=== PATIENT | female | born 1995 | race Caucasian/White ===

== ENCOUNTER 2016-03-23 14:58 | Emergency (ER) | payer OTHER ==
[~2016-03-23] VITALS: Ht 157.5 cm; Wt 60.0 kg
[~2016-03-23 14:58] MED LIST: FERR325T PO; ZOLO50TA PO
[2016-03-23 15:01] VITALS: BP 126/82; PULSE 134; RESP 20; TEMP 98.3; O2SAT 100
[2016-03-23 15:10] VITALS: PULSE 108; O2SAT 100
--- NOTE | 2016-03-23 15:59 | PD ---
HPI Chief Complaint: Cold / Flu Symptoms Time Seen by Provider: 15:57 Travel History International Travel<30 days: No Contact w/Intl Traveler<30days: No Traveled to known affect area: No History of Present Illness HPI 20-year-old female presents to the emergency department for evaluation of cough , sore throat, headache, body aches and subjective fever for one day. The patient states that her symptoms began last night. States that she has not taken anything for symptoms so far. She has had sick contacts over the past month. Denies any recent travel. She also complains of dental pain, states that for several months her wisdom teeth have been coming in and causing her pain. Denies nausea, vomiting, chest pain, shortness of breath, abdominal pain , diarrhea, constipation. Denies , last menstrual period was 2 weeks ago. No other complaints. PFSH Past Medical History Anemia: Yes Diminished Hearing: No (NEEDS TUBES IN EARS) Sleep Apnea: Yes Tetanus Vaccination: < 5 Years ?: Not LMP: 03/02/16 Menopausal: Yes : 2 Para: 1 Miscarriage: 1 Dilation and Curettage (D&C): No Social History Alcohol Use: No Tobacco Use: Yes Substance Use: No Allergies-Medications (Allergen,Severity, Reaction): Coded Allergies: Doxycycline (Verified Adverse Reaction, Severe, VOMITING, 03/23/16) Reported Meds & Prescriptions Reported Meds & Active Scripts Active Naproxen 500 Mg Tab 500 Mg PO BID 7 Days Zoloft (Sertraline HCl) 50 Mg Tab 50 Mg PO DAILY Reported Ferrous Sulfate 325 Mg Tab 325 Mg PO DAILY Review of Systems Except as stated in HPI: all other systems reviewed are Neg Physical Exam Narrative GENERAL: Well-nourished and well-developed pleasant patient in no acute distress who is nontoxic appearing. SKIN: Warm and dry. HEAD: Normocephalic and atraumatic. EYES: No injection, drainage, or hyphema noted. PERRLA. EOMI. ENT: No nasal drainage noted. Oropharynx is clear. NECK: Supple and the trachea is midline. CARDIOVASCULAR: Regular rate and rhythm. RESPIRATORY: Breath sounds are equal bilaterally with no accessory muscle use, wheezing, rhonchi, or crackles. MUSCULOSKELETAL: No obvious deformities, swelling, cyanosis, or ecchymosis is present throughout the upper and lower extremities. Patient has full range of motion without any signs of neurovascular compromise. NEUROLOGICAL: Awake, alert, and oriented. Normal speech and gait. Cranial nerves are grossly intact. Data Data Last Documented VS Vital Signs Date Time Temp Pulse Resp B/P Pulse Ox O2 Delivery O2 Flow Rate FiO2 03/23/16 15:10 108 100 03/23/16 15:01 98.3 20 126/82 Room Air Orders Influenzae A/B Antigen (03/23/16 15:56) MDM Medical Decision Making Medical Screen Exam Complete: Yes Emergency Medical Condition: Yes Differential Diagnosis Viral illness versus influenza versus URI versus dentalgia Narrative Course 20-year-old female presents to the emergency department for evaluation of cold and flu symptoms as well as dental pain. Patient is afebrile. She is tachycardic with heart rate of 108 bpm. Otherwise vital signs are stable. Physical examination is essentially unremarkable. Influenza swab is negative. This is a viral upper respiratory infection with dental pain secondary to wisdom teeth. She is instructed to follow-up with a dentist regarding her wisdom teeth. Discussed supportive care and when to return to the emergency department. Advised outpatient follow-up. Diagnosis Primary Impression: Upper respiratory infection Qualified Code: J06.9 - Upper respiratory tract infection, unspecified type Additional Impression: Pain, dental Referrals: Dentist Patient Instructions: General Instructions, Upper Respiratory Infection (ED) Departure Forms: Tests/Procedures, Work Release Enter return to work date: Mar 26, 2016 Additional Instructions: Take medication as prescribed with food and a full glass of water. Follow-up with your Dentist. Return to the ED for any acute worsening of symptoms. Med/Other Pt SpecificInfo: Prescription(s) given Scripts Naproxen 500 Mg [id number] Mg PO BID 7 Days Ref 0 Prov:Hortensia Montague 03/23/16 Disposition: 01 DISCHARGE HOME Condition: Stable Margareth Fowler Mar 23, 2016 15:59
[2016-03-23] MEDS ORDERED: NAPR500T PO (16:52)
[2016-06-18] MEDS ORDERED: PREN1MIS11 PO (14:38)
[2016-07-09] MEDS ORDERED: FERR325T50 PO (13:32)
== END 2016-03-23 16:58 | disposition home or self-care (01) ==
LOC: NEPB 14:58
DX: J06.9 Acute upper respiratory infection, unspecified (principal); K08.89 Other specified disorders of teeth and supporting structures; D64.9 Anemia, unspecified; Z72.0 Tobacco use
CPT/HCPCS: 87804; 99283

== ENCOUNTER 2016-05-06 14:57 | Emergency (ER) | payer OTHER ==
[~2016-05-06] VITALS: Ht 157.5 cm; Wt 62.0 kg
[~2016-05-06 14:57] MED LIST changes: +NAPR500T PO
[2016-05-06 14:59] VITALS: BP 153/84; PULSE 70; RESP 15; TEMP 98.2; O2SAT 98
--- NOTE | 2016-05-06 17:02 | PD ---
HPI Chief Complaint: Back/ Neck Pain or Injury Time Seen by Provider: 17:00 Travel History International Travel<30 days: No Contact w/Intl Traveler<30days: No Traveled to known affect area: No History of Present Illness HPI 20-year-old female presents to the emergency department for evaluation of low back pain that started 2 weeks ago without traumatic injury. Patient denies any fevers or chills. No loss of bowel or bladder control. No saddle anesthesias. She states she took ibuprofen for pain without relief. Patient states it is throughout her entire lower back. Patient also states she has hemorrhoids. She states this is due to going to the bathroom often, which is chronic for her. Patient denies any chronic medical problems. She takes no prescribed medications. She denies any history of IVDU. Patient does not believe she is , but states that her period was due yesterday and she has not started. PFSH Past Medical History Anemia: Yes Sleep Apnea: Yes ?: Unknown LMP: 04/05/16 Menopausal: Yes : 2 Para: 1 Miscarriage: 1 Dilation and Curettage (D&C): No Past Surgical History Section: Yes Social History Alcohol Use: No Tobacco Use: Yes (Pack day) Substance Use: No Allergies-Medications (Allergen,Severity, Reaction): Coded Allergies: Doxycycline (Verified Adverse Reaction, Severe, VOMITING, 05/06/16) Reported Meds & Prescriptions Reported Meds & Active Scripts Active Naproxen 500 Mg Tab 500 Mg PO BID 7 Days Zoloft (Sertraline HCl) 50 Mg Tab 50 Mg PO DAILY Reported Ferrous Sulfate 325 Mg Tab 325 Mg PO DAILY Review of Systems Except as stated in HPI: all other systems reviewed are Neg Physical Exam Narrative GENERAL: Well-nourished, well-developed female patient, ambulatory. Afebrile. SKIN: Focused skin assessment warm/dry. HEAD: Normocephalic. Atraumatic. EYES: No scleral icterus. No injection or drainage. NECK: Supple, trachea midline. No JVD or lymphadenopathy. CARDIOVASCULAR: Regular rate and rhythm without murmurs, gallops, or rubs. RESPIRATORY: Breath sounds equal bilaterally. No accessory muscle use. Lungs sounds are clear to auscultation. GASTROINTESTINAL: Abdomen soft, non-tender, nondistended. MUSCULOSKELETAL: No cyanosis, or edema. Bilateral upper and lower extremity strength 5/5. All symptoms are neurovascularly intact. BACK: No obvious deformity. No CVA tenderness. Patient has tenderness over bilateral lumbar paraspinal musculature. RECTAL EXAM: Patient has external hemorrhoid at the 6 o'clock position. Data Data Last Documented VS Vital Signs Date Time Temp Pulse Resp B/P Pulse Ox O2 Delivery O2 Flow Rate FiO2 05/06/16 14:59 98.2 70 15 153/84 98 Orders Ed Urine Pregnancytest Poc (05/06/16 16:59) Urinalysis - C+S If Indicated (05/06/16 16:59) Labs Laboratory Tests Test 05/06/16 17:18 Urine Color YELLOW Urine Turbidity HAZY Urine pH 6.0 Urine Specific [place] 1.023 Urine Protein 30 mg/dL Urine Glucose (UA) NEG mg/dL Urine Ketones NEG mg/dL Urine Occult Blood NEG Urine Nitrite NEG Urine Bilirubin NEG Urine Urobilinogen LESS THAN 2.0 MG/DL Urine Leukocyte Esterase NEG Urine RBC 1 /hpf Urine WBC 2 /hpf Urine Squamous Epithelial 8 /hpf Cells Urine Mucus MOD /lpf Microscopic Urinalysis Comment CULT NOT INDICATED MDM Medical Decision Making Medical Screen Exam Complete: Yes Emergency Medical Condition: Yes Medical Record Reviewed: Yes Differential Diagnosis Muscle strain versus muscle spasm versus UTI versus versus hemorrhoid Narrative Course 20-year-old female presents to the emergency department for evaluation of low back pain for 2 weeks without traumatic injury. No red flag symptoms. UA and urine test are ordered and pending. UA .shows no evidence of acute infection. Urine test is negative. I reexamined patient, she has no abdominal pain to palpation. Her back pain is easily reproducible with palpation and is worse with movement. She denies any abnormal vaginal discharge or bleeding. Patient states she was due to have her menstrual cycle yesterday so is approximately 4 weeks . I discussed the case my attending physician, Dr. Thacker, who also states that no further testing is needed for . Diagnosis Primary Impression: Low back pain Qualified Code: M54.5 - Acute bilateral low back pain without sciatica Additional Impressions: Qualified Code: Z3A.01 - Less than 8 weeks gestation of Hemorrhoid Qualified Code: K64.9 - Hemorrhoids, unspecified hemorrhoid type Additional Instructions: Increase fiber. Sitz baths for hemorrhoid. Cool compresses to hemorrhoid for pain. Take Tylenol every 4 hours as needed for pain. Follow-up with an regional construction manager and your primary care physician. Return to the emergency department for any acute worsening of symptoms. Med/Other Pt SpecificInfo: No Change to Meds Disposition: 01 DISCHARGE HOME Condition: Stable Arabella Zamora BISMARK May 06, 2016 17:02
[2016-05-06 17:33] LABS: BLOOD, URINE NEG (NEG); GLUCOSE,URINE NEG (NEG); KETONE, URINE NEG (NEG); MUCUS URINE MOD /lpf (OCC); NITRITE,URINE NEG (NEG); SQUAMOUS EPITHELIAL CELL URINE 8 /hpf (0-5); URINE COLOR YELLOW (YELLW/STRAW)
[2016-05-06 17:34] LABS: COMMENT (UR) CULT NOT INDICATED; CULTURE IF INDICATED CULT NOT INDICATED
[2016-05-06] MEDS ORDERED: ACETAMINOPHEN 325 MG TAB PO ONE (17:45)
[2016-06-18] MEDS ORDERED: PREN1MIS11 PO (14:38)
[2016-07-09] MEDS ORDERED: FERR325T50 PO (13:32)
== END 2016-05-06 17:58 | disposition home or self-care (01) ==
LOC: NEPB 14:57
DX: M54.5 Low back pain (principal); Z33.1 Pregnant state, incidental; K64.9 Unspecified hemorrhoids; Z3A.01 Less than 8 weeks gestation of pregnancy
CPT/HCPCS: 81001; 84703; 99283

== ENCOUNTER 2016-07-13 10:26 | Emergency (ER) | payer OTHER ==
[~2016-07-13] VITALS: Ht 157.5 cm; Wt 52.5 kg
[~2016-07-13 10:26] MED LIST changes: -FERR325T PO; +FERR325T50 PO; -NAPR500T PO; +PREN1MIS11 PO; -ZOLO50TA PO
[2016-07-13 10:27] VITALS: BP 124/65; PULSE 54; RESP 20; TEMP 98.4; O2SAT 99
[2016-07-13] MEDS ORDERED: ZOFR4TAB3 SL ×2 (10:49→12:13)
[2016-07-13] MEDS ORDERED: SODIUM CHLORID 0.9% 500 ML INJ 500 ML IV ONE (11:00)
[2016-07-13] MEDS ORDERED: FAMOTIDINE 20 MG TAB PO ONE (11:00)
[2016-07-13] MEDS ORDERED: SODIUM CHLORIDE 0.9% FLUSH 10 ML FLUSH IV FLUSH PRN (11:00)
[2016-07-13] MEDS ORDERED: ONDANSETRON HCL 4 MG/2 ML VIAL IVP ONE (11:00)
--- NOTE | 2016-07-13 11:10 | PD ---
HPI Chief Complaint: GI Complaint Time Seen by Provider: 11:03 Travel History International Travel<30 days: No Contact w/Intl Traveler<30days: No Traveled to known affect area: No History of Present Illness HPI Patient is approximately 13 weeks comes in complaining of nausea and vomiting times one week. Patient states she was prescribed Zofran but has not been taking it until today when she tried one dose, but she continued to have another episode of vomiting. Patient is A1. Patient reports history of preeclampsia with her first , hypertension, and anemia. Patient takes labetalol and iron supplements. Patient denies any chest pain, shortness of breath, loss change in bowel or bladder, or fevers. Patient reports pain in her epigastric region that occurs right before she has to vomit that radiates up into her chest. Pain lasts until approximately 30 minutes post emesis. Patient denies doing anything for this. Patient denies any other issues with her previous pregnancies. PFSH Past Medical History Hx Anticoagulant Therapy: No Anemia: Yes Cardiovascular Problems: No Chemotherapy: No Cerebrovascular Accident: No Diabetes: No Hypertension: Yes Respiratory: No Sleep Apnea: Yes ?: LMP: LMP 04/08/16 Menopausal: Yes : 2 Para: 1 Miscarriage: 1 Dilation and Curettage (D&C): No Past Surgical History Section: Yes Social History Alcohol Use: No Tobacco Use: Yes Substance Use: No Allergies-Medications (Allergen,Severity, Reaction): Coded Allergies: Doxycycline (Verified Adverse Reaction, Severe, VOMITING, 07/13/16) Reported Meds & Prescriptions Reported Meds & Active Scripts Active Phenergan Supp (Promethazine HCl) 12.5 Mg Supp 12.5 Mg RECTAL Q6H PRN Zofran Odt (Ondansetron Odt) 4 Mg Tab 4 Mg SL Q6HR PRN Keflex (Cephalexin) 500 Mg Cap 500 Mg PO Q8H Krissy-Time (Ferrous Sulfate) 325 Mg Tablet 325 Tab PO BID PRN Citranatal 90 Dha Pack ( W/O Vit A W/ Fe Carbo Pack) 90-1 & 300 Mg Pack 1 Ea PO DAILY 30 day supply. Reported Zofran Odt (Ondansetron Odt) 4 Mg Tab 4 Mg SL Q6HR PRN Review of Systems Except as stated in HPI: all other systems reviewed are Neg Physical Exam Narrative GENERAL: Well-developed, well nourished, in no acute distress, and non-ill appearing. SKIN: Focused skin assessment warm and dry. HEAD: Atraumatic. Normocephalic. EYES: Pupils equal and round. EOMI. No scleral icterus. No injection or drainage. ENT: No nasal bleeding or discharge. Mucous membranes pink and moist. NECK: Trachea midline. Supple. No nuclear rigidity. CARDIOVASCULAR: Regular rate and rhythm. No murmur appreciated. RESPIRATORY: No accessory muscle use. No respiratory distress. Clear to auscultation. Breath sounds equal bilaterally. GASTROINTESTINAL: Abdomen soft, non-tender, nondistended. Hepatic and splenic margins not palpable. Normal bowel sounds 4. No pulsatile mass. Gravid uterus. MUSCULOSKELETAL: No obvious deformities. No clubbing. No cyanosis. No edema. Full range of motion. NEUROLOGICAL: Awake and alert. No obvious cranial nerve deficits. Motor grossly within normal limits. Normal speech. PSYCHIATRIC: Appropriate mood and affect; insight and judgment normal. Data Data Last Documented VS Vital Signs Date Time Temp Pulse Resp B/P Pulse Ox O2 Delivery O2 Flow Rate FiO2 07/13/16 11:17 100 Room Air 07/13/16 10:27 98.4 54 20 124/65 Orders Basic Metabolic Panel (Bmp) (07/13/16 10:58) Urinalysis - C+S If Indicated (07/13/16 10:58) Iv Access Insert/Monitor (07/13/16 10:58) Ecg Monitoring (07/13/16 10:58) Oximetry (07/13/16 10:58) Ondansetron Inj (Zofran Inj) (07/13/16 11:00) Sodium Chloride 0.9% Flush (Ns Flush) (07/13/16 11:00) Famotidine (Pepcid) (07/13/16 11:00) Heart Tones (07/13/16 10:58) Sodium Chlorid 0.9% 500 Ml Inj (Ns 500 M (07/13/16 11:00) Urine Culture (07/13/16 11:16) Labs Laboratory Tests Test 07/13/16 11:16 Urine Color DARK-YELLOW Urine Turbidity HAZY Urine pH 7.0 Urine Specific [place] 1.028 Urine Protein 100 mg/dL Urine Glucose (UA) NEG mg/dL Urine Ketones 40 mg/dL Urine Occult Blood NEG Urine Nitrite NEG Urine Bilirubin NEG Urine Urobilinogen 4.0 MG/DL Urine Leukocyte Esterase LARGE Urine RBC 5 /hpf Urine WBC 20 /hpf Urine Squamous Epithelial 28 /hpf Cells Urine Transitional Epithelial <1 /hpf Cells Urine Amorphous Sediment RARE Urine Bacteria MOD /hpf Urine Mucus MANY /lpf Microscopic Urinalysis Comment CULTURE INDICATED Sodium Level 136 MEQ/L Potassium Level 3.4 MEQ/L Chloride Level 104 MEQ/L Carbon Dioxide Level 22.6 MEQ/L Anion Gap 9 MEQ/L Blood Urea Nitrogen 5 MG/DL Creatinine 0.67 MG/DL Estimat Glomerular Filtration 110 ML/MIN Rate Random Glucose 80 MG/DL Calcium Level 8.7 MG/DL MDM Medical Decision Making Medical Screen Exam Complete: Yes Emergency Medical Condition: Yes Differential Diagnosis Hyperemesis , gastritis , nausea and vomiting, electrolyte abnormality, UTI, other Narrative Course heart tones found to be in the 150s. 1200 patient resting comfortably in bed in no acute distress. Patient states was a little bit nauseous to but is hungry and wants to eat. He tells patient' s discharge home the prescription of Zofran and Phenergan suppositories as well as antibiotic Keflex for her UTI. Patient looks great, non-ill appearing but does appear slightly volume depleted without evidence of significant dehydration. The patient was given IVF in the Emergency Department for rehydration. The patient responded well and is tolerating fluids and appears hydrated. I suspect related versus possible gastritis by history and exam. The abdominal exam is unremarkable without defined focal tenderness. There are normal active bowel sounds without any masses, distension, or significant tenderness. There was no evidence of an acute, surgical abdomen at this time. There was no clinical evidence to support cholecystitis/cholelithiasis, pancreatitis, perforation of gastric ulcer, colitis, diverticulitis, peritonitis, obstruction, volvulus, early appendicitis , or hernial incarceration or strangulation at this time. There was no evidence to support vascular pathology such as AAA, mesenteric ischemia. There was also no clinical evidence by history, exam or risk factors to suggest atypical presentation of cardiac disease such as ACS, AMI or atypical angina. UTI was noted on UA patient is treated with outpatient antibiotics. During the course of the ED visit, the patient noted improvement. Clinical picture was discussed with the patient, as well as plan of care. The patient was instructed to follow up with their physician. Abdominal pain warnings were discussed with the patient. The patient is to return if worsens, pain worsens or changes, develop fever, inability to tolerate fluids with or without vomiting, increased vomiting , blood in vomit, unable to establish follow up or as needed. The patient agrees with plan. The patient was tolerating fluids at time of discharge. Patient in no obvious distress upon re-evaluation. Tolerating by mouth in the ER without any episodes of vomiting during ER stay. All pertinent laboratory result(s) discussed with patient. Patient was asked if they wanted to speak to my attending, which the patient did not wish to do at this time. Any questions/ concerns in reference to patient diagnosis/condition discussed and clarified prior to patient's discharge. Reinforced sheer importance of close follow up with patient's primary physician or primary care clinic. Instructed patient to return to ED immediately, if symptoms return/worsen. Pt showed understanding of above instructions. Further instructions and recommendations were detailed in discharge paperwork. Pt ambulated without difficulty out of ED at discharge. Diagnosis Primary Impression: Nausea and vomiting during Additional Impression: UTI in Qualified Code: O23.41 - UTI in , first trimester Patient Instructions: General Instructions, Hyperemesis Gravidarum (ED), Urinary Tract Infection in (ED) Additional Instructions: Follow-up with your OB in 2-3 days for reevaluation. Take all medication as prescribed. Return to the emergency department if symptoms get worse. Med/Other Pt SpecificInfo: Prescription(s) given Scripts Promethazine Supp (Phenergan Supp)12.5 Mg Supp12.5 Mg RECTAL Q6H PRN (NAUSEA OR VOMITING) #8 SUPP Ref 0 Prov:Barney Mullen MD 07/13/16 Ondansetron Odt (Zofran Odt)4 Mg Tab4 Mg SL Q6HR PRN (Nausea/Vomiting) #12 TAB Ref 0 Prov:Barney Mullen MD 07/13/16 Cephalexin (Keflex)500 Mg [id number] Mg PO Q8H #30 CAP Ref 0 Prov:Barney Mullen MD 07/13/16 Disposition: 01 DISCHARGE HOME Condition: Stable Glenn Carver Jul 13, 2016 11:10
[2016-07-13 11:17] VITALS: O2SAT 100
[2016-07-13 11:33] LABS: BACTERIA, URINE MOD /hpf; BLOOD, URINE NEG (NEG); COMMENT (UR) CULTURE INDICATED; CULTURE IF INDICATED CULTURE INDICATED; GLUCOSE,URINE NEG (NEG); KETONE, URINE 40 mg/dL (NEG); MUCUS URINE MANY /lpf (OCC); NITRITE,URINE NEG (NEG); SQUAMOUS EPITHELIAL CELL URINE 28 /hpf (0-5); TRANSITIONAL EPI CELLS, URINE <1 /hpf; URINE COLOR DARK-YELLOW (YELLW/STRAW)
[2016-07-13 11:45] LABS: BICARBONATE 22.6 MEQ/L (21.0-32.0); POTASSIUM 3.4 MEQ/L (3.5-5.1)
[2016-07-13] MEDS ORDERED: PROM2SUP RECTAL (12:13)
[2016-07-13] MEDS ORDERED: CEPH-460 PO (12:13)
== END 2016-07-13 12:45 | disposition home or self-care (01) ==
LOC: NEPD 10:26
DX: O23.41 Unspecified infection of urinary tract in pregnancy, first trimester (principal); O16.1 Unspecified maternal hypertension, first trimester; Z3A.13 13 weeks gestation of pregnancy
CPT/HCPCS: 80048; 81001; 87086; 96361; 96374; 99284; J2405; J7040

== ENCOUNTER 2016-07-17 11:07 | Emergency (ER) | payer OTHER ==
[~2016-07-17] VITALS: Ht 157.5 cm; Wt 53.0 kg
[~2016-07-17 11:07] MED LIST changes: +CEPH-460 PO; +PROM2SUP RECTAL; +ZOFR4TAB3 SL
[2016-07-17 11:09] VITALS: BP 146/73; PULSE 52; RESP 16; TEMP 98.4; O2SAT 100
--- NOTE | 2016-07-17 11:18 | PD ---
Physical Exam Time Seen by Provider: 11:15 Narrative 20yo F, 14 weeks , c/o not being able to eat and vomiting after eating. Constant vomiting x2 weeks. C/o mid chest pain and abd pain. Denies vag bleeding. Reports chills. Unknown fever. Feels weak and tired. Patient seen in triage. VS reviewed. Awaiting bed placement. Data Data Last Documented VS Vital Signs Date Time Temp Pulse Resp B/P Pulse Ox O2 Delivery O2 Flow Rate FiO2 07/17/16 11:09 98.4 52 16 146/73 100 Room Air MDM Supervised Visit with DAGO: Margareth Talbert Jul 17, 2016 11:18
--- NOTE | 2016-07-17 11:27 | PD ---
HPI . Nausea and vomiting for 2 weeks Chief Complaint: Related Problem Time Seen by Provider: 11:27 Travel History International Travel<30 days: No Contact w/Intl Traveler<30days: No Traveled to known affect area: No History of Present Illness HPI 20-year-old female who is approximately 14 weeks with one miscarriage here with complaints of nausea and vomiting for over 2 weeks. Patient was seen most recently on July 13, 2016 here at [place] for the same. She was given Phenergan and Zofran, which she tells me she has been using at home and it is not helping. She tells me that she vomited 10 times alone this morning. Tells me she cannot keep anything down including saltine crackers and eugenio selma. His tried water, warm water, Gatorade etc. without improvement. She denies any vaginal discharge, bleeding or abdominal pain. She has no other complaints. She does report having nausea and vomiting during her first , but not as severe as today. She tells me she has not seen her EQUIPMENT OR MACHINERY CLEANER , because she actually missed the appointment yesterday. Now she has to wait until July 25 before she is seen. She was told by that office to come to the ED. PFSH Past Medical History Hx Anticoagulant Therapy: No Anemia: Yes Cardiovascular Problems: Yes Chemotherapy: No Cerebrovascular Accident: No Diabetes: No Diminished Hearing: No (NEEDS TUBES IN EARS) Hypertension: Yes Respiratory: No Sleep Apnea: Yes Tetanus Vaccination: < 5 Years Influenza Vaccination: No ?: LMP: 04/08/16 Menopausal: Yes : 2 Para: 1 Miscarriage: 1 Dilation and Curettage (D&C): No Past Surgical History Section: Yes Social History Alcohol Use: No Tobacco Use: No Substance Use: No Allergies-Medications (Allergen,Severity, Reaction): Coded Allergies: Doxycycline (Verified Adverse Reaction, Severe, VOMITING, 07/17/16) Reported Meds & Prescriptions Reported Meds & Active Scripts Active Phenergan Supp (Promethazine HCl) 12.5 Mg Supp 12.5 Mg RECTAL Q6H PRN Krissy-Time (Ferrous Sulfate) 325 Mg Tablet 325 Tab PO BID PRN Citranatal 90 Dha Pack ( W/O Vit A W/ Fe Carbo Pack) 90-1 & 300 Mg Pack 1 Ea PO DAILY 30 day supply. Reported Zofran Odt (Ondansetron Odt) 4 Mg Tab 4 Mg SL Q6HR PRN Review of Systems General / Constitutional: No: Fever Eyes: No: Visual changes HENT: No: Headaches Cardiovascular: No: Chest Pain or Discomfort Respiratory: No: Shortness of Breath Gastrointestinal: Positive: Nausea, Vomiting, No: Diarrhea, Abdominal Pain Genitourinary: No: Dysuria Musculoskeletal: No: Pain Skin: No Rash Neurologic: No: Weakness Psychiatric: No: Depression Endocrine: No: Polydipsia Hematologic/Lymphatic: No: Easy Bruising Physical Exam Narrative GENERAL: AAO x 3, no acute distress, Well-nourished, well-developed patient. SKIN: Warm and dry. No visible rashes or bruising. Normal skin turgor HEAD: Normocephalic and atraumatic. EYES: No scleral icterus. No injection or drainage. EOM intact, PERRLA ENT: No nasal drainage noted. Mucous membranes pink. Airway patent. Moist mucous membranes NECK: Supple, trachea midline. No JVD. CARDIOVASCULAR: Regular rate and rhythm without murmurs, gallops, or rubs. RESPIRATORY: Breath sounds equal bilaterally. No accessory muscle use. No rhonchi or rales. GASTROINTESTINAL: Abdomen soft, non-tender, nondistended. EXTREMITIES: No cyanosis or edema. BACK: Nontender without obvious deformity. No CVA tenderness. PSYCH: AAO x 3, normal affect. Data Data Last Documented VS Vital Signs Date Time Temp Pulse Resp B/P Pulse Ox O2 Delivery O2 Flow Rate FiO2 07/17/16 13:14 97.7 84 16 118/76 99 07/17/16 11:09 Room Air Orders Sodium Chlor 0.9% 1000 Ml Inj (Ns 1000 M (07/17/16 11:45) Comprehensive Metabolic Panel (07/17/16 11:32) Ondansetron Inj (Zofran Inj) (07/17/16 13:00) Labs Laboratory Tests Test 07/17/16 11:40 Sodium Level 137 MEQ/L Potassium Level 3.3 MEQ/L Chloride Level 101 MEQ/L Carbon Dioxide Level 27.5 MEQ/L Anion Gap 9 MEQ/L Blood Urea Nitrogen 5 MG/DL Creatinine 0.72 MG/DL Estimat Glomerular Filtration 101 ML/MIN Rate Random Glucose 89 MG/DL Calcium Level 9.3 MG/DL Total Bilirubin 0.7 MG/DL Aspartate Amino Transf 6 U/L (AST/SGOT) Alanine Aminotransferase 12 U/L (ALT/SGPT) Alkaline Phosphatase 52 U/L Total Protein 7.5 GM/DL Albumin 3.6 GM/DL MDM Medical Decision Making Medical Screen Exam Complete: Yes Emergency Medical Condition: Yes Medical Record Reviewed: Yes Differential Diagnosis , hyperemesis gravidarum, viral gastroenteritis Narrative Course 20-year-old female who is approximately 14 weeks here with continued nausea and vomiting despite anti-emetics. I will check labs and provide some hydration. Her nausea is mild, so we will hold off on any additional meds. Prior to dc, I went to check on the patient. She tells me she is feeling better after the IV fluids, but still has some nausea and would like meds. Jv provided. I discussed her results with her. Discussed with zeferino Braswell for discharge. Recommend follow-up with her EQUIPMENT OR MACHINERY CLEANER as soon as possible. Patient verbalized understanding of instructions, questions were answered, and thanked me for their care. I advised them if their condition worsens, please return to the nearest emergency room for further care. Diagnosis Primary Impression: Nausea and vomiting during Patient Instructions: General Instructions Additional Instructions: Continue using the medications that you were recently prescribed for nausea and vomiting. Please follow-up with your EQUIPMENT OR MACHINERY CLEANER as soon as possible. Return to the emergency department for worsening symptoms or abdominal pain. Med/Other Pt SpecificInfo: No Change to Meds Disposition: 01 DISCHARGE HOME Condition: Stable Marry Martins Jul 17, 2016 11:27
[2016-07-17] MEDS ORDERED: SODIUM CHLOR 0.9% 1000 ML INJ 1,000 ML IV ONE (11:45)
[2016-07-17 12:15] LABS: ANION GAP 9 MEQ/L (5-15); BICARBONATE 27.5 MEQ/L (21.0-32.0); BLOOD UREA NITROGEN 5 MG/DL (7-18); CHLORIDE 101 MEQ/L (98-107); GLOMERULAR FILTRATION RATE 101 ML/MIN (>89); POTASSIUM 3.3 MEQ/L (3.5-5.1); SODIUM (NA) 137 MEQ/L (136-145)
[2016-07-17 12:17] LABS: ALT (GPT) 12 U/L (10-53); AST (GOT) 6 U/L (15-37)
[2016-07-17 12:19] LABS: ALKALINE PHOSPHATASE 52 U/L (45-117); TOTAL BILIRUBIN ADULT 0.7 MG/DL (0.2-1.0)
[2016-07-17] MEDS ORDERED: ONDANSETRON HCL 4 MG/2 ML VIAL IV PUSH ONE (13:00)
[2016-07-17 13:14] VITALS: BP 118/76; TEMP 97.7
== END 2016-07-17 13:14 | disposition home or self-care (01) ==
LOC: NEPD 11:07
DX: O26.892 Other specified pregnancy related conditions, second trimester (principal); R11.2 Nausea with vomiting, unspecified; I10 Essential (primary) hypertension; D64.9 Anemia, unspecified
CPT/HCPCS: 80053; 96361; 96374; 99284; J2405; J7030

== ENCOUNTER 2016-08-25 23:22 | Observation (INO) | payer OTHER ==
[~2016-08-25 23:22] MED LIST changes: -CEPH-460 PO
--- NOTE | 2016-08-25 23:31 | PD ---
HPI Chief Complaint panic attack Travel History International Travel<30 Days: No Contact w/Intl Traveler<30Days: No History of Present Illness HPI 21 yo @ 19w6d by 11 wk US. care at [facility], 2 visits. History of CHTN and proteinuria, and has baseline 24 hour urine pending. Normal BPs, no medications. Patient presents by EMS for a panic attack. She denies any inciting event today. She reports increasing anxiety since her first child was born, no current medications. She awoke in the morning with anxiety. She went to work, as a packager hand and anxiety worsened. She reports diarrhea today <10 times today, and c/o constipation. She states she has been drinking fluids. She has had nausea and vomiting throughout this and has been on Phenergan suppositories and Zofran. She took one dose of Zofran earlier today. She denies drug usage today. She reports upper abdominal/chest pain from the wrenching. No VB, LOF. No UC/pelvic pain. No urinary symptoms. History Past Medical History Narrative Medical CHTN with proteinuria Anxiety Obstetric History Obstetric History 2015 @ 39 weeks for arrest of labor 2016 @ 17 weeks - placenta previa with PPROM and cord prolapse, IUFD Past Surgical History Narrative Surgical Ear Tubes Family History Family History: Negative Social History Alcohol Use: No Tobacco Use: No (quit) Substance Abuse: No (denies) Allergies-Medications (Allergen,Severity, Reaction): Coded Allergies: Doxycycline (Verified Adverse Reaction, Severe, VOMITING, 08/22/16) Home Meds Active Scripts Promethazine Supp (Phenergan Supp)12.5 Mg Supp12.5 Mg RECTAL Q6H PRN (NAUSEA OR VOMITING) #8 SUPP Ref 0 Prov:Barney Mullen MD 07/13/16 Ferrous Sulfate (Krissy-Time)325 Mg [id number] Tab PO BID PRN (SEE DOSE INSTRUCTIONS) #60 TAB Ref 1 Prov:Aleisha Lowery 07/09/16 W/O Vit A W/ Fe Carbo Pack (Citranatal 90 Dha Pack)90-1 & 300 Mg Pack1 Ea PO DAILY #60 PACK Ref 11 30 day supply. Prov:Anai Holley 06/18/16 Reported Medications Ondansetron Odt (Zofran Odt)4 Mg Tab4 Mg SL Q6HR PRN (Nausea/Vomiting) #30 TAB Ref 0 07/13/16 Review of Systems ROS Limitations: Altered Mental Status, Poor Historian General / Constitutional: No: Fever, Chills HENT: No: Headaches, Lightheadedness Cardiovascular: Chest Pain or Discomfort (from wrenching ) Respiratory: Cough, No: Short of Breath, Wheezing Gastrointestinal: Nausea, Vomiting, Diarrhea, Abdominal Pain (from wrenching) Genitourinary: No: Urgency, Frequency, Dysuria, Pelvic Pain, Discharge, Vaginal Bleeding Musculoskeletal: No: Limited ROM, Cramping, Edema Skin: No Rash, No Itching, No Lesions Neurologic: No: Syncope, Focal Abnormalities Psychiatric: Anxiety Hematologic/Lymphatic: No Easy Bruising, No Lymph Node Enlargement Physical Exam Exam Limitations: Altered Mental Status, Poor Historian Vital Signs Date Time Temp Pulse Resp B/P Pulse Ox O2 Delivery O2 Flow Rate FiO2 08/25/16 23:35 45 117/59 08/25/16 23:35 98.3 20 Narrative GENERAL: poorly nourished, then. altered mental status. unable to keep still or focus. demanding to be in the shower. waving arms in the air around her. SKIN: Warm and dry. pale HEAD: Normocephalic and atraumatic. EYES: No scleral icterus. No injection or drainage. ENT: No nasal drainage noted. Mucous membranes pink. Airway patent. NECK: trachea midline. No JVD. CARDIOVASCULAR: bradycardic 60s, Regular and rhythm without murmurs, gallops, or rubs. RESPIRATORY: Breath sounds equal bilaterally. No accessory muscle use - only when wrenching ABDOMEN/GI: Abdomen soft, non-tender, no rebound, no guarding Gravid to UMB GENITOURINARY: External Genitalia: intact and normal in appearance BUS glands: [-] SVE: closed/thick/high FHT's: FHR 100s BEDSIDE US: viable fetus, FHR 100s, grossly normal fluid EXTREMITIES: No cyanosis or edema. BACK: Nontender without obvious deformity. No CVA tenderness. NEUROLOGICAL: Awake and alert. Motor and sensory grossly within normal limits. Normal speech. Data Data Vital Signs Reviewed: Yes Labs Laboratory Tests Test 08/26/16 00:00 Urine Color YELLOW (YELLW/STRAW) Urine Turbidity HAZY (CLEAR) Urine pH 7.5 (5.0-8.5) Urine Specific [place] 1.032 (1.002-1.035) Urine Protein 100 mg/dL (NEG-TRACE) Urine Glucose (UA) NEG mg/dL (NEG) Urine Ketones 150 mg/dL (NEG) Urine Occult Blood NEG (NEG) Urine Nitrite NEG (NEG) Urine Bilirubin NEG (NEG) Urine Urobilinogen 2.0 MG/DL (LESS THAN 2.0) Urine Leukocyte Esterase MOD (NEG) Urine RBC 1 /hpf (0-3) Urine WBC 5 /hpf (0-5) Urine Squamous Epithelial 5 /hpf (0-5) Cells Urine Renal Epithelial Cells <1 /hpf (NONE) Urine Amorphous Sediment RARE Urine Bacteria RARE /hpf (NONE) Urine Mucus MOD /lpf (OCC) Microscopic Urinalysis Comment CULT NOT INDICATED Urine Opiates Screen NEG (NEG) Urine Barbiturates Screen NEG (NEG) Urine Amphetamines Screen NEG (NEG) Urine Benzodiazepines Screen NEG (NEG) Urine Cocaine Screen NEG (NEG) Urine Cannabinoids Screen POS (NEG) MDM Narrative Course / MDM 19 weeks Panic attack with history of anxiety Persistent N/V during Forced wrenching by patient Dehydration +THC with mental status changes Low FHR No s/s of laboring or cervical dilation Plan Observation IV hydration Pending CBC, CMP US in AM with Diagnostics Monitor drug induced mental status changes, psychiatric evaluation as indicated Minoo Clement MD Aug 25, 2016 23:31
[2016-08-25 23:35] VITALS: BP 117/59; PULSE 45; RESP 20; TEMP 98.3
[2016-08-26] VITALS (13 sets, daily range): BP systolic 106–143; BP diastolic 43–73; PULSE 45–71; RESP 16–18; TEMP 97.9–98.7
[2016-08-26 00:21] LABS: BACTERIA, URINE RARE /hpf; BLOOD, URINE NEG (NEG); COMMENT (UR) CULT NOT INDICATED; CULTURE IF INDICATED CULT NOT INDICATED; GLUCOSE,URINE NEG (NEG); KETONE, URINE 150 mg/dL (NEG); MUCUS URINE MOD /lpf (OCC); NITRITE,URINE NEG (NEG); PH, URINE 7.5 (5.0-8.5); RENAL EPITHELIAL CELLS <1 /hpf; SQUAMOUS EPITHELIAL CELL URINE 5 /hpf (0-5); URINE COLOR YELLOW (YELLW/STRAW)
[2016-08-26 00:44] LABS: AMPHETAMINE, URINE NEG (NEG); BARBITURATES, URINE NEG (NEG); COCAINE, URINE NEG (NEG)
[2016-08-26] MEDS ORDERED: LACTATED RINGER'S 1000 ML INJ 1,000 ML IV ONE (01:15)
[2016-08-26] MEDS ORDERED: ACETAMINOPHEN 325 MG TAB PO PRN (01:15)
[2016-08-26] MEDS ORDERED: SODIUM CHLORIDE 0.9% FLUSH 10 ML FLUSH IV FLUSH PRN (01:15)
[2016-08-26 01:57] LABS: ALT (GPT) 13 U/L (10-53); ANION GAP 17 MEQ/L (5-15); AST (GOT) 9 U/L (15-37); BICARBONATE 19.5 MEQ/L (21.0-32.0); BLOOD UREA NITROGEN 9 MG/DL (7-18); CHLORIDE 105 MEQ/L (98-107); GLOMERULAR FILTRATION RATE 66 ML/MIN (>89); POTASSIUM 3.3 MEQ/L (3.5-5.1); SODIUM (NA) 141 MEQ/L (136-145)
[2016-08-26 01:58] LABS: AUTOMATED NEUTROPHIL # 15.8 TH/MM3 (1.8-7.7); BASOPHIL # 0.1 TH/MM3 (0-0.2); BASOPHIL % 0.5 % (0.0-2.0); HEMATOCRIT 31.6 % (35.0-46.0); HEMO FLAGS DIFF FINAL; LYMPH % 5.6 % (9.0-44.0); MEAN CELL VOLUME 81.2 FL (80.0-100.0); MEAN CORPUSCULAR HEMOGLOBIN 25.2 PG (27.0-34.0); MONO % 1.5 % (0.0-8.0); NEUT % 92.4 % (16.0-70.0); PLATELET COUNT 384 TH/MM3 (150-450); RED BLOOD COUNT 3.89 MIL/MM3 (4.00-5.30); RED CELL DISTRIBUTION WIDTH 18.7 % (11.6-17.2); WHITE BLOOD COUNT 17.1 TH/MM3 (4.0-11.0)
[2016-08-26 01:59] LABS: ALKALINE PHOSPHATASE 64 U/L (45-117); TOTAL BILIRUBIN ADULT 0.9 MG/DL (0.2-1.0)
[2016-08-26] MEDS: ONDANSETRON HCL 4 MG/2 ML VIAL IV PUSH PRN ×2 (02:09→08:18)
[2016-08-26] MEDS: LACTATED RINGER'S 1000 ML INJ 1,000 ML IV SCH ×4 (02:09→19:42)
[2016-08-26] MEDS ORDERED: PROMETHAZINE HCL 25 MG SUPP RECTAL ONE (02:15)
[2016-08-26] MEDS: SODIUM CHLORIDE 0.9% FLUSH 10 ML FLUSH IV FLUSH SCH ×2 (09:00→21:00)
--- NOTE | 2016-08-26 09:02 | PD.OB.ANTE ---
Subjective Interval History Overnight no new concerns, and she states that her bleeding is decreased. Denies chest pain, shortness of breath. Antepartum ROS: Denies: New complaints Objective Vital Signs Vital Signs Date Time Temp Pulse Resp B/P Pulse Ox O2 Delivery O2 Flow Rate FiO2 08/26/16 07:20 16 08/26/16 07:20 97.9 08/26/16 07:17 48 115/59 08/26/16 06:00 16 08/26/16 04:00 16 08/26/16 02:36 16 08/26/16 02:00 46 143/69 08/26/16 01:59 18 08/25/16 23:35 45 117/59 08/25/16 23:35 98.3 20 Lab & Micro Results Test 08/26/16 08/26/16 00:00 00:45 Urine Color YELLOW Urine Turbidity HAZY Urine pH 7.5 Urine Specific Thorp 1.032 Urine Protein 100 mg/dL Urine Glucose (UA) NEG mg/dL Urine Ketones 150 mg/dL Urine Occult Blood NEG Urine Nitrite NEG Urine Bilirubin NEG Urine Urobilinogen 2.0 MG/DL Urine Leukocyte Esterase MOD Urine RBC 1 /hpf Urine WBC 5 /hpf Urine Squamous Epithelial 5 /hpf Cells Urine Renal Epithelial Cells <1 /hpf Urine Amorphous Sediment RARE Urine Bacteria RARE /hpf Urine Mucus MOD /lpf Microscopic Urinalysis Comment CULT NOT INDICATED Urine Opiates Screen NEG Urine Barbiturates Screen NEG Urine Amphetamines Screen NEG Urine Benzodiazepines Screen NEG Urine Cocaine Screen NEG Urine Cannabinoids Screen POS White Blood Count 17.1 TH/MM3 Red Blood Count 3.89 MIL/MM3 Hemoglobin 9.8 GM/DL Hematocrit 31.6 % Mean Corpuscular Volume 81.2 FL Mean Corpuscular Hemoglobin 25.2 PG Mean Corpuscular Hemoglobin 31.0 % Concent Red Cell Distribution Width 18.7 % Platelet Count 384 TH/MM3 Mean Platelet Volume 8.1 FL Neutrophils (%) (Auto) 92.4 % Lymphocytes (%) (Auto) 5.6 % Monocytes (%) (Auto) 1.5 % Eosinophils (%) (Auto) 0.0 % Basophils (%) (Auto) 0.5 % Neutrophils # (Auto) 15.8 TH/MM3 Lymphocytes # (Auto) 1.0 TH/MM3 Monocytes # (Auto) 0.2 TH/MM3 Eosinophils # (Auto) 0.0 TH/MM3 Basophils # (Auto) 0.1 TH/MM3 CBC Comment DIFF FINAL Differential Comment Sodium Level 141 MEQ/L Potassium Level 3.3 MEQ/L Chloride Level 105 MEQ/L Carbon Dioxide Level 19.5 MEQ/L Anion Gap 17 MEQ/L Blood Urea Nitrogen 9 MG/DL Creatinine 1.03 MG/DL Estimat Glomerular Filtration 66 ML/MIN Rate Random Glucose 119 MG/DL Calcium Level 9.3 MG/DL Total Bilirubin 0.9 MG/DL Aspartate Amino Transf 9 U/L (AST/SGOT) Alanine Aminotransferase 13 U/L (ALT/SGPT) Alkaline Phosphatase 64 U/L Total Protein 8.7 GM/DL Albumin 4.0 GM/DL Physical Exam GENERAL: Well-nourished, well-developed patient. CARDIOVASCULAR: Regular rate and rhythm without murmurs, gallops, or rubs. RESPIRATORY: Breath sounds equal bilaterally. No accessory muscle use. ABDOMEN/GI: Abdomen soft, non-tender. EXTREMITIES: No cyanosis or edema, non-tender, without signs of DVT. Assessment and Plan Problem List: (1) Status: Acute (2) Nausea and vomiting during Status: Acute (3) Marijuana use, continuous Status: Acute (4) Bradycardia Status: Acute (5) Abnormal EKG Status: Acute (6) Altered mental status Status: Resolved Assessment and Plan 21-year-old at 20 weeks gestation in presenting with altered mental status and positive marijuana screen #1 IUP bradycardia - Maternal medicine to evaluate ultrasound this morning - If testing reassuring, can be discharged safely from an APPLICATIONS SCIENTIST standpoint #2 altered mental status Now resolved, likely secondary to marijuana intoxication based on initial exam findings - Consult psychiatry for substance abuse and possible psychiatric comorbidity #3 sinus bradycardia and abnormal EKG Heart rate in the 40s, EKG showing sinus bradycardia with prolonged QT interval and shortened UT interval - Consult cardiology - Monitor clinically #4 dehydration with nausea and vomiting Patient had dehydration on admission, improved with IV fluids - Continue maintenance IV fluids Rodolfo Beckford MD R1 Aug 26, 2016 09:02
--- NOTE | 2016-08-26 10:15 | PD.PSY.CON ---
Provisional Diagnosis Admission Date Aug 26, 2016 at 01:17 [place] I. Panic attacks, adjustment disorder with depressive symptoms and anxiety, cannabis use disorder [place] II. Deferred [place] III. Hypertension, 20 weeks History of Present Illness Service Psychiatry Consult Requested By Primary Care Physician No Primary Care Physician HPI The patient is a 21-year-old woman, domicile with her boyfriend, employed, without any previous psychiatric history, no previous psychiatric hospitalizations, no previous suicidal attempts, medical history hypertension, with 20 weeks gestation in presenting with altered mental status. Positive marijuana screen. Admitted due to altered mental status, sinus bradycardia, dehydration. Consulted to psychiatry due to anxiety and potential underlying psychiatric condition. On somatic evaluation today patient is calm, cooperative, pleasant. She reports feeling much better today. Patient reports mood lability, frequent crying spells, frequent episodes of palpitation, sweating anxiety. Patient says that she has been experiencing this anxiety episode very often. But, they have increased as her progresses. Patient says that she has been using marijuana daily to treat her anxiety and also her frequent nausea. Patient also reports insomnia and poor appetite. She denies hopelessness, she denies helplessness, she denies anhedonia, she denies generalized pessimism, denies low self-esteem, denies suicidal and homicidal ideation. She denies symptoms of quirino and psychosis, visual and auditory hallucinations. Patient is fully oriented 3, no confusion, no fluctuation of consciousness, no attention deficit present. No agitation, no aggressive behavior. During the evaluation patient has moments of tears and emotionality. Patient denies the use of alcohol and other illicit drugs. Review of Systems Constitutional: DENIES: Diaphoretic episodes, Fatigue, Fever, Weight gain, Weight loss, Chills, Dizziness, Change in appetite, Night Sweats Endocrine: DENIES: Abnorml menstrual pattern, Heat/cold intolerance, Polydipsia , Polyuria, Polyphagia Eyes: DENIES: Blurred vision, Diplopia, Eye inflammation, Eye pain, Vision loss , Photosensitivity, Double Vision Ears, nose, mouth, throat: DENIES: Tinnitus, Hearing loss, Vertigo, Nasal discharge, Oral lesions, Throat pain, Hoarseness, Ear Pain, Running Nose, Epistaxis, Sinus Pain, Toothache, Odynophagia Respiratory: DENIES: Apneas, Cough, Snoring, Wheezing, Hemoptysis, Sputum production, Shortness of breath Cardiovascular: DENIES: Chest pain, Palpitations, Syncope, Dyspnea on Exertion , PND, Lower Extremity Edema, Orthopnea, Claudication Gastrointestinal: COMPLAINS OF: Nausea, Vomiting, DENIES: Abdominal pain, Black stools, Bloody stools, Constipation, Diarrhea, Difficulty Swallowing, Anorexia Musculoskeletal: DENIES: Joint pain, Muscle aches, Stiffness, Joint Swelling, Back pain, Neck pain Integumentary: DENIES: Abnormal pigmentation, Pruritus, Rash, Nail changes, Breast masses, Breast skin changes, Nipple discharge Hematologic/lymphatic: DENIES: Bruising, Lymphadenopathy Immunologic/allergic: DENIES: Eczema, Urticaria Neurologic: DENIES: Abnormal gait, Headache, Localized weakness, Paresthesias, Seizures, Speech Problems, Tremor, Poor Balance Psychiatric: COMPLAINS OF: Anxiety, Depression Past Family Social History Coded Allergies: Doxycycline (Verified Adverse Reaction, Severe, VOMITING, 08/22/16) Active Scripts Promethazine Supp (Phenergan Supp)12.5 Mg Supp12.5 Mg RECTAL Q6H PRN (NAUSEA OR VOMITING) #8 SUPP Ref 0 Prov:Barney Mullen MD 07/13/16 Ferrous Sulfate (Krissy-Time)325 Mg Vranps220 Tab PO BID PRN (SEE DOSE INSTRUCTIONS) #60 TAB Ref 1 Prov:Aleisha Lowery 07/09/16 W/O Vit A W/ Fe Carbo Pack (Citranatal 90 Dha Pack)90-1 & 300 Mg Pack1 Ea PO DAILY #60 PACK Ref 11 30 day supply. Prov:Anai Holley 06/18/16 Reported Medications Ondansetron Odt (Zofran Odt)4 Mg Tab4 Mg SL Q6HR PRN (Nausea/Vomiting) #30 TAB Ref 0 07/13/16 Current Medications Medications (Trade) Dose Ordered Sig/Viviana Route Start Time Stop Time Status Last Admin (Lr 1000 ml Inj) 1,000 ml @ 100 mls/hr Q10H IV 08/26/16 01:13 08/26/16 08:26 (Tylenol) 650 mg Q4H PRN PO 08/26/16 01:15 (NS Flush) 2 ml BID IV FLUSH 08/26/16 09:00 (NS Flush) 2 ml UNSCH PRN IV FLUSH 08/26/16 01:15 (Zofran Inj) 4 mg Q6HR PRN IV PUSH 08/26/16 01:15 08/26/16 08:18 Family History Patient reports that she has 2 cousins with bipolar disorder Social History Patient was born in [place], but raised in [place]. Lives with her boyfriend in [place] she has a 2 years old daughter. 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 Her highest level of education is 10th grade. Patient's Strengths (min. 2) Family support, employed Physical Exam On physical exam, no EPS, no tremors, no weakness, no psychomotor agitation or retardation Vital Signs Vital Signs Date Time Temp Pulse Resp B/P Pulse Ox O2 Delivery O2 Flow Rate FiO2 08/26/16 07:20 16 08/26/16 07:20 97.9 08/26/16 07:17 48 115/59 Lab Results Lab & Micro Results Test 08/26/16 08/26/16 00:00 00:45 Urine Color YELLOW Urine Turbidity HAZY Urine pH 7.5 Urine Specific [place]vere 1.032 Urine Protein 100 mg/dL Urine Glucose (UA) NEG mg/dL Urine Ketones 150 mg/dL Urine Occult Blood NEG Urine Nitrite NEG Urine Bilirubin NEG Urine Urobilinogen 2.0 MG/DL Urine Leukocyte Esterase MOD Urine RBC 1 /hpf Urine WBC 5 /hpf Urine Squamous Epithelial 5 /hpf Cells Urine Renal Epithelial Cells <1 /hpf Urine Amorphous Sediment RARE Urine Bacteria RARE /hpf Urine Mucus MOD /lpf Microscopic Urinalysis Comment CULT NOT INDICATED Urine Opiates Screen NEG Urine Barbiturates Screen NEG Urine Amphetamines Screen NEG Urine Benzodiazepines Screen NEG Urine Cocaine Screen NEG Urine Cannabinoids Screen POS White Blood Count 17.1 TH/MM3 Red Blood Count 3.89 MIL/MM3 Hemoglobin 9.8 GM/DL Hematocrit 31.6 % Mean Corpuscular Volume 81.2 FL Mean Corpuscular Hemoglobin 25.2 PG Mean Corpuscular Hemoglobin 31.0 % Concent Red Cell Distribution Width 18.7 % Platelet Count 384 TH/MM3 Mean Platelet Volume 8.1 FL Neutrophils (%) (Auto) 92.4 % Lymphocytes (%) (Auto) 5.6 % Monocytes (%) (Auto) 1.5 % Eosinophils (%) (Auto) 0.0 % Basophils (%) (Auto) 0.5 % Neutrophils # (Auto) 15.8 TH/MM3 Lymphocytes # (Auto) 1.0 TH/MM3 Monocytes # (Auto) 0.2 TH/MM3 Eosinophils # (Auto) 0.0 TH/MM3 Basophils # (Auto) 0.1 TH/MM3 CBC Comment DIFF FINAL Differential Comment Sodium Level 141 MEQ/L Potassium Level 3.3 MEQ/L Chloride Level 105 MEQ/L Carbon Dioxide Level 19.5 MEQ/L Anion Gap 17 MEQ/L Blood Urea Nitrogen 9 MG/DL Creatinine 1.03 MG/DL Estimat Glomerular Filtration 66 ML/MIN Rate Random Glucose 119 MG/DL Calcium Level 9.3 MG/DL Total Bilirubin 0.9 MG/DL Aspartate Amino Transf 9 U/L (AST/SGOT) Alanine Aminotransferase 13 U/L (ALT/SGPT) Alkaline Phosphatase 64 U/L Total Protein 8.7 GM/DL Albumin 4.0 GM/DL Mental Status Examination Appearance woman, age appearing, good hygiene, [facility], calm and cooperative and pleasant Speech: Unremarkable Orientation: x3 Memory: Unremarkable Thought Process: Logical Thought Content: Unremarkable Language Patient has an adequate use of language, Fund of Knowledge Adequate for her level of education Attention and Concentration: Good Suicidal Ideation: No Previous Suicide Attempts: No Homicidal Ideation: No Previous Homicide Attempts: No Judgment: WNL Affect: Good Affect if Inappropriate: Flat Mood: Appropriate Motor Activity: Normal gait Assessment & Plan Problem List: (1) Adjustment disorder with mixed anxiety and depressed mood Assessment & Plan: The patient is a 21-year-old woman,without any previous psychiatric history, no previous psychiatric hospitalizations, no previous suicidal attempts, cannabis use disorder, medical history hypertension , with 20 weeks gestation in presenting with altered mental status. Positive marijuana screen. Admitted due to altered mental status, sinus bradycardia, dehydration. Consulted to psychiatry due to anxiety and potential underlying psychiatric condition. On somatic evaluation today patient is calm, cooperative, pleasant. On psychiatric evaluation patient reports increased episodes of anxiety, palpitation, sweating. She reports 1 or 2 of these episodes a day. She also reports mood lability, mood swings, frequent crying spells, poor appetite and insomnia. Denies suicidal and homicidal ideation, denies visual and auditory hallucinations. Symptoms seems to be consistent with adjustment disorder with depressed mood of depression. Panic disorder also had to be consider. But, another possibility is cannabis induced anxiety.Will start patient on Hydroxyzine 25 mg tid fron anxiety and Remeron 15 hs to help with depression, insomnia and also with nausea and appetite. Risk and benefits of medication widely explained to the patient. Supportive psychotherapy, psychoeducation and motivation provided. Consult appreciated. ICD Code: F43.23 Assessment & Plan Estimated LOS: Amor Teran MD Aug 26, 2016 10:15
[2016-08-26] MEDS ORDERED: hydrOXYzine HCL 25 MG TAB PO SCH (12:00)
--- NOTE | 2016-08-26 14:49 | MB ---
cc: SOHAIL MAJANO DATE OF CONSULTATION: 08/26/2016 DATE OF : 1995 HISTORY OF PRESENT ILLNESS Ms. Simon is a 21-year-old female who presented with increased anxiety, diarrhea, nausea and vomiting. She complained of chest pain, shortness of breath, palpitations and dizziness with her anxiety. She was found to have EKG with prolonged QTc at 510, significantly increased compared to her previous EKG. PAST MEDICAL HISTORY 1. Anxiety. 2. Hypertension with proteinuria. 3. . 4. Ear surgery. MEDICATIONS 1. Promethazine. 2. Iron. 3. vitamins. 4. Zofran. ALLERGIES DOXYCYCLINE. SOCIAL HISTORY The patient quit smoking. She does not use alcohol. She does not use drugs. Her family is present. FAMILY HISTORY Significant for heart disease. There is no family history of sudden cardiac . PHYSICAL EXAMINATION VITAL SIGNS: Blood pressure 106/43, pulse 71 and regular. HEENT: 2+ carotid upstrokes. No bruits. LUNGS: Clear. HEART: Regular with no murmur, gallop or rub. ABDOMEN: Soft. No bruits. EXTREMITIES: Without edema. 2+ distal pulses. NEUROLOGIC: Grossly nonfocal. EKG was reviewed and showed sinus bradycardia, short interval, QT 535 and QTC 510. Previous EKG from 12/06/2015 showed sinus rhythm with QT interval 391, QTC of 413. LABORATORY Hemoglobin 9.8. Potassium 3.3, Creatinine 1.0. AST 9, ALT 13. DIAGNOSIS 1. Abnormal EKG with prolonged QTc. 2. . 3. Anxiety with panic attack. DISPOSITION Ms. Simon will be monitored on telemetry with serial EKGs. I recommend to discontinue all medication that could potentially result in prolonged QT interval including Zofran. I will follow her for cardiology during her hospitalization. We need to avoid any medications associated with QT prolongation in the future as well. This was discussed with the patient and her family. MD JOHN Gayle/RANDEE /2:30 PM /2:42 PM CONSTANZA
--- NOTE | 2016-08-26 15:21 | HHI.FPPN ---
Addendum to progress note ADDENDUM Reason for addendum: Additonal documentation Additional information Cardiology evaluated patient and recommending discontinuing Remeron and Vistaril due to QT prolongation side effect. Spoke to Dr. Leo with Psychiatry who stated QT prolongation was lowest with these two medicines but that it was reasonable to stop Vistaril. Recommended Klonopin 0.5 mg BID instead as well as Remeron if okay with Time Study Technician. Dr. Hernandez (Time Study Technician ) recommended avoiding Remeron but was okay with Klonopin. Klonopin ordered as noted above, Remeron + Vistaril + ondansetron discontinued. Ian Wood MD R1 Aug 26, 2016 15:21
[2016-08-26] MEDS: PROMETHAZINE HCL 25 MG TAB PO PRN (18:14)
--- NOTE | 2016-08-26 19:39 | EKG ---
Date Performed: 08/26/2016 Time Performed: 07:45:14 PTAGE: 21 years EKG: SINUS BRADYCARDIA WITH SHORT MN INTERVAL PROLONGED QT INTERVAL ABNORMAL ECG PREVIOUS TRACING : 12/06/2015 14.26 Since previous tracing, no significant change noted DOCTOR: Reinier Mcallister Interpretating Date/Time 08/26/2016 19:38:34
[2016-08-26] MEDS ORDERED: MIRTAZAPINE 15 MG TAB PO SCH (21:00)
[2016-08-26] MEDS: clonazePAM 0.5 MG TAB PO SCH (21:49)
[2016-08-27] MEDS: PROMETHAZINE HCL 25 MG TAB PO PRN (03:29)
[2016-08-27] MEDS: LACTATED RINGER'S 1000 ML INJ 1,000 ML IV SCH (03:30)
--- NOTE | 2016-08-27 07:25 | PD.OB.ANTE ---
Subjective Diagnosis: (1) (2) Nausea and vomiting during (3) Marijuana use, continuous (4) Bradycardia (5) Abnormal EKG (6) Altered mental status Interval History Overnight had 2 episodes of small vomiting. Per nursing report, vomiting was bilious, nonbloody. She also feels tired this morning. Otherwise, she has no concerns. Antepartum ROS: Denies: New complaints Objective Vital Signs Vital Signs Date Time Temp Pulse Resp B/P Pulse Ox O2 Delivery O2 Flow Rate FiO2 08/26/16 23:00 18 08/26/16 22:59 98.7 45 111/56 08/26/16 19:46 98.5 08/26/16 19:46 48 109/51 08/26/16 18:00 98.7 46 126/73 08/26/16 18:00 16 08/26/16 14:00 17 08/26/16 13:00 98.2 16 106/43 08/26/16 13:00 71 106/43 08/26/16 07:20 16 08/26/16 07:20 97.9 08/26/16 07:17 48 115/59 Physical Exam GENERAL: Well-nourished, well-developed patient. CARDIOVASCULAR: Bradycardic with regular rhythm; no murmurs, gallops, or rubs. RESPIRATORY: Breath sounds equal & clear bilaterally. No accessory muscle use. ABDOMEN/GI: Abdomen soft, non-tender. EXTREMITIES: No cyanosis or edema, non-tender, without signs of DVT. Assessment and Plan Problem List: (1) Status: Acute (2) Nausea and vomiting during Status: Acute (3) Marijuana use, continuous Status: Acute (4) Bradycardia Status: Acute (5) Abnormal EKG Status: Acute (6) Altered mental status Status: Resolved Assessment and Plan 21-year-old at 20 weeks gestation in presenting with altered mental status and positive marijuana screen #1 IUP bradycardia Likely secondary to maternal bradycardia - ultrasound normal on 08/26/16 #2 altered mental status Now resolved, likely secondary to marijuana intoxication based on initial exam findings - Psychiatry consulted, appreciate recommendations - Klonopin 0.5 mg BID for anxiety #3 sinus bradycardia and abnormal EKG Heart rate in the 40s, EKG showing sinus bradycardia with prolonged QT interval and shortened IN interval - Cardiology consulted, appreciate recommendations - Avoid QT prolonging agents - Repeat EKG today; if unchanged, safe for discharge with followup if recommended by Cardiology - Monitor clinically #4 dehydration with nausea and vomiting Patient had dehydration on admission, improved with IV fluids - Continue maintenance IV fluids - Phenergan PRN for N/V (least QT-prolonging) - Vitamin B6, 25 mg Q6H scheduled Rodolfo Beckford MD R1 Aug 27, 2016 07:25
[2016-08-27] MEDS ORDERED: PYRIDOXINE HCL 50 MG TAB PO SCH (07:30)
[2016-08-27] MEDS ORDERED: PILL SPLITTER OTHER PRN (07:45)
[2016-08-27 07:54] VITALS: BP 115/61; PULSE 46
[2016-08-27] MEDS: SODIUM CHLORIDE 0.9% FLUSH 10 ML FLUSH IV FLUSH SCH (07:54)
[2016-08-27 08:00] VITALS: RESP 16; TEMP 98.2
[2016-08-27] MEDS: clonazePAM 0.5 MG TAB PO SCH (09:03)
--- NOTE | 2016-08-27 09:42 | HHI.FPPN ---
Addendum to progress note ADDENDUM Reason for addendum: Additonal documentation Additional information Per discussion with Cardiology (Dr Martinez) and Psychiatry (Dr Leo), QT prolongation likely drug-induced. Recommend stopping all QT prolonging agents and assistant counsel pt not to take any remaining zofran at home. - F/u EKG with sinus bradycardia in 40s (no change) but QTc interval reduced to 461 ms (vs 510 yesterday) - Echo 2D 08/27 shows irreversible restrictive LV filling pattern indicative of decreased LV diastolic compliance and increased LA pressure (grade 4 diastolic dysfunction); LVEF 65-70% - Cardiology signed off for discharge - Start zoloft 50 mg PO/daily as per discussion with Cardiology and Psychiatry; pt has tried before but will start at higher dose - Phenergan for nausea - D/C today Ian Wood MD R1 Aug 27, 2016 09:42
[2016-08-27] MEDS ORDERED: SERTRALINE HCL 50 MG TAB PO SCH (11:00)
[2016-08-27 12:26] VITALS: RESP 17; TEMP 98.6
[2016-08-27 12:27] VITALS: BP 105/42; PULSE 52
--- NOTE | 2016-08-27 13:24 | ECHRPT ---
Indication: R/O CARDIOMYOPATHY CONCLUSIONS Normal left ventricular size. Wall thickness is normal. The left ventricular systolic function is hyperdynamic with an estimated ejection fraction in the ra nge of 65- 70%. Doppler parameters are consistent with a irreversible restrictive left ventricular filling pattern i ndicative of decreased left ventricular diastolic compliance and increase left atrial pressure (grade 4 diastolic Structurally normal tricuspid valve. There is trace tricuspid valve regurgitation. Normal estimated pulmonary pressures. BP: 106 / 43 HR: 71 Rhythm: Sinus MEASUREMENTS (Male / Female) Normal Values Technical Quality:Good 2D ECHO LV Diastolic Diameter PLAX 5.1 cm 4.2 - 5.9 / 3.9 - 5.3 cm LV Systolic Diameter PLAX 3.5 cm IVS Diastolic Thickness 0.6 cm 0.6 - 1.0 / 0.6 - 0.9 cm LVPW Diastolic Thickness 0.6 cm 0.6 - 1.0 / 0.6 - 0.9 cm LV Relative Wall Thickness 0.3 LVOT Diameter 1.8 cm Aortic Root Diameter 2.7 cm LA Systolic Diameter LX 3.4 cm 3.0 - 4.0 / 2.7 - 3.8 cm M-MODE AV Cusp Separation MM 1.9 cm DOPPLER AV Peak Velocity 116.0 cm/s AV Peak Gradient 5.4 mmHg AV Mean Gradient 2.0 mmHg AV Velocity Time Integral 27.1 cm LVOT Peak Velocity 117.0 cm/s LVOT Peak Gradient 5.5 mmHg LVOT Velocity Time Integral 27.7 cm LVOT Cardiac Index 3325.6 cm/minm AV Area Cont Eq vti 2.6 cm AV Area Cont Eq pk 2.6 cm Mitral E Point Velocity 143.0 cm/s Mitral A Point Velocity 51.0 cm/s Mitral E to A Ratio 2.8 LV E' Lateral Velocity 22.7 cm/s Mitral E to LV E' Lateral Ratio 6.3 LV E' Septal Velocity 15.1 cm/s Mitral E to LV E' Septal Ratio 9.5 TR Peak Velocity 236.0 cm/s TR Peak Gradient 22.3 mmHg PV Peak Velocity 78.2 cm/s PV Peak Gradient 2.4 mmHg FINDINGS LEFT VENTRICLE Normal left ventricular size. Wall thickness is normal. C The left ventricular systolic function is hyperdynamic with an estimated ejection fraction in the ra nge of 65- 70%. Doppler parameters are consistent with a irreversible restrictive left ventricular filling pattern i ndicative of decreased left ventricular diastolic compliance and increase left atrial pressure (grade 4 diastolic dysfunction). TRICUSPID VALVE Structurally normal tricuspid valve. There is trace tricuspid valve regurgitation. Normal estimated pulmonary pressures. Candice Yuan MD, FACC (Electronically Signed) Final Date:27 August 2016 13:24
[2016-08-27] MEDS ORDERED: CLON.5 PO (14:58)
[2016-08-27] MEDS ORDERED: B-650TAB PO (14:58)
--- NOTE | 2016-08-27 15:02 | HHI.DCPOC ---
Discharge Care Plan Diagnosis: (1) Bradycardia (2) Marijuana use, continuous (3) Adjustment disorder with mixed anxiety and depressed mood (4) Prolonged Q-T interval on ECG (5) Abnormal EKG (6) Nausea and vomiting during Your Health Problems Are: Nausea and/or vomiting Report Symptoms to Your Doctor -Temperature above 100.5 degrees -Unusual pain or calf pain -Increased vaginal bleeding -Painful or difficulty urinating -Feelings of extreme sadness or anxiety after 2 weeks -Suicidal or homicidal ideation -Chest pain and shortness of breath Goals to Promote Your Health * To prevent worsening of your condition and complications * To maintain your health at the optimal level * To contract for your safety Directions to Meet Your Goals Take your medications as prescribed Follow your dietary instruction Follow activity as directed Ensure plenty of rest for recovery Drink fluids for hydration Keep your appointments as scheduled Take your immunizations and boosters as scheduled If your symptoms worsen call your PCP, if no PCP go to Urgent Care Center or Emergency Room Smoking is Dangerous to Your Health. Avoid second hand smoke Call the 24-hour crisis hotline for domestic abuse at Ian Wood MD R1 Aug 27, 2016 15:02
--- NOTE | 2016-08-27 15:49 | PD.CARD.PN ---
Subjective Subjective Remarks No new complaints, in NAD Objective Medications Current Medications Medications (Trade) Dose Ordered Sig/Viviana Route Start Time Stop Time Status Last Admin (Lr 1000 ml Inj) 1,000 ml @ 100 mls/hr Q10H IV 08/26/16 01:13 08/27/16 03:30 (Tylenol) 650 mg Q4H PRN PO 08/26/16 01:15 (NS Flush) 2 ml BID IV FLUSH 08/26/16 09:00 (NS Flush) 2 ml UNSCH PRN IV FLUSH 08/26/16 01:15 (KlonoPIN) 0.5 mg Q12HR PO 08/26/16 21:00 08/27/16 09:03 (Phenergan) 25 mg Q6H PRN PO 08/26/16 18:15 08/27/16 03:29 (Vitamin B6) 25 mg Q6HR PO 08/27/16 07:30 08/27/16 07:54 (Pill Splitter) 1 ea UNSCH PRN OTHER 08/27/16 07:45 (Zoloft) 50 mg DAILY PO 08/27/16 11:00 08/27/16 11:49 Vital Signs / I&O Vital Signs Date Time Temp Pulse Resp B/P Pulse Ox O2 Delivery O2 Flow Rate FiO2 08/27/16 12:27 52 105/42 08/27/16 12:26 98.6 17 08/27/16 08:00 98.2 16 08/27/16 07:54 46 115/61 08/26/16 23:00 18 08/26/16 22:59 98.7 45 111/56 08/26/16 19:46 98.5 08/26/16 19:46 48 109/51 08/26/16 18:00 98.7 46 126/73 08/26/16 18:00 16 Physical Exam GENERAL: In NAD SKIN: Warm and dry. HEAD: Normocephalic. EYES: No scleral icterus. No injection or drainage. NECK: Supple, trachea midline. No JVD or lymphadenopathy. CARDIOVASCULAR: Regular rate and rhythm without murmurs, gallops, or rubs. RESPIRATORY: Breath sounds equal bilaterally. No accessory muscle use. GASTROINTESTINAL: Abdomen soft, non-tender, nondistended. MUSCULOSKELETAL: No cyanosis, or edema. Laboratory Current Medications Medications (Trade) Dose Ordered Sig/Viviana Route Start Time Stop Time Status Last Admin (Lr 1000 ml Inj) 1,000 ml @ 100 mls/hr Q10H IV 08/26/16 01:13 08/27/16 03:30 (Tylenol) 650 mg Q4H PRN PO 08/26/16 01:15 (NS Flush) 2 ml BID IV FLUSH 08/26/16 09:00 (NS Flush) 2 ml UNSCH PRN IV FLUSH 08/26/16 01:15 (KlonoPIN) 0.5 mg Q12HR PO 08/26/16 21:00 08/27/16 09:03 (Phenergan) 25 mg Q6H PRN PO 08/26/16 18:15 08/27/16 03:29 (Vitamin B6) 25 mg Q6HR PO 08/27/16 07:30 08/27/16 07:54 (Pill Splitter) 1 ea UNSCH PRN OTHER 08/27/16 07:45 (Zoloft) 50 mg DAILY PO 08/27/16 11:00 08/27/16 11:49 Assessment and Plan Problem List: (1) Abnormal EKG (2) Prolonged Q-T interval on ECG (3) Assessment and Plan EKG today with normalized QTc off meds. Avoid any meds related to long QT and torsades. Echo w nl LV systolic fx and diastolic dysfx. OK to discharge home. Michelle Hernandez MD Aug 27, 2016 15:49
[2016-08-27] MEDS ORDERED: SERT-132 PO (16:23)
[2016-08-27] MEDS ORDERED: PROM25TA10 PO (16:26)
--- NOTE | 2016-08-27 18:12 | EKG ---
Date Performed: 08/27/2016 Time Performed: 07:35:47 PTAGE: 21 years EKG: SINUS BRADYCARDIA WITH SHORT WY INTERVAL BORDERLINE ECG PREVIOUS TRACING : 08/26/2016 07.45 Compared to the previous tracing, QTc has decreased DOCTOR: Sebastian Loving Interpretating Date/Time 08/27/2016 18:11:19
[2016-08-28] MEDS ORDERED: SERTRALINE HCL 50 MG TAB PO SCH (09:00)
[2016-08-29 09:54] LABS: BATH SALTS (MDPV) UR NEG (NEG); ECSTASY (MDMA) UR NEG (NEG); GABAPENTIN UR NEG (NEG); HEROIN (6-ACETYLMORPHINE) UR NEG (NEG); HYDROMORPHONE U NEG (NEG); K2 SPICE UR NEG (NEG); OBMETHADONE UR NEG (NEG); OXYCODONE (PERCODAN) NEG (NEG); PHENCYCLIDINE URINE NEG (NEG)
== END 2016-08-27 17:28 | disposition home or self-care (01) ==
LOC: HOBED 23:22 → H2EA 08-26 01:17
PROVIDERS: ADMIT Obstetrics & Gynecology; ATTEND Obstetrics & Gynecology
DX: O99.344 Other mental disorders complicating childbirth (principal); F43.23 Adjustment disorder with mixed anxiety and depressed mood; O99.42 Diseases of the circulatory system complicating childbirth; R00.1 Bradycardia, unspecified; I45.81 Long QT syndrome; O21.9 Vomiting of pregnancy, unspecified; O99.324 Drug use complicating childbirth; F12.90 Cannabis use, unspecified, uncomplicated; O99.284 Endocrine, nutritional and metabolic diseases complicating childbirth; E86.0 Dehydration; Z3A.19 19 weeks gestation of pregnancy
CPT/HCPCS: 76805; 76815; 76817; 80053; 80307; 81001; 85025; 93005; 93306; 99285; G0378; G0481; J2405; J7120; Q0169

== ENCOUNTER 2016-08-30 08:06 | Observation (INO) | payer OTHER ==
[~2016-08-30] VITALS: Ht 157.5 cm; Wt 51.7 kg
[~2016-08-30 08:06] MED LIST changes: +B-650TAB PO; +CLON.5 PO; +PROM25TA10 PO; -PROM2SUP RECTAL; +SERT-132 PO; -ZOFR4TAB3 SL
[2016-08-30 08:30] VITALS: BP 136/74; PULSE 53
[2016-08-30] MEDS ORDERED: PROMETHAZINE INJ 25 MG/ML VIAL IM ONE (08:45)
[2016-08-30] MEDS ORDERED: ONDANSETRON HCL 4 MG/2 ML VIAL IV ONE (08:45)
[2016-08-30] MEDS ORDERED: ACETAMINOPHEN 325 MG TAB PO ONE (08:45)
[2016-08-30 09:14] LABS: AUTOMATED NEUTROPHIL # 11.9 TH/MM3 (1.8-7.7); BASOPHIL % 0.2 % (0.0-2.0); EOSINOPHIL % 0.1 % (0.0-4.0); HEMATOCRIT 27.7 % (35.0-46.0); HEMO FLAGS DIFF FINAL; LYMPH % 6.1 % (9.0-44.0); LYMPHOCYTE # 0.8 TH/MM3 (1.0-4.8); MEAN CELL VOLUME 81.1 FL (80.0-100.0); MEAN CORPUSCULAR HEMOGLOBIN 25.8 PG (27.0-34.0); MEAN CORPUSCULAR HGB CONC 31.8 % (32.0-36.0); MONO % 1.4 % (0.0-8.0); NEUT % 92.2 % (16.0-70.0); PLATELET COUNT 351 TH/MM3 (150-450); RED BLOOD COUNT 3.41 MIL/MM3 (4.00-5.30); RED CELL DISTRIBUTION WIDTH 18.3 % (11.6-17.2); WHITE BLOOD COUNT 12.9 TH/MM3 (4.0-11.0)
[2016-08-30 09:35] LABS: BICARBONATE 21.5 MEQ/L (21.0-32.0); POTASSIUM 3.1 MEQ/L (3.5-5.1)
--- NOTE | 2016-08-30 10:25 | EKG ---
Date Performed: 08/30/2016 Time Performed: 10:11:15 PTAGE: 21 years EKG: Sinus rhythm WITH MARKED SINUS ARRHYTHMIA WITH SHORT MS INTERVAL PROLONGED QT INTERVAL ABNORMAL ECG PREVIOUS TRACING : 08/27/2016 07.35 Compared to prior tracing no significant change DOCTOR: Jesse Mayer Interpretating Date/Time 08/30/2016 10:25:01
[2016-08-30] MEDS ORDERED: LACTATED RINGER'S 1000 ML INJ 1,000 ML IV ONE (10:30)
[2016-08-30] MEDS ORDERED: POTASSIUM CHLORIDE INJ 40 MEQ in LACTATED RINGER'S 1000 ML INJ 1,000 ML IV SCH (10:30)
--- NOTE | 2016-08-30 10:31 | PD ---
HPI Chief Complaint nausea, vomiting and abdominal pain Date Seen: Aug 30, 2016 Time Seen: 08:45 (Ian Wood MD) Travel History International Travel<30 Days: No Contact w/Intl Traveler<30Days: No Known Affected Area: No (Ian Wood MD) History of Present Illness HPI 21 YO at 20/4 weeks who recently discharged here with bradycardia and prolonged QTc interval with nausea and vomiting presents with nausea and reported emesis x6 over the last 24 hours and diffuse abdominal pain. Reports CP and some dizziness upon standing. Denies fever, drug use, SOB, diarrhea, DVT calf pain. Para: 1 : 3 Miscarriage: 1 (Ian Wood MD) History Past Medical History Medical History: Denies Significant Hx (Ian Wood MD) Obstetric History Obstetric History first a spontaneous miscarriage then at term for 2nd ( Ian Wood MD) Past Surgical History Surgical History: No Previous Surgery (Ian Wood MD) Family History Family History: Negative (Ian Wood MD) Social History Alcohol Use: No Tobacco Use: No Substance Abuse: Yes (positive UDS for cannabinoids on ED visit 08/26/16) ( Ian Wood MD) Allergies-Medications (Allergen,Severity, Reaction): Coded Allergies: Doxycycline (Verified Adverse Reaction, Severe, VOMITING, 08/29/16) Home Meds Active Scripts Promethazine (Phenergan)25 Mg [id number] Mg PO Q6H PRN (NAUSEA OR VOMITING) #120 Prov:Ian Wood MD 08/27/16 Sertraline 50 Mg Tab50 Mg PO DAILY PRN (depression/anxiety) #30 TAB Ref 0 Prov:Ian Wood MD 08/27/16 Pyridoxine (B-6)50 Mg Tab25 Mg PO Q6HR #120 TAB Prov:Ian Wood MD 08/27/16 Clonazepam (Klonopin)0.5 Mg Tab0.5 Mg PO Q12HR #60 TAB Prov:Ian Wood MD 08/27/16 W/O Vit A W/ Fe Carbo Pack (Citranatal 90 Dha Pack)90-1 & 300 Mg Pack1 Ea PO DAILY #60 PACK Ref 11 30 day supply. Prov:Chappuis,Anai B. [employer]ER 06/18/16 Discontinued Reported Medications Ondansetron Odt (Zofran Odt)4 Mg Tab4 Mg SL Q6HR PRN (Nausea/Vomiting) #30 TAB Ref 0 07/13/16 Discontinued Scripts Promethazine Supp (Phenergan Supp)12.5 Mg Supp12.5 Mg RECTAL Q6H PRN (NAUSEA OR VOMITING) #8 SUPP Ref 0 Prov:Barney Mullen MD 07/13/16 Review of Systems General / Constitutional: No: Fever, Weight Gain, Weight Loss, Chills, Other Eyes: No: Diploplia, Blurred Vision, Visual changes, Pain, Photophobia, Other HENT: Lightheadedness Cardiovascular: Chest Pain or Discomfort, No: Irregular Rhythm, Palpitations, Tachycardia, Syncope, Varicosities, Edema, Cyanosis, Other Respiratory: No: Cough, Short of Breath, Wheezing, Other Gastrointestinal: Nausea, Vomiting, Abdominal Pain Genitourinary: No: Urgency, Frequency, Dysuria, Nocturia, Hematuria, Decreased Urinary Output, Oliguria, Hesitancy, Dribbling, Incontinence, Pelvic Pain, Dyspareunia, Discharge, Menorrhagia, Vaginal Bleeding, Other Musculoskeletal: No: Limited ROM, Weakness, Cramping, Edema, Pain, Other Skin: No Rash, No Itching, No Dryness, No Lumps, No Change in Pigmentation, No Change in Nails, No Alopecia, No Lesions, No Breast Lumps, No Breast Tenderness , No Breast Swelling, No Other Neurologic: No: Weakness, Dizziness, Syncope, Focal Abnormalities, Coordination Problem, Headache, Slurred Speech, Seizures, Other Psychiatric: No: Anxiety, Depression, Suicidal Ideations, Disorder of Thought, Mood Disorder, Substance Abuse, Homicidal Ideation, Other (Ian Wood MD R1) Physical Exam Narrative GENERAL: Ill-looking pt curled up in bed. SKIN: Warm and dry with no tenting HEAD: Normocephalic and atraumatic. EYES: No scleral icterus. No injection or drainage. ENT: No nasal drainage noted. Mucous membranes pink. Airway patent. NECK: Supple, trachea midline. CARDIOVASCULAR: Regular rate and rhythm without murmurs, gallops, or rubs. Cap refill 3 secs RESPIRATORY: Breath sounds equal bilaterally w/no increased WOB. No accessory muscle use. ABDOMEN/GI: Abdomen soft, diffusely tender in all quadrants, hypoactive bowel sounds present, no rebound, no guarding Gravid to [20] weeks size Fundal Height: [20] GENITOURINARY: deferred FHT's: at baseline 120s EXTREMITIES: No cyanosis or edema. BACK: Nontender without obvious deformity. No CVA tenderness. NEUROLOGICAL/PSYCH: Awake but anxious. Motor and sensory grossly within normal limits. Normal speech. (Ian Wood MD R1) Data Data Orders Vital Signs (Adult) .ON ADMISSION (08/30/16 08:36) ^ Labor Status (08/30/16 08:36) ^ Hydration (08/30/16 08:36) Basic Metabolic Panel (Bmp) (08/30/16 08:36) Acetaminophen (Tylenol) (08/30/16 08:45) Ondansetron Inj (Zofran Inj) (08/30/16 08:45) Complete Blood Count With Diff (08/30/16 08:36) Promethazine Inj (Phenergan Inj) (08/30/16 08:45) Labs Laboratory Tests Test 08/30/16 08:49 White Blood Count 12.9 Red Blood Count 3.41 Hemoglobin 8.8 Hematocrit 27.7 Mean Corpuscular Volume 81.1 Mean Corpuscular Hemoglobin 25.8 Mean Corpuscular Hemoglobin 31.8 Concent Red Cell Distribution Width 18.3 Platelet Count 351 Mean Platelet Volume 7.4 Neutrophils (%) (Auto) 92.2 Lymphocytes (%) (Auto) 6.1 Monocytes (%) (Auto) 1.4 Eosinophils (%) (Auto) 0.1 Basophils (%) (Auto) 0.2 Neutrophils # (Auto) 11.9 Lymphocytes # (Auto) 0.8 Monocytes # (Auto) 0.2 Eosinophils # (Auto) 0.0 Basophils # (Auto) 0.0 CBC Comment DIFF FINAL Differential Comment Sodium Level 138 Potassium Level 3.1 Chloride Level 104 Carbon Dioxide Level 21.5 Anion Gap 13 Blood Urea Nitrogen 6 Creatinine 0.58 Estimat Glomerular Filtration 129 Rate Random Glucose 106 Calcium Level 8.3 (Ian Wood MD R1) MDM Narrative Course / MDM 21 YO female with nausea and vomiting of , diffuse abdominal pain , what appears to be baseline bradycardia and incidental CPs. Reassuring FHTs in 120s. 1. IUP - LR 1L bolus - Hemodynamically stable with H/H at 8.8/ - Electrolytes grossly normal - UA - FHTs in 120s 2. Bradycardia and CPs - Bradycardia appears to be her baseline - EKG unchanged from last visit--bradycardia at 57 bpm vs 40s last visit; QTc 481 ms - LR bolus as above but doesn't appear to be dry/dehydrated - Added LR 500 cc plus K+ due to hypokalemia at 3.1 - Cards consult at last visit and following recs of avoiding QTc prolonging meds (zofran) 3. Abdominal pain w/nausea and vomiting - Tylenol - Protonix 40 mg IV once - Vitamin B6 20 mg IV - Doxylamine succinate 4. Hx of substance abuse - UDS positive at visit 08/26/16 for Cannbinoids - Denies use since last d/c plan dw Willie Genao and Shakeel (Ian Wood MD R1) Diagnosis Diagnosis: Primary Impression: Nausea and vomiting during Collaborating MD Comments Agree with admission for observation of symptoms and GI consultation. (Sheridan Genao MD) Ian Wood MD R1 Aug 30, 2016 10:30 Sheridan Genao MD Aug 30, 2016 17:17
--- NOTE | 2016-08-30 11:26 | HHI.HP ---
History & Physical H&P HPI Chief Complaint nausea, vomiting and abdominal pain Date Seen: Aug 30, 2016 Time Seen: 08:45 Travel History International Travel<30 Days: No Contact w/Intl Traveler<30Days: No Known Affected Area: No History of Present Illness HPI 21 YO at 20/4 weeks who recently discharged here with bradycardia and prolonged QTc interval with nausea and vomiting presents with nausea and reported emesis x6 over the last 24 hours and diffuse abdominal pain. Reports CP and some dizziness upon standing. Denies fever, drug use, SOB, diarrhea, DVT calf pain. Para: 1 : 3 Miscarriage: 1 History (Limited) History Past Medical History Medical History: Denies Significant Hx Obstetric History Obstetric History first a spontaneous miscarriage then at term for 2nd Past Surgical History Surgical History: No Previous Surgery Family History Family History: Negative Social History Alcohol Use: No Tobacco Use: No Substance Abuse: Yes (positive UDS for cannabinoids on ED visit 08/26/16) Allergies-Medications Allergies-Medications (Allergen,Severity, Reaction): Coded Allergies: Doxycycline (Verified Adverse Reaction, Severe, VOMITING, 08/29/16) Home Meds Active Scripts Promethazine (Phenergan)25 Mg [id number] Mg PO Q6H PRN (NAUSEA OR VOMITING) #120 Prov:Ian Wood MD R1 08/27/16 Sertraline 50 Mg Tab50 Mg PO DAILY PRN (depression/anxiety) #30 TAB Ref 0 Prov:Ian Wood MD R1 08/27/16 Pyridoxine (B-6)50 Mg Tab25 Mg PO Q6HR #120 TAB Prov:Ian Wood MD R1 08/27/16 Clonazepam (Klonopin)0.5 Mg Tab0.5 Mg PO Q12HR #60 TAB Prov:Ian Wood MD R1 08/27/16 W/O Vit A W/ Fe Carbo Pack (Citranatal 90 Dha Pack)90-1 & 300 Mg Pack1 Ea PO DAILY #60 PACK Ref 11 30 day supply. Prov:Anai Holley 06/18/16 Discontinued Reported Medications Ondansetron Odt (Zofran Odt)4 Mg Tab4 Mg SL Q6HR PRN (Nausea/Vomiting) #30 TAB Ref 0 07/13/16 Discontinued Scripts Promethazine Supp (Phenergan Supp)12.5 Mg Supp12.5 Mg RECTAL Q6H PRN (NAUSEA OR VOMITING) #8 SUPP Ref 0 Prov:Barney Mullen MD 07/13/16 ROS Review of Systems General / Constitutional: No: Fever, Weight Gain, Weight Loss, Chills, Other Eyes: No: Diploplia, Blurred Vision, Visual changes, Pain, Photophobia, Other HENT: Lightheadedness Cardiovascular: Chest Pain or Discomfort, No: Irregular Rhythm, Palpitations, Tachycardia, Syncope, Varicosities, Edema, Cyanosis, Other Respiratory: No: Cough, Short of Breath, Wheezing, Other Gastrointestinal: Nausea, Vomiting, Abdominal Pain Genitourinary: No: Urgency, Frequency, Dysuria, Nocturia, Hematuria, Decreased Urinary Output, Oliguria, Hesitancy, Dribbling, Incontinence, Pelvic Pain, Dyspareunia, Discharge, Menorrhagia, Vaginal Bleeding, Other Musculoskeletal: No: Limited ROM, Weakness, Cramping, Edema, Pain, Other Skin: No Rash, No Itching, No Dryness, No Lumps, No Change in Pigmentation, No Change in Nails, No Alopecia, No Lesions, No Breast Lumps, No Breast Tenderness , No Breast Swelling, No Other Neurologic: No: Weakness, Dizziness, Syncope, Focal Abnormalities, Coordination Problem, Headache, Slurred Speech, Seizures, Other Psychiatric: No: Anxiety, Depression, Suicidal Ideations, Disorder of Thought, Mood Disorder, Substance Abuse, Homicidal Ideation, Other Physical Exam Physical Exam Narrative GENERAL: Ill-looking pt curled up in bed. SKIN: Warm and dry with no tenting HEAD: Normocephalic and atraumatic. EYES: No scleral icterus. No injection or drainage. ENT: No nasal drainage noted. Mucous membranes pink. Airway patent. NECK: Supple, trachea midline. CARDIOVASCULAR: Regular rate and rhythm without murmurs, gallops, or rubs. Cap refill 3 secs RESPIRATORY: Breath sounds equal bilaterally w/no increased WOB. No accessory muscle use. ABDOMEN/GI: Abdomen soft, diffusely tender in all quadrants, hypoactive bowel sounds present, no rebound, no guarding Gravid to [20] weeks size Fundal Height: [20] GENITOURINARY: deferred FHT's: at baseline 120s EXTREMITIES: No cyanosis or edema. BACK: Nontender without obvious deformity. No CVA tenderness. NEUROLOGICAL/PSYCH: Awake but anxious. Motor and sensory grossly within normal limits. Normal speech. Data Data Data Orders Vital Signs (Adult) .ON ADMISSION (08/30/16 08:36) ^ Labor Status (08/30/16 08:36) ^ Hydration (08/30/16 08:36) Basic Metabolic Panel (Bmp) (08/30/16 08:36) Acetaminophen (Tylenol) (08/30/16 08:45) Ondansetron Inj (Zofran Inj) (08/30/16 08:45) Complete Blood Count With Diff (08/30/16 08:36) Promethazine Inj (Phenergan Inj) (08/30/16 08:45) Labs Laboratory Tests Test 08/30/16 08:49 White Blood Count 12.9 Red Blood Count 3.41 Hemoglobin 8.8 Hematocrit 27.7 Mean Corpuscular Volume 81.1 Mean Corpuscular Hemoglobin 25.8 Mean Corpuscular Hemoglobin 31.8 Concent Red Cell Distribution Width 18.3 Platelet Count 351 Mean Platelet Volume 7.4 Neutrophils (%) (Auto) 92.2 Lymphocytes (%) (Auto) 6.1 Monocytes (%) (Auto) 1.4 Eosinophils (%) (Auto) 0.1 Basophils (%) (Auto) 0.2 Neutrophils # (Auto) 11.9 Lymphocytes # (Auto) 0.8 Monocytes # (Auto) 0.2 Eosinophils # (Auto) 0.0 Basophils # (Auto) 0.0 CBC Comment DIFF FINAL Differential Comment Sodium Level 138 Potassium Level 3.1 Chloride Level 104 Carbon Dioxide Level 21.5 Anion Gap 13 Blood Urea Nitrogen 6 Creatinine 0.58 Estimat Glomerular Filtration 129 Rate Random Glucose 106 Calcium Level 8.3 MDM MDM Narrative Course / MDM 21 YO female with nausea and vomiting of , diffuse abdominal pain , what appears to be baseline bradycardia and incidental CPs. Reassuring FHTs in 120s. 1. IUP - LR 1L bolus - Hemodynamically stable with H/H at 8.8/ - Electrolytes grossly normal - UA - FHTs in 120s 2. Bradycardia and CPs - Bradycardia appears to be her baseline - EKG unchanged from last visit--bradycardia at 57 bpm vs 40s last visit; QTc 481 ms - LR bolus as above but doesn't appear to be dry/dehydrated - Cards consult at last visit and following recs of avoiding QTc prolonging meds (zofran) 3. Abdominal pain w/nausea and vomiting (non-bilious emesis x1 in ED room) - Tylenol - Protonix 40 mg IV once - Vitamin B6 20 mg IV - Doxylamine succinate not on formulary - GI being consulted for Hgb 9.8-->8.8 since last visit, GI pain, and N/V 4. Anemia - Hbg 8.8 - Iron Polysaccharide 150 mg BID PO 4. Hypokalemia 3.1 - Added LR 500 cc plus K+ due to hypokalemia at 3.1 5. Hx of substance abuse - UDS positive at visit 08/26/16 for Cannbinoids - Denies use since last d/c plan dw Willie Genao and Ian Coello MD R1 Aug 30, 2016 11:26
[2016-08-30] MEDS ORDERED: PROMETHAZINE INJ 25 MG/ML VIAL IM PRN (11:30)
[2016-08-30] MEDS ORDERED: SODIUM CHLORIDE 0.9% FLUSH 10 ML FLUSH IV FLUSH PRN (11:30)
[2016-08-30] MEDS ORDERED: ACETAMINOPHEN 325 MG TAB PO PRN (11:30)
[2016-08-30] MEDS: DOCUSATE SODIUM 100 MG CAP PO SCH (12:30)
[2016-08-30] MEDS ORDERED: PANTOPRAZOLE SODIUM 40 MG VIAL IV PUSH ONE (12:30)
[2016-08-30] MEDS ORDERED: PYRIDOXINE HCL 100 MG/ML VIAL IV ONE (13:00)
[2016-08-30] MEDS: LACTATED RINGER S IV SCH (14:19)
[2016-08-30] MEDS: POTASSIUM CHLORIDE IV SCH (14:19)
[2016-08-30 15:37] LABS: BLOOD, URINE NEG (NEG); COMMENT (UR) CULT NOT INDICATED; CULTURE IF INDICATED CULT NOT INDICATED; GLUCOSE,URINE NEG (NEG); KETONE, URINE 10 mg/dL (NEG); NITRITE,URINE NEG (NEG); PH, URINE 7.5 (5.0-8.5); SQUAMOUS EPITHELIAL CELL URINE 6 /hpf (0-5); URINE COLOR LIGHT-YELLOW (YELLW/STRAW)
--- NOTE | 2016-08-30 16:32 | PD.CONS ---
HPI History of Present Illness This is a 21 year old female 20 weeks who presented with intractable n/ v, abd pain, and diarrhea. She has had the n/v and abd pain since the start of her . The pain she indicates is from her neck down to lower abdomen. Hot showers help the pain. No blood in emesis. She has had diarrhea for the last year, since before . Diarrhea is watery and seems to be after she eats. She admits black stool on occasion and cannot further qualify. No bright red blood in stool. Denies NSAID use. She admits nausea in previous but not this severe. She uses marijuana occasionally. never had EGD or colonoscopy. Says she has always been anemic. (Leticia Elizabeth) PFSH Past Medical History HTN, anemia Past Surgical History section (Leticia Elizabeth) Coded Allergies: Doxycycline (Verified Adverse Reaction, Severe, VOMITING, 08/29/16) Family History none Social History denies ETOH, tobacco smokes marijuana occasionally (Leticia Elizabeth) Review of Systems Constitutional: DENIES: Fever Respiratory: DENIES: Hemoptysis Gastrointestinal: COMPLAINS OF: Abdominal pain, Black stools, Diarrhea, Nausea , Vomiting, DENIES: Bloody stools, Constipation, Hematemesis Genitourinary: DENIES: Hematuria Musculoskeletal: DENIES: Joint Swelling Neurologic: DENIES: Abnormal gait Psychiatric: DENIES: Confusion (Leticia Elizabeth) GI Exam Laboratory Test 08/30/16 08/30/16 08:49 14:30 White Blood Count 12.9 TH/MM3 Red Blood Count 3.41 MIL/MM3 Hemoglobin 8.8 GM/DL Hematocrit 27.7 % Mean Corpuscular Volume 81.1 FL Mean Corpuscular Hemoglobin 25.8 PG Mean Corpuscular Hemoglobin 31.8 % Concent Red Cell Distribution Width 18.3 % Platelet Count 351 TH/MM3 Mean Platelet Volume 7.4 FL Neutrophils (%) (Auto) 92.2 % Lymphocytes (%) (Auto) 6.1 % Monocytes (%) (Auto) 1.4 % Eosinophils (%) (Auto) 0.1 % Basophils (%) (Auto) 0.2 % Neutrophils # (Auto) 11.9 TH/MM3 Lymphocytes # (Auto) 0.8 TH/MM3 Monocytes # (Auto) 0.2 TH/MM3 Eosinophils # (Auto) 0.0 TH/MM3 Basophils # (Auto) 0.0 TH/MM3 CBC Comment DIFF FINAL Differential Comment Sodium Level 138 MEQ/L Potassium Level 3.1 MEQ/L Chloride Level 104 MEQ/L Carbon Dioxide Level 21.5 MEQ/L Anion Gap 13 MEQ/L Blood Urea Nitrogen 6 MG/DL Creatinine 0.58 MG/DL Estimat Glomerular Filtration 129 ML/MIN Rate Random Glucose 106 MG/DL Calcium Level 8.3 MG/DL Urine Color LIGHT-YELLOW Urine Turbidity HAZY Urine pH 7.5 Urine Specific [place] 1.010 Urine Protein NEG mg/dL Urine Glucose (UA) NEG mg/dL Urine Ketones 10 mg/dL Urine Occult Blood NEG Urine Nitrite NEG Urine Bilirubin NEG Urine Urobilinogen LESS THAN 2.0 MG/DL Urine Leukocyte Esterase LARGE Urine WBC 1 /hpf Urine Squamous Epithelial 6 /hpf Cells Microscopic Urinalysis Comment CULT NOT INDICATED Physical Examination HEENT: PERRL; normocephalic; atraumatic; no jaundice. CHEST: CTA CARDIAC: bradycardic ABDOMEN: firmness lower abd/pelvis, nondistended, diffuse TTP; no hepatosplenomegaly; bowel sounds are present in all four quadrants. EXTREMITIES: No clubbing, cyanosis, or edema. SKIN: Normal; no rash; no jaundice. SODA JERKER: No focal deficits; alert and oriented times three. (Leticia Elizabeth) Assessment and Plan Plan ASSESSMENT - n/v abd pain - could be hyperemesis gravidarum. will do US - diarrhea - , will do stool cx to r/o infectious cause - anemia - 8.8, pt reports she has always been anemic. will do hemoccult PLAN - phenergan - stool cx - hemoccult - US ABD - further recommendations to follow Pt seen by myself and Dr Simon and this note is written on her behalf (Leticia Elizabeth) Physician Comments seen, examined agree with above celiac panel sed rate (Mary Simon MD) Leticia Elizabeth Aug 30, 2016 16:32 Mary Simon MD Aug 30, 2016 21:26
[2016-08-30] MEDS: PYRIDOXINE HCL 100 MG/ML VIAL IV SCH (18:00)
[2016-08-30 19:51] VITALS: BP 131/60; PULSE 50; RESP 18; TEMP 98.3
[2016-08-30] MEDS: POLYSACCHARIDE IRON COMPLEX 150 MG CAP PO SCH (20:54)
[2016-08-30] MEDS: SODIUM CHLORIDE 0.9% FLUSH 10 ML FLUSH IV FLUSH SCH (21:00)
--- NOTE | 2016-08-30 23:52 | RADRPT ---
EXAM DATE/TIME: 08/30/2016 22:40 [facility] COMPARISON: No previous studies available for comparison. INDICATIONS : Abdominal pain. MEDICAL HISTORY : Hypertension. Glasses. Sleep apnea. Abdominal pain. Nausea. Vomiting. SURGICAL HISTORY : section. ENCOUNTER: Initial ACUITY: 1 day PAIN SCORE: 2/10 LOCATION: Abdomen. MEASUREMENTS: LIVER: 13.3 cm length COMMON DUCT: 2 mm RIGHT KIDNEY: 10.4 x 3.8 x 4.1 cm LEFT KIDNEY: 10.4 x 4.3 x 5.2 cm SPLEEN: 9.1 cm length AORTA: 1.9cm maximal FINDINGS: LIVER: Normal echotexture without focal lesion or ductal dilatation. COMMON DUCT: No intraluminal mass or stone visualized. GALLBLADDER: Contains no stones, demonstrates no wall thickening or pericholecystic fluid. PANCREAS: The visualized portions are within normal limits. RIGHT KIDNEY: No hydronephrosis, stone or mass. LEFT KIDNEY: No hydronephrosis, stone or mass. SPLEEN: No focal lesion. AORTA: Non aneurysmal. IVC: Within normal limits. CONCLUSION: Normal examination. Steve Magaña MD on August 30, 2016 at 23:50 Board Certified Radiologist. This report was verified electronically.
[2016-08-31] VITALS (13 sets, daily range): BP systolic 111–123; BP diastolic 46–72; PULSE 49–53; RESP 16–18; TEMP 98–98.4
[2016-08-31] MEDS: PYRIDOXINE HCL 100 MG/ML VIAL IV SCH ×4 (06:00→18:53)
[2016-08-31] MEDS: SODIUM CHLORIDE 0.9% FLUSH 10 ML FLUSH IV FLUSH SCH ×2 (07:30→21:00)
[2016-08-31] MEDS: POLYSACCHARIDE IRON COMPLEX 150 MG CAP PO SCH ×2 (08:35→21:05)
[2016-08-31] MEDS: DOCUSATE SODIUM 100 MG CAP PO SCH (08:35)
[2016-08-31] MEDS: LACTATED RINGER'S 1000 ML INJ 1,000 ML IV SCH ×2 (12:41→18:45)
[2016-08-31 13:07] LABS: AMPHETAMINE, URINE NEG (NEG); BARBITURATES, URINE NEG (NEG); COCAINE, URINE NEG (NEG)
--- NOTE | 2016-08-31 14:20 | PD.OB.ANTE ---
Subjective Interval History Patient seen and examined this morning. Patient reports she is feeling better after waking up this morning. A couple episodes of emesis overnight, but none this morning. Denies any pain this morning. No headaches, changes in vision. No back pain. No chest pain, shortness of breath, dysuria. Antepartum ROS: Denies: New complaints, Loss of fluid, Vaginal bleeding, movement normal, Contractions (Rocael Vasquez MD R1) Objective Vital Signs Vital Signs Date Time Temp Pulse Resp B/P Pulse Ox O2 Delivery O2 Flow Rate FiO2 08/31/16 12:47 98.4 17 08/31/16 12:41 49 122/61 08/31/16 12:00 16 08/31/16 11:00 17 08/31/16 10:00 16 08/31/16 08:40 98.2 16 08/31/16 08:33 50 111/46 08/30/16 19:51 50 131/60 08/30/16 19:51 98.3 18 Lab & Micro Results Test 08/30/16 08/30/16 08/30/16 08/31/16 14:30 15:17 21:09 04:56 Urine Color LIGHT-YELLOW Urine Turbidity HAZY Urine pH 7.5 Urine Specific [place] 1.010 Urine Protein NEG mg/dL Urine Glucose (UA) NEG mg/dL Urine Ketones 10 mg/dL Urine Occult Blood NEG Urine Nitrite NEG Urine Bilirubin NEG Urine Urobilinogen LESS THAN 2.0 MG/DL Urine Leukocyte Esterase LARGE Urine WBC 1 /hpf Urine Squamous Epithelial 6 /hpf Cells Microscopic Urinalysis Comment CULT NOT INDICATED Urine Opiates Screen NEG Urine Barbiturates Screen NEG Urine Amphetamines Screen NEG Urine Benzodiazepines Screen NEG Urine Cocaine Screen NEG Urine Cannabinoids Screen POS Potassium Level 3.6 MEQ/L Erythrocyte Sedimentation Rate 35 mm/hr Physical Exam GENERAL: Well-nourished, well-developed patient. CARDIOVASCULAR: Regular rate and rhythm without murmurs, gallops, or rubs. RESPIRATORY: Breath sounds equal bilaterally. No accessory muscle use. ABDOMEN/GI: Abdomen soft, non-tender. Gravid to 20 weeks. EXTREMITIES: No cyanosis or edema, non-tender, without signs of DVT. (Rocael Vasquez MD R1) Assessment and Plan Assessment and Plan 21 YO female with nausea and vomiting of , diffuse abdominal pain , what appears to be baseline bradycardia and incidental CPs. Reassuring FHTs in 120s. Pt improving today. Decreased nausea/vomiting. Await GI recs 1. IUP - FHTs in 120s - No VB, LOF, CTX - Continue to monitor 2. Hx of bradycardia - Cards consult at last visit and following recs of avoiding QTc prolonging meds (zofran) 3. Abdominal pain w/nausea and vomiting - Ultrasound of abdomen, wnl - LR @ 100mls/hr - Tylenol - Protonix 40 mg IV once - Vitamin B6 20 mg IV - Doxylamine succinate not on formulary - GI being consulted-appreciate recs -Celiac panel, stool cx pending 4. Anemia - Hbg 8.8 - Iron Polysaccharide 150 mg BID PO 5. Hx of substance abuse - UDS positive for cannabinoids - Denies use since last d/c (Rocael Vasquez MD R1) Collaborating MD Comments Agree with inpatient care plans (Sheridan Genao MD) Rocael Vasquez MD R1 Aug 31, 2016 14:20 Sheridan Genao MD Sep 08, 2016 09:48
--- NOTE | 2016-08-31 18:53 | HHI.GIFU ---
Subjective Remarks Resting in bed. States she is hungry and is looking forwards to eating the meatloaf and mashed potatoes for dinner. She reports that she has vomited twice today- bilious material. the nurse reports that she has not seen any vomiting- did see her dry heave earlier. No hematemesis. Denies abdominal pain other than "hunger pain." No further diarrhea. (AichaAna ) Objective Vitals I&O Vital Signs Date Time Temp Pulse Resp B/P Pulse Ox O2 Delivery O2 Flow Rate FiO2 08/31/16 12:47 98.4 17 08/31/16 12:41 49 122/61 08/31/16 12:00 16 08/31/16 11:00 17 08/31/16 10:00 16 08/31/16 08:40 98.2 16 08/31/16 08:33 50 111/46 08/30/16 19:51 50 131/60 08/30/16 19:51 98.3 18 Laboratory Laboratory Tests Test 08/30/16 08/31/16 21:09 04:56 Potassium Level 3.6 Erythrocyte Sedimentation Rate 35 Imaging Last Impressions Abdomen Ultrasound 08/30/16 0000 Signed Impressions: Service Date/Time: Tuesday, August 30, 2016 22:40 - CONCLUSION: Normal examination. Steve Magaña MD Physical Exam HEENT: Normocephalic; atraumatic; no jaundice. CHEST: CTA CARDIAC: RRR ABDOMEN: Soft, nondistended, nontender; no hepatosplenomegaly; bowel sounds are present in all four quadrants. EXTREMITIES: No clubbing, cyanosis, or edema. SKIN: Normal; no rash; no jaundice. DIVIDEND CLERK: No focal deficits; alert and oriented times three. (AichaAna) Assessment and Plan Plan ASSESSMENT - N/V, Abdominal pain in patient who is 20 weeks . Abdomen Ultrasound ()-----> Normal examination. No labs from today. Will get CBC, CMP, Lipase. Add Ranitidine. Pyridoxine. Promethazine prn. Pt reports that she vomited x 2 today. Nurse did not witness. Avoiding Zofran secondary to prolonged QT interval. Denies pain. Looking forward to eating mashed potatoes and meat loaf. - Diarrhea. No further episdoes. - Anemia. HH 8.8/27.7 yesterday, no labs for today. - IUP, 20 weeks per OB PLAN - KUMAR - Ranitidine - Pyridoxine - Phenergan prn - CBC, CMP, Lipase today - If patient tolerates diet and no significant drop in hgb/labs stable, okay to d/c home from GI standpoint - FU MYCHAL 2 weeks - No Marijuana - Avoid Zofran secondary to prolonged QT interval - Pt seen and examined by Dr. Simon and myself and this note is written on her behalf (Ana Holcomb) Ana Holcomb Aug 31, 2016 18:53 Mary Simon MD Sep 01, 2016 07:50
[2016-08-31 20:49] LABS: AUTOMATED NEUTROPHIL # 9.2 TH/MM3 (1.8-7.7); BASOPHIL % 0.2 % (0.0-2.0); EOSINOPHIL # 0.1 TH/MM3 (0-0.4); EOSINOPHIL % 0.6 % (0.0-4.0); HEMATOCRIT 24.5 % (35.0-46.0); HEMO FLAGS DIFF FINAL; LYMPHOCYTE # 2.4 TH/MM3 (1.0-4.8); MEAN CELL VOLUME 80.4 FL (80.0-100.0); MEAN CORPUSCULAR HEMOGLOBIN 25.6 PG (27.0-34.0); MEAN CORPUSCULAR HGB CONC 31.8 % (32.0-36.0); MONO % 3.4 % (0.0-8.0); NEUT % 75.8 % (16.0-70.0); PLATELET COUNT 268 TH/MM3 (150-450); RED BLOOD COUNT 3.05 MIL/MM3 (4.00-5.30); RED CELL DISTRIBUTION WIDTH 18.6 % (11.6-17.2); WHITE BLOOD COUNT 12.2 TH/MM3 (4.0-11.0)
[2016-08-31] MEDS: FAMOTIDINE 20 MG TAB PO SCH (21:00)
[2016-08-31 21:08] LABS: ANION GAP 7 MEQ/L (5-15); AST (GOT) 9 U/L (15-37); BICARBONATE 24.6 MEQ/L (21.0-32.0); BLOOD UREA NITROGEN 4 MG/DL (7-18); CHLORIDE 104 MEQ/L (98-107); GLOMERULAR FILTRATION RATE 153 ML/MIN (>89); SODIUM (NA) 136 MEQ/L (136-145)
[2016-08-31 21:09] LABS: ALT (GPT) 19 U/L (10-53)
[2016-08-31 21:12] LABS: ALKALINE PHOSPHATASE 43 U/L (45-117); TOTAL BILIRUBIN ADULT 0.8 MG/DL (0.2-1.0)
[2016-08-31] MEDS: POTASSIUM CHLORIDE IV SCH (22:00)
[2016-08-31] MEDS: LACTATED RINGER S IV SCH (22:00)
[2016-09-01] MEDS: POTASSIUM CHLORIDE IV SCH (02:42)
[2016-09-01] MEDS: LACTATED RINGER S IV SCH (02:42)
[2016-09-01 05:56] LABS: AUTOMATED NEUTROPHIL # 8.5 TH/MM3 (1.8-7.7); BASOPHIL % 0.2 % (0.0-2.0); EOSINOPHIL # 0.1 TH/MM3 (0-0.4); EOSINOPHIL % 0.5 % (0.0-4.0); HEMATOCRIT 24.4 % (35.0-46.0); HEMO FLAGS DIFF FINAL; LYMPH % 18.7 % (9.0-44.0); LYMPHOCYTE # 2.1 TH/MM3 (1.0-4.8); MEAN CELL VOLUME 80.5 FL (80.0-100.0); MEAN CORPUSCULAR HEMOGLOBIN 26.4 PG (27.0-34.0); MEAN CORPUSCULAR HGB CONC 32.8 % (32.0-36.0); MONO % 4.7 % (0.0-8.0); NEUT % 75.9 % (16.0-70.0); PLATELET COUNT 277 TH/MM3 (150-450); RED BLOOD COUNT 3.04 MIL/MM3 (4.00-5.30); RED CELL DISTRIBUTION WIDTH 17.9 % (11.6-17.2); WHITE BLOOD COUNT 11.2 TH/MM3 (4.0-11.0)
[2016-09-01] MEDS ORDERED: 1/2 NS + KCL 20 MEQ INJ 1,000 ML IV SCH (06:30)
[2016-09-01] MEDS: PYRIDOXINE HCL 100 MG/ML VIAL IV SCH ×2 (06:39)
[2016-09-01] MEDS: SODIUM CHLORIDE 0.9% FLUSH 10 ML FLUSH IV FLUSH SCH (07:25)
--- NOTE | 2016-09-01 07:53 | PD.OB.ANTE ---
Subjective Interval History Patient seen and examined this morning. Patient reports no emesis overnight or this morning. Does still have some nausea. Had just a little bit of breakfast this morning. No abdominal pain. No headache, chest pain, shortness of breath, leg pain. No new symptoms. No diarrhea. No vaginal bleeding, loss of fluids, contractions. Patient feels better this morning. Antepartum ROS: Denies: New complaints, Loss of fluid, Vaginal bleeding, movement normal, Contractions, Other Objective Vital Signs Vital Signs Date Time Temp Pulse Resp B/P Pulse Ox O2 Delivery O2 Flow Rate FiO2 08/31/16 20:25 53 18 113/48 08/31/16 20:25 98.0 08/31/16 18:00 50 123/72 08/31/16 18:00 18 08/31/16 18:00 98.4 08/31/16 17:00 17 08/31/16 16:00 18 08/31/16 15:00 18 08/31/16 14:00 18 08/31/16 12:47 98.4 17 08/31/16 12:41 49 122/61 08/31/16 12:00 16 08/31/16 11:00 17 08/31/16 10:00 16 08/31/16 08:40 98.2 16 08/31/16 08:33 50 111/46 Lab & Micro Results Test 08/31/16 09/01/16 20:20 05:42 White Blood Count 12.2 TH/MM3 11.2 TH/MM3 Red Blood Count 3.05 MIL/MM3 3.04 MIL/MM3 Hemoglobin 7.8 GM/DL 8.0 GM/DL Hematocrit 24.5 % 24.4 % Mean Corpuscular Volume 80.4 FL 80.5 FL Mean Corpuscular Hemoglobin 25.6 PG 26.4 PG Mean Corpuscular Hemoglobin 31.8 % 32.8 % Concent Red Cell Distribution Width 18.6 % 17.9 % Platelet Count 268 TH/MM3 277 TH/MM3 Mean Platelet Volume 7.2 FL 7.6 FL Neutrophils (%) (Auto) 75.8 % 75.9 % Lymphocytes (%) (Auto) 20.0 % 18.7 % Monocytes (%) (Auto) 3.4 % 4.7 % Eosinophils (%) (Auto) 0.6 % 0.5 % Basophils (%) (Auto) 0.2 % 0.2 % Neutrophils # (Auto) 9.2 TH/MM3 8.5 TH/MM3 Lymphocytes # (Auto) 2.4 TH/MM3 2.1 TH/MM3 Monocytes # (Auto) 0.4 TH/MM3 0.5 TH/MM3 Eosinophils # (Auto) 0.1 TH/MM3 0.1 TH/MM3 Basophils # (Auto) 0.0 TH/MM3 0.0 TH/MM3 CBC Comment DIFF FINAL DIFF FINAL Differential Comment Sodium Level 136 MEQ/L Potassium Level 3.0 MEQ/L Chloride Level 104 MEQ/L Carbon Dioxide Level 24.6 MEQ/L Anion Gap 7 MEQ/L Blood Urea Nitrogen 4 MG/DL Creatinine 0.50 MG/DL Estimat Glomerular Filtration 153 ML/MIN Rate Random Glucose 89 MG/DL Calcium Level 8.1 MG/DL Total Bilirubin 0.8 MG/DL Direct Bilirubin 0.2 MG/DL Aspartate Amino Transf 9 U/L (AST/SGOT) Alanine Aminotransferase 19 U/L (ALT/SGPT) Alkaline Phosphatase 43 U/L Total Protein 5.7 GM/DL Albumin 2.7 GM/DL Lipase 122 U/L Physical Exam GENERAL: Well-nourished, well-developed patient. CARDIOVASCULAR: Regular rate and rhythm without murmurs, gallops, or rubs. RESPIRATORY: Breath sounds equal bilaterally. No accessory muscle use. ABDOMEN/GI: Abdomen soft, non-tender. Gravid to 20 weeks EXTREMITIES: No cyanosis or edema, non-tender, without signs of DVT. Assessment and Plan Assessment and Plan 21 YO female at 20/6 weeks with nausea and vomiting of , diffuse abdominal pain, what appears to be baseline bradycardia and incidental CPs. Reassuring FHTs in 120s. Pt improving today. Decreased nausea/vomiting. Await GI recs 1. IUP - FHTs in 120s - No VB, LOF, CTX - Continue to monitor 2. Hx of bradycardia - Cards consult at last visit and following recs of avoiding QTc prolonging meds (zofran) 3. Abdominal pain w/nausea and vomiting - Ultrasound of abdomen, wnl - LR @ 100mls/hr - Tylenol PRN - Protonix 40 mg IV once - Vitamin B6 20 mg IV - Refrain from marijuana - GI being consulted-appreciate recs -Celiac panel, stool cx pending -Cleared by GI if tolerating diet 4. Anemia - Hbg 8.8 - Iron Polysaccharide 150 mg BID PO 5. Hx of substance abuse - UDS positive for cannabinoids - Denies use since last d/c Rocael Vasquez MD R1 Sep 01, 2016 07:53
[2016-09-01 08:00] VITALS: BP 109/55; PULSE 49; RESP 17; TEMP 98
[2016-09-01] MEDS ORDERED: POTASSIUM CHLORIDE 10 MEQ CONTROLLED RELEASE TAB PO ONE (08:00)
[2016-09-01] MEDS ORDERED: PROM25TA10 PO ×2 (08:02→08:12)
[2016-09-01] MEDS ORDERED: B-650TAB PO (08:02)
--- NOTE | 2016-09-01 08:14 | HHI.DCPOC ---
Discharge Care Plan Diagnosis: (1) (2) Nausea and vomiting during Report Symptoms to Your Doctor -Temperature above 100.5 degrees -Redness, of incision or excessive or foul smelling drainage -Unusual pain or calf pain -Increased vaginal bleeding -Painful or difficulty urinating -Feelings of extreme sadness or anxiety after 2 weeks Goals to Promote Your Health * To prevent worsening of your condition and complications * To maintain your health at the optimal level Directions to Meet Your Goals Take your medications as prescribed Follow your dietary instruction Follow activity as directed Ensure plenty of rest for recovery Drink fluids for hydration Keep your appointments as scheduled Take your immunizations and boosters as scheduled If your symptoms worsen call your PCP, if no PCP go to Urgent Care Center or Emergency Room Smoking is Dangerous to Your Health. Avoid second hand smoke Call the 24-hour crisis hotline for domestic abuse at Rocael Vasquez MD R1 Sep 01, 2016 08:14
[2016-09-01] MEDS ORDERED: PROM1SUP7 RECTAL (08:15)
[2016-09-01] MEDS ORDERED: VIST50CA PO (08:15)
[2016-09-01] MEDS: DOCUSATE SODIUM 100 MG CAP PO SCH (08:41)
[2016-09-01] MEDS: FAMOTIDINE 20 MG TAB PO SCH (08:41)
[2016-09-01] MEDS: POLYSACCHARIDE IRON COMPLEX 150 MG CAP PO SCH (08:41)
[2016-09-04 03:52] LABS: IGA SERUM 107 mg/dL (81-463); TISSUE TRANSGLUTAMINASE AB IGG ND U/mL (())
[2016-09-04 13:51] LABS: ENDOMYSIAL AB TITER ND (<1:5); TISSUE TRANSGLUTAMINASE AB LESS THAN 1 U/mL (())
[2016-09-06 09:02] LABS: BATH SALTS (MDPV) UR NEG (NEG); ECSTASY (MDMA) UR NEG (NEG); GABAPENTIN UR NEG (NEG); HEROIN (6-ACETYLMORPHINE) UR NEG (NEG); HYDROMORPHONE U NEG (NEG); K2 SPICE UR NEG (NEG); OBMETHADONE UR NEG (NEG); OXYCODONE (PERCODAN) NEG (NEG); PHENCYCLIDINE URINE NEG (NEG)
== END 2016-09-01 10:01 | disposition home or self-care (01) ==
LOC: HOBED 08:06 → H2EA 11:35
PROVIDERS: ADMIT Obstetrics & Gynecology Obstetrics; ATTEND Obstetrics & Gynecology Obstetrics
DX: O21.2 Late vomiting of pregnancy (principal); Z3A.20 20 weeks gestation of pregnancy; O99.89 Other specified diseases and conditions complicating pregnancy, childbirth and the puerperium; R10.9 Unspecified abdominal pain; O99.342 Other mental disorders complicating pregnancy, second trimester; F41.9 Anxiety disorder, unspecified; D64.9 Anemia, unspecified; E87.6 Hypokalemia; F12.10 Cannabis abuse, uncomplicated; R19.7 Diarrhea, unspecified
CPT/HCPCS: 76700; 80048; 80053; 80307; 81001; 82248; 82784; 83516; 83690; 84132; 85025; 85652; 93005; 96372; 99285; C9113; G0378; G0481; J2550; J3415; J3480; J7120

== ENCOUNTER → 2016-09-11 | Outpatient (CLI) | payer OTHER ==
[~2016-09-11] MED LIST changes: -FERR325T50 PO; +PROM1SUP7 RECTAL; +VIST50CA PO
== END ==
LOC: HPND 09:26
PROVIDERS: ATTEND Obstetrics & Gynecology
DX: O09.292 Supervision of pregnancy with other poor reproductive or obstetric history, second trimester (principal); O34.212 Maternal care for vertical scar from previous cesarean delivery
CPT/HCPCS: 76815; 76817

== ENCOUNTER 2016-09-25 13:36 | Emergency (ER) | payer OTHER ==
[~2016-09-25 13:36] MED LIST changes: -CITA10TA4 PO; -CITA20TA4 PO; -FERR325T8 PO; -GNP150TA PO; -NITR1CAP36 PO; -REGL10TA5 PO
[2016-09-25] MEDS ORDERED: TRIMETHOBENZAMIDE INJ 200 MG/2 ML VIAL IM ONE (14:45)
--- NOTE | 2016-09-25 14:47 | PD ---
HPI Chief Complaint Nausea and vomiting Date Seen: Sep 25, 2016 Travel History International Travel<30 Days: No Contact w/Intl Traveler<30Days: No History of Present Illness HPI Patient is a 21 year old at 24-2/7 weeks gestation who presents today for nausea and vomiting. Patient states that she has struggled with nausea and vomiting throughout her . She has had 5 episodes of emesis today and cannot keep any food or liquids down. She has not taken anything to help with the nausea or vomiting, but says that a hot shower or bath will help sometimes. She denies any vaginal bleeding or discharge. No pressure leaking of fluids. Positive movement. Of note, she has a history of QT prolongation and cannot take Zofran. History Past Medical History Narrative Medical QT prolongation MDD Obstetric History Obstetric History for preeclampsia Spontaneous at 17 weeks gestation Past Surgical History Narrative Surgical Family History Family History: Negative Social History Alcohol Use: No Tobacco Use: No Substance Abuse: Yes (history of marijuana use) Allergies-Medications (Allergen,Severity, Reaction): Coded Allergies: doxycycline (Unverified Adverse Reaction, Severe, VOMITING, 09/24/16) Home Meds Active Scripts Ferrous Sulfate 325 Mg (65 Mg Iron) [id number] Mg PO TIDPC #90 TAB Ref 0 Prov:Chapis Pagan MD, R3 09/25/16 Hydroxyzine Pamoate (Vistaril)50 Mg Cap50 Mg PO QID #120 CAP Ref 0 Prov:Chapis Pagan MD, R3 09/25/16 Metoclopramide (Reglan)10 Mg Tab10 Mg PO QID #120 TAB Ref 0 Prov:Chapis Pagan MD, R3 09/25/16 Hydroxyzine Pamoate (Vistaril)50 Mg Cap50 Mg PO TID PRN (NAUSEA OR VOMITING) # 60 CAP Ref 0 Prov:Rocael Vasquez MD, R2 09/01/16 Promethazine Supp (Phenergan Supp)25 Mg Supp25 Mg RECTAL Q6H PRN (NAUSEA OR VOMITING) #30 SUPP Ref 0 if unable to take PO Prov:Rocael Vasquez MD, R2 09/01/16 Promethazine (Phenergan)25 Mg [id number] Mg PO Q6H PRN (NAUSEA OR VOMITING) #120 TAB Take scheduled every 6 hours for a couple days, then take as needed Prov:Rocael Vasquez MD, R2 09/01/16 Pyridoxine (B-6)50 Mg Tab25 Mg PO Q6HR #120 TAB Prov:Rocael Vasquez MD, R2 09/01/16 Sertraline 50 Mg Tab50 Mg PO DAILY PRN (depression/anxiety) #30 TAB Ref 0 Prov:Ian Wood MD R1 08/27/16 Clonazepam (Klonopin)0.5 Mg Tab0.5 Mg PO Q12HR #60 TAB Prov:Ian Wood MD R1 08/27/16 W/O Vit A W/ Fe Carbo Pack (Citranatal 90 Dha Pack)90-1 & 300 Mg Pack1 Ea PO DAILY #60 PACK Ref 11 30 day supply. Prov:Anai Holley 06/18/16 Review of Systems Except as stated in HPI: all other systems reviewed are Neg General / Constitutional: No: Fever, Chills Eyes: Blurred Vision HENT: No: Headaches Cardiovascular: No: Chest Pain or Discomfort, Palpitations Respiratory: No: Cough, Short of Breath Gastrointestinal: Nausea, Vomiting, Loss of Appetite, No: Abdominal Pain Genitourinary: No: Dysuria, Hematuria, Pelvic Pain, Discharge, Vaginal Bleeding Musculoskeletal: No: Edema Psychiatric: Substance Abuse Physical Exam Narrative GENERAL: Well-nourished, well-developed patient. SKIN: Warm and dry. HEAD: Normocephalic and atraumatic. EYES: No scleral icterus. No injection or drainage. ENT: No nasal drainage noted. Mucous membranes pink. Airway patent. NECK: Supple, trachea midline. No JVD. CARDIOVASCULAR: Regular rate and rhythm without murmurs, gallops, or rubs. RESPIRATORY: Breath sounds equal bilaterally. No accessory muscle use. ABDOMEN/GI: Abdomen soft, non-tender, bowel sounds present, no rebound, no guarding Gravid to 24 weeks size GENITOURINARY: Membranes: Intact Uterine Contractions: None FHT's: 145 EXTREMITIES: No cyanosis or edema. BACK: Nontender without obvious deformity. No CVA tenderness. NEUROLOGICAL: Awake and alert. Motor and sensory grossly within normal limits. Normal speech. Data Data Vital Signs Reviewed: Yes Orders Vital Signs (Adult) .ON ADMISSION (8/16/17 14:22) ^ Labor Status (09/25/16 14:22) ^ Hydration (09/25/16 14:22) Urinalysis - C+S If Indicated (09/25/16 14:33) Cbc No Diff, Includes Plts (09/25/16 14:33) Comprehensive Metabolic Panel (09/25/16 14:33) Ob/Psych Drug Screen, Urine (09/25/16 14:33) MDM Medical Record Reviewed: Yes Narrative Course / MDM 21 year old at 24-2/7 weeks gestation. 1. IUP- FHT reassuring. 2. Nausea and vomiting- Will obtain CBC, CMP, UA, UDS and give 1L LR bolus, Tigan 200mg IM, and Reglan 10mg IV. 3. QT prolongation- will avoid medications that can cause/exacerbate QT prolongation. taina Bolton Addendum: UA significant for large leukocyte esterase and 10 WBC's- will treat for acute cystitis with gentamicin IV 100 mg once CBC significant for Hgb 8.0, will treat with ferrous sulfate 325mg PO TID when able to tolerate. UDS positive for cannabinoids- patient counseled to discontinue marijuana use. DC home on Reglan 10mg TIDAC and with a snack at bedtime scheduled and Vistaril 50mg QIDAC and HS Encourage bland diet Take medications as scheduled to prevent further nausea and vomiting Follow up with [facility] Diagnosis Diagnosis: Primary Impression: Acute cystitis during Qualified Code: O23.12 - Acute cystitis during in second trimester Additional Impression: Marijuana use, continuous Disposition: DISCHARGE HOME Condition: Stable Scripts Ferrous Sulfate 325 Mg (65 Mg Iron) [id number] Mg PO TIDPC #90 TAB Ref 0 Prov:Chapis Pagan MD, R3 09/25/16 Hydroxyzine Pamoate (Vistaril)50 Mg Cap50 Mg PO QID #120 CAP Ref 0 Prov:Chapis Pagan MD, R3 09/25/16 Metoclopramide (Reglan)10 Mg Tab10 Mg PO QID #120 TAB Ref 0 Prov:Chapis Pagan MD, R3 09/25/16 Chapis Pagan MD, R3 Sep 25, 2016 14:47
[2016-09-25] MEDS ORDERED: METOCLOPRAMIDE HCL 10 MG/2 ML VIAL IV PUSH ONE (15:00)
[2016-09-25 15:30] LABS: MEAN CELL VOLUME 81.8 FL (80.0-100.0); MEAN CORPUSCULAR HEMOGLOBIN 26.3 PG (27.0-34.0); MEAN CORPUSCULAR HGB CONC 32.2 % (32.0-36.0); PLATELET COUNT 272 TH/MM3 (150-450); RED BLOOD COUNT 3.06 MIL/MM3 (4.00-5.30); RED CELL DISTRIBUTION WIDTH 18.4 % (11.6-17.2); REVIEW FLAG FINAL; WHITE BLOOD COUNT 12.1 TH/MM3 (4.0-11.0)
[2016-09-25 15:48] LABS: ANION GAP 9 MEQ/L (5-15); AST (GOT) 8 U/L (15-37); BICARBONATE 21.6 MEQ/L (21.0-32.0); BLOOD UREA NITROGEN 6 MG/DL (7-18); CHLORIDE 108 MEQ/L (98-107); GLOMERULAR FILTRATION RATE 137 ML/MIN (>89); POTASSIUM 3.7 MEQ/L (3.5-5.1); SODIUM (NA) 139 MEQ/L (136-145)
[2016-09-25 15:50] LABS: ALKALINE PHOSPHATASE 53 U/L (45-117); ALT (GPT) 7 U/L (10-53); TOTAL BILIRUBIN ADULT 0.4 MG/DL (0.2-1.0)
[2016-09-25 16:27] LABS: BLOOD, URINE NEG (NEG); COMMENT (UR) CULTURE INDICATED; CULTURE IF INDICATED CULTURE INDICATED; GLUCOSE,URINE NEG (NEG); KETONE, URINE 40 mg/dL (NEG); MUCUS URINE FEW /lpf (OCC); NITRITE,URINE NEG (NEG); SQUAMOUS EPITHELIAL CELL URINE 5 /hpf (0-5); URINE COLOR YELLOW (YELLW/STRAW)
[2016-09-25] MEDS ORDERED: VIST50CA PO (16:58)
[2016-09-25] MEDS ORDERED: REGL10TA5 PO (16:58)
[2016-09-25] MEDS ORDERED: FERR325T8 PO (16:59)
[2016-09-25] MEDS ORDERED: LACTATED RINGER'S 1000 ML INJ 1,000 ML IV ONE (17:00)
[2016-09-25] MEDS ORDERED: GENTAMICIN INJ 100 MG in SODIUM CHLORIDE 0.9% INJ 100 ML IV ONE (18:00)
[2016-10-01 10:05] LABS: BATH SALTS (MDPV) UR NEG (NEG); ECSTASY (MDMA) UR NEG (NEG); GABAPENTIN UR NEG (NEG); HEROIN (6-ACETYLMORPHINE) UR NEG (NEG); HYDROMORPHONE U NEG (NEG); K2 SPICE UR NEG (NEG); OBMETHADONE UR NEG (NEG); PHENCYCLIDINE URINE NEG (NEG)
[2016-11-14] MEDS ORDERED: GNP150TA PO (14:14)
[2016-11-14] MEDS ORDERED: CITA20TA4 PO (14:28)
[2016-11-14] MEDS ORDERED: CITA10TA4 PO (14:28)
== END 2016-09-25 17:44 | disposition home or self-care (01) ==
LOC: HOBED 13:36
DX: O23.10 Infections of bladder in pregnancy, unspecified trimester (principal); O99.322 Drug use complicating pregnancy, second trimester; Z3A.24 24 weeks gestation of pregnancy; F12.90 Cannabis use, unspecified, uncomplicated
CPT/HCPCS: 80053; 80307; 81001; 85027; 87086; 96372; 96374; 96375; G0481; J1580; J2765; J3250; J7120

== ENCOUNTER 2016-09-25 23:31 | Inpatient (IN) | payer OTHER ==
[~2016-09-25 23:31] MED LIST changes: +FERR325T8 PO; +REGL10TA5 PO
[2016-09-25] MEDS ORDERED: SODIUM CHLORIDE 0.9% FLUSH 10 ML FLUSH IV FLUSH PRN (23:45)
[2016-09-25 23:46] VITALS: BP 126/93; PULSE 61
[2016-09-25 23:59] VITALS: RESP 18; TEMP 97.4
[2016-09-26] VITALS (23 sets, daily range): BP systolic 105–123; BP diastolic 38–70; PULSE 46–70; RESP 16–18; TEMP 97.7–98.5; O2SAT 99–100
[2016-09-26] MEDS ORDERED: SODIUM CHLORIDE 0.9% FLUSH 10 ML FLUSH IV FLUSH PRN
--- NOTE | 2016-09-26 00:28 | HHI.HP ---
HPI Chief Complaint vomiting Date Seen: Sep 26, 2016 Travel History International Travel<30 Days: No Contact w/Intl Traveler<30Days: No History of Present Illness HPI Ms. Simon is a 21 year old at 24 2/7 weeks GA who presents with nausea/ vomiting [Per EMR, patient seen earlier today for nausea/vomiting; she reports frequent nausea/vomiting during . Patient reportedly had 5 episodes of emesis today and could not tolerate oral intake. Patient reportedly has not been able to take medications but reports improvement with hot showers. patient found to have reassuring CMP; CBC demonstrated anemia with Hgb of 8. UDS positive for cannabinoids. patient found to have UA suggestive of UTI; she was treated with Gentamicin. Patient given 1 L LR. Due to history of QT prolongation, patient was given Tigan and Reglan to avoid QT prolonging agents. Patient discharged home on Reglan and Vistaril for anxiety.] Patient states that she has had continued symptoms since arriving home. Patient states that she has been unable to fill previously prescribed medications. Patient reports normal movement. Patient does not report vaginal bleeding or loss of vaginal fluid. No reported abdominal pain, chest pain, shortness of breath, dysuria, or other symptoms. Per records: Patient recommended to start ASA for history PREE. Patient on Klonopin and Zoloft. Para: 1 : 3 Miscarriage: 1 History Past Medical History Narrative Medical QT prolongation MDD Anxiety -On Zoloft, Klonopin Obstetric History Obstetric History for preeclampsia Spontaneous at 17 weeks gestation Past Surgical History Narrative Surgical Family History Family History: Negative Social History Narrative Social History UDS positive for marijuana 09/2016 Alcohol Use: No Tobacco Use: No Substance Abuse: Yes Allergies-Medications (Allergen,Severity, Reaction): Coded Allergies: doxycycline (Unverified Adverse Reaction, Severe, VOMITING, 09/24/16) Home Meds Active Scripts Ferrous Sulfate 325 Mg (65 Mg Iron) [id number] Mg PO TIDPC #90 TAB Ref 0 Prov:Chapis Pagan MD, R3 09/25/16 Hydroxyzine Pamoate (Vistaril)50 Mg Cap50 Mg PO QID #120 CAP Ref 0 Prov:Chapis Pagan MD, R3 09/25/16 Metoclopramide (Reglan)10 Mg Tab10 Mg PO QID #120 TAB Ref 0 Prov:Chapis Pagan MD, R3 09/25/16 Hydroxyzine Pamoate (Vistaril)50 Mg Cap50 Mg PO TID PRN (NAUSEA OR VOMITING) # 60 CAP Ref 0 Prov:Rocael Vasquez MD, R2 09/01/16 Promethazine Supp (Phenergan Supp)25 Mg Supp25 Mg RECTAL Q6H PRN (NAUSEA OR VOMITING) #30 SUPP Ref 0 if unable to take PO Prov:Rocael Vasquez MD, R2 09/01/16 Promethazine (Phenergan)25 Mg [id number] Mg PO Q6H PRN (NAUSEA OR VOMITING) #120 TAB Take scheduled every 6 hours for a couple days, then take as needed Prov:Rocael Vasquez MD, R2 09/01/16 Pyridoxine (B-6)50 Mg Tab25 Mg PO Q6HR #120 TAB Prov:Rocael Vasquez MD, R2 09/01/16 Sertraline 50 Mg Tab50 Mg PO DAILY PRN (depression/anxiety) #30 TAB Ref 0 Prov:Ian Wood MD R1 08/27/16 Clonazepam (Klonopin)0.5 Mg Tab0.5 Mg PO Q12HR #60 TAB Prov:aIn Wood MD R1 08/27/16 W/O Vit A W/ Fe Carbo Pack (Citranatal 90 Dha Pack)90-1 & 300 Mg Pack1 Ea PO DAILY #60 PACK Ref 11 30 day supply. Prov:Anai Holley 06/18/16 Review of Systems General / Constitutional: No: Fever, Chills Eyes: No: Blurred Vision HENT: No: Headaches Cardiovascular: No: Chest Pain or Discomfort Respiratory: No: Short of Breath Gastrointestinal: Nausea, Vomiting, No: Diarrhea, Abdominal Pain Genitourinary: No: Urgency, Dysuria Psychiatric: No: Anxiety, Depression Physical Exam Vital Signs Date Time Temp Pulse Resp B/P Pulse Ox O2 Delivery O2 Flow Rate FiO2 09/25/16 23:59 97.4 18 Narrative GENERAL: Well-nourished, well-developed patient. Vomiting during exam SKIN: Warm and dry. HEAD: Normocephalic and atraumatic. EYES: No scleral icterus. No injection or drainage. ENT: No nasal drainage noted. Mucous membranes pink. Airway patent. NECK: Supple, trachea midline. No JVD. CARDIOVASCULAR: Regular rate and rhythm without murmurs RESPIRATORY: Breath sounds equal bilaterally. No accessory muscle use. ABDOMEN/GI: Abdomen soft, non-tender, bowel sounds present, no rebound, no guarding Gravid to 24 weeks size EXTREMITIES: No cyanosis or edema. BACK: Nontender without obvious deformity. NEUROLOGICAL: Awake and alert. Motor and sensory function grossly within normal limits. Normal speech. GENITOURINARY: Membranes: Intact Uterine Contractions: None FHT's: 135, reactive, moderate variability Data Data Vital Signs Reviewed: Yes Orders Place In Observation (09/25/16 ) Vital Signs (Adult) Q4H (09/25/16 23:44) Activity Oob Ad Daniella (09/25/16 23:44) Intake + Output RENE.QSHIFT (09/25/16 23:44) Diet Npo (09/26/16 Breakfast) D5-1/2 Ns + Kcl 20 Meq Inj (D5-1/2 Ns + (09/25/16 23:44) Sodium Chloride 0.9% Flush (Ns Flush) (09/25/16 23:45) Sodium Chloride 0.9% Flush (Ns Flush) (09/26/16 09:00) Amylase (09/25/16 23:44) Lipase (09/25/16 23:44) Magnesium (Mg) (09/25/16 23:44) Phosphorus (Po4) (09/25/16 23:44) Trimethobenzamide Inj (Tigan Inj) (09/26/16 00:00) Prochlorperazine Inj (Compazine Inj) (09/26/16 00:00) Heart RENE.QSHIFT (09/25/16 23:52) Heart RENE.QD (09/25/16 23:52) Sodium Chloride 0.9% Flush (Ns Flush) (09/26/16 09:00) Sodium Chloride 0.9% Flush (Ns Flush) (09/26/16 00:00) Ob (2e) Additional Admit Info (09/25/16 23:55) Assessment/Plan Problem List: (1) Hyperemesis gravidarum Assessment and Plan 21 year old at 24 2/7 weeks GA who presents with nausea/vomiting: -FHT reassuring -Nausea and vomiting: -Labs obtained earlier today: CBC with Hgb 8, CMP unremarkable -UDS 09/25 marijuana + -UA suggestive of UTI 09/25 (large leukocyte esterase, 10 WBC); patient s/p Gentamicin x1 -PMH QT prolongation Plan: -Will plan to admit to observation since patient unable to control vomiting/ oral intake at home -Will give IV D5 1/2NS with KCl -Will give Tigan 200mg IM scheduled and Compazine 10mg q6hrs PRN -Will check Amylase, Lipase, Mg, PO4 -Once able to take oral meds will plan to initiate oral iron Maxwell Jerry MD, R3 Sep 26, 2016 00:28
[2016-09-26 01:02] LABS: AUTOMATED NEUTROPHIL # 11.6 TH/MM3 (1.8-7.7); BASOPHIL # 0.1 TH/MM3 (0-0.2); BASOPHIL % 0.4 % (0.0-2.0); EOSINOPHIL % 0.3 % (0.0-4.0); HEMATOCRIT 27.6 % (35.0-46.0); HEMO FLAGS DIFF FINAL; LYMPH % 9.8 % (9.0-44.0); LYMPHOCYTE # 1.3 TH/MM3 (1.0-4.8); MEAN CELL VOLUME 81.7 FL (80.0-100.0); MEAN CORPUSCULAR HEMOGLOBIN 26.5 PG (27.0-34.0); MEAN CORPUSCULAR HGB CONC 32.5 % (32.0-36.0); MONO % 3.1 % (0.0-8.0); NEUT % 86.4 % (16.0-70.0); PLATELET COUNT 309 TH/MM3 (150-450); RED BLOOD COUNT 3.38 MIL/MM3 (4.00-5.30); RED CELL DISTRIBUTION WIDTH 18.2 % (11.6-17.2); WHITE BLOOD COUNT 13.4 TH/MM3 (4.0-11.0)
[2016-09-26] MEDS: D5-1/2 NS + KCL 20 MEQ INJ 1,000 ML IV SCH ×3 (01:11→19:44)
[2016-09-26 01:34] LABS: ALT (GPT) 6 U/L (10-53); ANION GAP 11 MEQ/L (5-15); AST (GOT) 6 U/L (15-37); BICARBONATE 20.9 MEQ/L (21.0-32.0); BLOOD UREA NITROGEN 5 MG/DL (7-18); CHLORIDE 107 MEQ/L (98-107); GLOMERULAR FILTRATION RATE 115 ML/MIN (>89); POTASSIUM 3.5 MEQ/L (3.5-5.1); SODIUM (NA) 139 MEQ/L (136-145)
[2016-09-26 01:36] LABS: ALKALINE PHOSPHATASE 51 U/L (45-117); TOTAL BILIRUBIN ADULT 0.6 MG/DL (0.2-1.0)
[2016-09-26] MEDS: LORazepam 2 MG/ML VIAL IV PUSH PRN (02:58)
[2016-09-26] MEDS: PROCHLORPERAZINE INJ 10 MG/2 ML VIAL IM PRN (03:05)
[2016-09-26 03:09] LABS: MAGNESIUM 1.5 MG/DL (1.5-2.5)
--- NOTE | 2016-09-26 07:03 | PD.OB.ANTE ---
Subjective Diagnosis: (1) Hyperemesis gravidarum Diagnosis: Principal Interval History Patient with continuous nausea overnight. She took a shower this morning and is now feeling somewhat better. She is responding well to Tigan and IV Compazine. She denies any chest pain, shortness of breath, abdominal pain, leg pain, fever, or chills. She denies any vaginal bleeding or discharge. No gush or leaking of fluid. Positive movement. No contractions. Antepartum ROS: Reports: movement normal, Denies: New complaints, Loss of fluid, Vaginal bleeding, Contractions Objective Vital Signs Vital Signs Date Time Temp Pulse Resp B/P Pulse Ox O2 Delivery O2 Flow Rate FiO2 09/26/16 05:40 70 100 09/26/16 05:20 55 100 09/26/16 05:01 113/48 09/26/16 04:55 54 100 09/26/16 04:40 57 100 09/26/16 04:25 58 99 09/26/16 04:10 60 99 09/26/16 04:05 100 09/26/16 04:01 106/46 09/26/16 03:55 64 100 09/26/16 03:37 54 109/49 09/26/16 03:35 100 09/26/16 03:25 52 100 09/26/16 03:09 97.7 18 09/26/16 03:08 46 123/70 09/26/16 01:30 18 09/26/16 01:13 54 109/51 09/25/16 23:59 97.4 18 09/25/16 23:46 61 126/93 09/25/16 23:46 61 126/93 Lab & Micro Results Test 09/26/16 00:30 White Blood Count 13.4 TH/MM3 Red Blood Count 3.38 MIL/MM3 Hemoglobin 9.0 GM/DL Hematocrit 27.6 % Mean Corpuscular Volume 81.7 FL Mean Corpuscular Hemoglobin 26.5 PG Mean Corpuscular Hemoglobin 32.5 % Concent Red Cell Distribution Width 18.2 % Platelet Count 309 TH/MM3 Mean Platelet Volume 7.9 FL Neutrophils (%) (Auto) 86.4 % Lymphocytes (%) (Auto) 9.8 % Monocytes (%) (Auto) 3.1 % Eosinophils (%) (Auto) 0.3 % Basophils (%) (Auto) 0.4 % Neutrophils # (Auto) 11.6 TH/MM3 Lymphocytes # (Auto) 1.3 TH/MM3 Monocytes # (Auto) 0.4 TH/MM3 Eosinophils # (Auto) 0.0 TH/MM3 Basophils # (Auto) 0.1 TH/MM3 CBC Comment DIFF FINAL Differential Comment Sodium Level 139 MEQ/L Potassium Level 3.5 MEQ/L Chloride Level 107 MEQ/L Carbon Dioxide Level 20.9 MEQ/L Anion Gap 11 MEQ/L Blood Urea Nitrogen 5 MG/DL Creatinine 0.64 MG/DL Estimat Glomerular Filtration 115 ML/MIN Rate Random Glucose 114 MG/DL Calcium Level 8.3 MG/DL Phosphorus Level 1.8 MG/DL Magnesium Level 1.5 MG/DL Total Bilirubin 0.6 MG/DL Aspartate Amino Transf 6 U/L (AST/SGOT) Alanine Aminotransferase 6 U/L (ALT/SGPT) Alkaline Phosphatase 51 U/L Total Protein 6.4 GM/DL Albumin 2.9 GM/DL Amylase Level 47 U/L Lipase 57 U/L Physical Exam GENERAL: Well-nourished, well-developed patient. CARDIOVASCULAR: Regular rate and rhythm without murmurs, gallops, or rubs. RESPIRATORY: Breath sounds equal bilaterally. No accessory muscle use. ABDOMEN/GI: Abdomen soft, non-tender. Fundus: 24 GENITOURINARY: External Genitalia: intact and normal in appearance Membranes: intact Uterine Contractions: none FHT's: 138 EXTREMITIES: No cyanosis or edema, non-tender, without signs of DVT. Assessment and Plan Problem List: (1) Hyperemesis gravidarum Status: Acute Assessment and Plan 21 year old at 24 3/7 weeks gestation admitted for hyperemesis gravidarum. -FHT reassuring -UDS 09/25 marijuana + -UA suggestive of UTI 09/25 (large leukocyte esterase, 10 WBC); patient s/p Gentamicin x1 -PMH QT prolongation -Amylase, Lipase, Mg, PO4 wnl Plan: -Continue IV D5 1/2NS with KCl @ 100cc/hr -Continue Tigan 200mg IM scheduled and Compazine 10mg q6hrs PRN -Once able to take oral meds will plan to initiate oral iron - supportive care dw Dr. Bolton and Dr. Prasad R1 Chapis Pagan MD, R3 Sep 26, 2016 07:03
[2016-09-26] MEDS: TRIMETHOBENZAMIDE INJ 200 MG/2 ML VIAL IM SCH ×3 (08:43→17:09)
[2016-09-26] MEDS ORDERED: SODIUM CHLORIDE 0.9% FLUSH 10 ML FLUSH IV FLUSH SCH (09:00)
[2016-09-26] MEDS: SODIUM CHLORIDE 0.9% FLUSH 10 ML FLUSH IV FLUSH SCH ×2 (09:00→21:00)
[2016-09-26] MEDS: POTASSIUM CHLORIDE INJ 20 MEQ in LACTATED RINGER'S 1000 ML INJ 1,000 ML IV SCH ×2 (10:45→17:10)
[2016-09-26] MEDS: POTASSIUM CHLOR 20 MEQ PREMIX 100 ML IV SCH (18:19)
[2016-09-27] VITALS (8 sets, daily range): BP systolic 102–116; BP diastolic 50–61; PULSE 46–52; RESP 16–18; TEMP 98.2–98.4
[2016-09-27] MEDS: POTASSIUM CHLOR 20 MEQ PREMIX 100 ML IV SCH (00:39)
[2016-09-27] MEDS: TRIMETHOBENZAMIDE INJ 200 MG/2 ML VIAL IM SCH ×3 (00:40→15:57)
[2016-09-27] MEDS: POTASSIUM CHLORIDE INJ 20 MEQ in LACTATED RINGER'S 1000 ML INJ 1,000 ML IV SCH ×4 (00:40→20:25)
[2016-09-27] MEDS: LORazepam 2 MG/ML VIAL IV PUSH PRN ×2 (05:43→15:57)
[2016-09-27] MEDS: D5-1/2 NS + KCL 20 MEQ INJ 1,000 ML IV SCH (05:44)
[2016-09-27] MEDS ORDERED: PYRIDOXINE HCL 50 MG TAB PO SCH (06:45)
[2016-09-27] MEDS ORDERED: SERTRALINE HCL 50 MG TAB PO PRN (06:45)
[2016-09-27] MEDS: SODIUM CHLORIDE 0.9% FLUSH 10 ML FLUSH IV FLUSH SCH ×2 (09:00→20:55)
[2016-09-27] MEDS: FERROUS SULFATE 325 MG (65 MG ELEMENTAL IRON) TAB PO SCH ×4 (09:00→18:48)
[2016-09-27] MEDS: clonazePAM 0.5 MG TAB PO SCH ×2 (09:00→20:55)
[2016-09-27] MEDS: MULTIVIT/MIN/PREN/FOL AC/IRON PRENATAL TAB PO SCH (09:09)
--- NOTE | 2016-09-27 09:39 | PD.OB.ANTE ---
Subjective Diagnosis: (1) Hyperemesis gravidarum Diagnosis: Principal Interval History No acute issues overnight. Vitals are stable, patient remains afebrile. She did have 1 episode of diarrhea this morning. She has not had any oral intake for the past 24 hours. She states that she wants to try eating Patrice charms this morning. She has been feeling very anxious, and would like to resume her home medications of Zoloft and Klonopin. Anxiety is improving with Ativan. She is still having occasional nausea, but it is better controlled with the Tigan. Antepartum ROS: Reports: movement normal, Denies: New complaints, Loss of fluid, Vaginal bleeding, Contractions Objective Vital Signs Vital Signs Date Time Temp Pulse Resp B/P Pulse Ox O2 Delivery O2 Flow Rate FiO2 09/27/16 05:41 16 09/27/16 05:40 46 116/61 09/27/16 05:00 18 09/27/16 01:00 98.4 09/27/16 00:45 18 09/27/16 00:44 50 108/51 09/26/16 20:32 98.3 48 113/63 09/26/16 20:31 18 09/26/16 16:23 53 107/40 09/26/16 16:22 16 09/26/16 16:22 98.5 Lab & Micro Results Test 09/26/16 12:22 Potassium Level 3.1 MEQ/L Physical Exam GENERAL: Well-nourished, well-developed patient. CARDIOVASCULAR: Regular rate and rhythm without murmurs, gallops, or rubs. RESPIRATORY: Breath sounds equal bilaterally. No accessory muscle use. ABDOMEN/GI: Abdomen soft, non-tender. Fundus: 24 GENITOURINARY: External Genitalia: intact and normal in appearance Membranes: intact Uterine Contractions: none FHT's: Category: 140 EXTREMITIES: No cyanosis or edema, non-tender, without signs of DVT. Assessment and Plan Problem List: (1) Hyperemesis gravidarum Status: Acute Assessment and Plan 21 year old at 24 4/7 weeks gestation admitted for hyperemesis gravidarum. -FHT reassuring -UDS 09/25 marijuana + -UA suggestive of UTI 09/25 (large leukocyte esterase, 10 WBC); patient s/p Gentamicin x1 -PMH QT prolongation -Amylase, Lipase, Mg, PO4 wnl Plan: -Continue LR with KCl @ 150cc/hr -Continue Tigan 200mg IM scheduled and Compazine 10mg q6hrs PRN - Resume home Diclegis - Resume home medications Zoloft, Klonopin - Ferrous Sulfate 325mg PO BID for anemia - Diet as tolerated today - supportive care dw Dr. Genao and Dr. Prasad R1 Chapis Pagan MD, R3 Sep 27, 2016 09:39 Chapis Pagan MD, R3 Sep 27, 2016 09:39
[2016-09-27 12:17] LABS: AUTOMATED NEUTROPHIL # 8.2 TH/MM3 (1.8-7.7); BASOPHIL % 0.2 % (0.0-2.0); EOSINOPHIL % 0.3 % (0.0-4.0); HEMATOCRIT 23.4 % (35.0-46.0); HEMO FLAGS DIFF FINAL; LYMPH % 17.3 % (9.0-44.0); LYMPHOCYTE # 1.8 TH/MM3 (1.0-4.8); MEAN CELL VOLUME 81.6 FL (80.0-100.0); MEAN CORPUSCULAR HEMOGLOBIN 26.9 PG (27.0-34.0); MONO % 4.5 % (0.0-8.0); NEUT % 77.7 % (16.0-70.0); PLATELET COUNT 254 TH/MM3 (150-450); RED BLOOD COUNT 2.87 MIL/MM3 (4.00-5.30); RED CELL DISTRIBUTION WIDTH 18.4 % (11.6-17.2); WHITE BLOOD COUNT 10.5 TH/MM3 (4.0-11.0)
[2016-09-27] MEDS: PYRIDOXINE HCL 50 MG TAB PO SCH ×2 (12:26→18:48)
[2016-09-27 12:35] LABS: BICARBONATE 20.6 MEQ/L (21.0-32.0); POTASSIUM 3.8 MEQ/L (3.5-5.1)
[2016-09-28] MEDS: PYRIDOXINE HCL 50 MG TAB PO SCH ×4 (00:05→18:53)
[2016-09-28] MEDS: TRIMETHOBENZAMIDE INJ 200 MG/2 ML VIAL IM SCH ×3 (00:06→16:38)
[2016-09-28] MEDS: POTASSIUM CHLORIDE INJ 20 MEQ in LACTATED RINGER'S 1000 ML INJ 1,000 ML IV SCH (03:09)
[2016-09-28] MEDS: LORazepam 2 MG/ML VIAL IV PUSH PRN ×2 (03:39→15:02)
[2016-09-28 03:44] VITALS: BP 106/40; PULSE 49
[2016-09-28 09:00] VITALS: BP 110/58; PULSE 53
--- NOTE | 2016-09-28 09:25 | PD.OB.ANTE ---
Subjective Diagnosis: (1) Hyperemesis gravidarum Diagnosis: Principal Interval History Patient reports feeling better than yesterday today. She has not had any vomiting since early yesterday but continues to have nausea intermittently. Loose bowel movements. She has not yet eaten this morning but feels hungry. She has no abdominal pain. She has no labor symptoms denies vaginal bleeding, gush of fluid, contractions. She feels baby move. Antepartum ROS: Denies: New complaints, Loss of fluid, Vaginal bleeding, movement normal, Contractions Objective Vital Signs Vital Signs Date Time Temp Pulse Resp B/P Pulse Ox O2 Delivery O2 Flow Rate FiO2 09/28/16 09:00 53 110/58 09/28/16 03:44 49 106/40 09/27/16 20:30 52 102/50 09/27/16 20:30 52 102/50 09/27/16 20:29 98.2 Lab & Micro Results Test 09/27/16 11:12 White Blood Count 10.5 TH/MM3 Red Blood Count 2.87 MIL/MM3 Hemoglobin 7.7 GM/DL Hematocrit 23.4 % Mean Corpuscular Volume 81.6 FL Mean Corpuscular Hemoglobin 26.9 PG Mean Corpuscular Hemoglobin 33.0 % Concent Red Cell Distribution Width 18.4 % Platelet Count 254 TH/MM3 Mean Platelet Volume 8.0 FL Neutrophils (%) (Auto) 77.7 % Lymphocytes (%) (Auto) 17.3 % Monocytes (%) (Auto) 4.5 % Eosinophils (%) (Auto) 0.3 % Basophils (%) (Auto) 0.2 % Neutrophils # (Auto) 8.2 TH/MM3 Lymphocytes # (Auto) 1.8 TH/MM3 Monocytes # (Auto) 0.5 TH/MM3 Eosinophils # (Auto) 0.0 TH/MM3 Basophils # (Auto) 0.0 TH/MM3 CBC Comment DIFF FINAL Differential Comment Sodium Level 139 MEQ/L Potassium Level 3.8 MEQ/L Chloride Level 106 MEQ/L Carbon Dioxide Level 20.6 MEQ/L Anion Gap 12 MEQ/L Blood Urea Nitrogen 3 MG/DL Creatinine 0.49 MG/DL Estimat Glomerular Filtration 157 ML/MIN Rate Random Glucose 68 MG/DL Calcium Level 8.1 MG/DL Physical Exam GENERAL: Well-nourished, well-developed female in no apparent distress. CARDIOVASCULAR: Regular rate and rhythm without murmurs, gallops, or rubs. RESPIRATORY: Breath sounds equal bilaterally. No accessory muscle use. ABDOMEN/GI: Abdomen soft, non-tender. Fundus: Nontender, just above umbilicus. GENITOURINARY: External Genitalia: Deferred FHT's: Category: 1 Baseline: 140s Reactive: 150s Variability: mod Decels: absent EXTREMITIES: No cyanosis or edema, non-tender, without signs of DVT. Assessment and Plan Problem List: (1) Hyperemesis gravidarum Status: Acute Assessment and Plan 21 year old at 24 5/7 weeks gestation admitted for hyperemesis gravidarum. -FHT reassuring -UDS 09/25 marijuana + -UA suggestive of UTI 09/25 (large leukocyte esterase, 10 WBC); patient s/p Gentamicin x1 -PMH QT prolongation -Amylase, Lipase, Mg, PO4 wnl Plan: -Discontinued LR with KCl @ 150cc/hr -Continue Tigan 200mg IM scheduled and Compazine 10mg q6hrs PRN. Will discharge with Vistaril and Reglan are descended forms. In addition to Tigan suppositories - Resume home Diclegis discharge, currently receiving B6 - Resume home medications Zoloft, Klonopin - Ferrous Sulfate 325mg PO BID for anemia - Diet as tolerated today - supportive care dw Dr. Hoang Leiva,Chen Garcia MD R2 Sep 28, 2016 09:25
[2016-09-28] MEDS: MULTIVIT/MIN/PREN/FOL AC/IRON PRENATAL TAB PO SCH (11:35)
[2016-09-28] MEDS: clonazePAM 0.5 MG TAB PO SCH ×2 (11:35→20:35)
[2016-09-28] MEDS: SODIUM CHLORIDE 0.9% FLUSH 10 ML FLUSH IV FLUSH SCH ×2 (11:36→23:55)
[2016-09-28] MEDS: FERROUS SULFATE 325 MG (65 MG ELEMENTAL IRON) TAB PO SCH ×2 (11:59→16:38)
[2016-09-28 12:03] VITALS: BP 117/56; PULSE 51
[2016-09-28] MEDS: PROCHLORPERAZINE INJ 10 MG/2 ML VIAL IM PRN (15:02)
[2016-09-28 19:25] VITALS: TEMP 98.3
[2016-09-28 19:26] VITALS: BP 106/48; PULSE 53; RESP 16
[2016-09-29 00:05] VITALS: BP 104/53; PULSE 49; RESP 16; TEMP 98.3
[2016-09-29] MEDS: PYRIDOXINE HCL 50 MG TAB PO SCH ×2 (06:03)
[2016-09-29 06:04] VITALS: BP 103/57; PULSE 51
[2016-09-29] MEDS: LORazepam 2 MG/ML VIAL IV PUSH PRN (06:12)
[2016-09-29] MEDS ORDERED: PROM1SUP7 RECTAL (07:25)
--- NOTE | 2016-09-29 07:27 | PD.OB.ANTE ---
Subjective Diagnosis: (1) Hyperemesis gravidarum Diagnosis: Principal Interval History Patient reports feeling much better today. She has not had any vomiting since early yesterday and nausea improved. She tolerated dinner yesterday, ate at least 50% of the meal. She plans to eat a bagel today. She has no abdominal pain. She has no labor symptoms denies vaginal bleeding, gush of fluid, contractions. She feels baby move. Antepartum ROS: Denies: New complaints, Loss of fluid, Vaginal bleeding, movement normal, Contractions, Other Objective Vital Signs Vital Signs Date Time Temp Pulse Resp B/P Pulse Ox O2 Delivery O2 Flow Rate FiO2 09/29/16 06:04 51 103/57 09/29/16 00:05 98.3 16 09/29/16 00:05 49 104/53 09/29/16 00:05 49 104/53 09/28/16 19:26 16 09/28/16 19:26 53 106/48 09/28/16 19:25 98.3 09/28/16 12:03 51 117/56 09/28/16 09:00 53 110/58 Physical Exam GENERAL: Well-nourished, well-developed female in no apparent distress. CARDIOVASCULAR: Regular rate and rhythm without murmurs, gallops, or rubs. RESPIRATORY: Breath sounds equal bilaterally. No accessory muscle use. ABDOMEN/GI: Abdomen soft, non-tender. Fundus: Nontender, just above umbilicus. GENITOURINARY: External Genitalia: Deferred FHT's: Category: 1 Baseline: 140s Reactive: 150s Variability: mod Decels: absent EXTREMITIES: No cyanosis or edema, non-tender, without signs of DVT. Assessment and Plan Problem List: (1) Hyperemesis gravidarum Status: Acute Assessment and Plan 21 year old at 24 5/7 weeks gestation admitted for hyperemesis gravidarum. -FHT reassuring -UDS 09/25 marijuana + -UA suggestive of UTI 09/25 (large leukocyte esterase, 10 WBC); patient s/p Gentamicin x1 -PMH QT prolongation -Amylase, Lipase, Mg, PO4 wnl Plan: - Tolerating PO and no vomiting for >24hr --> will discharge home this morning - While inpatient, continue Tigan 200mg IM scheduled and Compazine 10mg q6hrs PRN. Will discharge with Vistaril and Reglan as previously prescribed. In addition to Tigan suppositories (which are likely not available), will renew Phenergan suppositories. - Resume home Diclegis discharge, currently receiving B6 - Resume home medications Zoloft, Klonopin - Ferrous Sulfate 325mg PO BID for anemia - supportive care dw Chen Ponce MD R2 Sep 29, 2016 07:27
--- NOTE | 2016-09-29 07:28 | HHI.DCPOC ---
Discharge Care Plan Diagnosis: (1) Breech presentation (2) Hyperemesis gravidarum Report Symptoms to Your Doctor -Temperature above 100.5 degrees -Redness, of incision or excessive or foul smelling drainage -Unusual pain or calf pain -Increased vaginal bleeding -Painful or difficulty urinating -Feelings of extreme sadness or anxiety after 2 weeks Goals to Promote Your Health * To prevent worsening of your condition and complications * To maintain your health at the optimal level Directions to Meet Your Goals Take your medications as prescribed Follow your dietary instruction Follow activity as directed Ensure plenty of rest for recovery Drink fluids for hydration Keep your appointments as scheduled Take your immunizations and boosters as scheduled If your symptoms worsen call your PCP, if no PCP go to Urgent Care Center or Emergency Room Smoking is Dangerous to Your Health. Avoid second hand smoke Call the 24-hour crisis hotline for domestic abuse at Chen Leiva MD R2 Sep 29, 2016 07:28
[2016-09-29 07:52] VITALS: BP 113/56; PULSE 52
[2016-09-29] MEDS: MULTIVIT/MIN/PREN/FOL AC/IRON PRENATAL TAB PO SCH (07:52)
[2016-09-29] MEDS: TRIMETHOBENZAMIDE INJ 200 MG/2 ML VIAL IM SCH ×2 (07:52)
[2016-09-29] MEDS: clonazePAM 0.5 MG TAB PO SCH (07:52)
[2016-09-29] MEDS: SODIUM CHLORIDE 0.9% FLUSH 10 ML FLUSH IV FLUSH SCH (07:52)
[2016-11-14] MEDS ORDERED: GNP150TA PO (14:14)
[2016-11-14] MEDS ORDERED: CITA20TA4 PO (14:28)
[2016-11-14] MEDS ORDERED: CITA10TA4 PO (14:28)
== END 2016-09-29 10:00 | disposition home or self-care (01) | DRG 781 ==
LOC: HOBED 23:31 → UNDOADMOB 09-26 → H2EA 09-26 → OBSVTOIN 09-27 11:33 → INTOOBSV 09-27 11:33
PROVIDERS: ADMIT Obstetrics & Gynecology Maternal & Fetal Medicine; ATTEND Obstetrics & Gynecology Maternal & Fetal Medicine
DX: O21.0 Mild hyperemesis gravidarum (principal); O23.42 Unspecified infection of urinary tract in pregnancy, second trimester; D64.9 Anemia, unspecified; O99.012 Anemia complicating pregnancy, second trimester; O99.342 Other mental disorders complicating pregnancy, second trimester; F41.9 Anxiety disorder, unspecified; Z3A.24 24 weeks gestation of pregnancy
CPT/HCPCS: 59025; 80048; 80053; 80307; 81001; 82150; 83690; 83735; 84100; 84132; 85025; 85027; 87086; 99285; G0378; G0481; J0780; J1580; J2060; J2765; J3250; J3480; J7120

== ENCOUNTER → 2016-09-25 | Outpatient (CLI) | payer OTHER ==
[~2016-09-25] MED LIST changes: +CITA10TA4 PO; +CITA20TA4 PO; +FERR325T8 PO; +GNP150TA PO; +NITR1CAP36 PO; +REGL10TA5 PO
== END ==
LOC: HPND 12:55
PROVIDERS: ATTEND Obstetrics & Gynecology
DX: O09.212 Supervision of pregnancy with history of pre-term labor, second trimester (principal); O09.292 Supervision of pregnancy with other poor reproductive or obstetric history, second trimester
CPT/HCPCS: 76816; 76817

== ENCOUNTER 2016-10-04 10:05 | Emergency (ER) | payer OTHER ==
--- NOTE | 2016-10-04 10:52 | PD ---
HPI Chief Complaint Abdominal pain Date Seen: Oct 04, 2016 (Chapis Pagan MD, R3) Travel History International Travel<30 Days: No Contact w/Intl Traveler<30Days: No (Chapis Pagan MD, R3) History of Present Illness HPI Patient is a 21 year old at 25-4/7 weeks gestation with complicated by hyperemesis gravidarum who presents today for lower abdominal pain. Pain started yesterday and has progressively worsened. It is described as a sharp pain that comes and goes and lasts for about three minutes when present. She denies any associated vaginal bleeding or discharge. No gush or leaking of fluid. Positive movement. She has abstained from marijuana since her last hospitalization. She continues to struggle with nausea and vomiting and was not able to tolerate breakfast this morning. She does have a headache and is seeing spots. care with [facility]. (Chapis Pagan MD, R3) History Past Medical History Narrative Medical Prolonged QT interval Hyperemesis Gravidarum MDD Anxiety (Chapis Pagan MD, R3) Obstetric History Obstetric History at 39 weeks gestation for preeclampsia in 2014 at 17-4/7 weeks gestation (Chapis Pagan MD, R3) Past Surgical History Narrative Surgical 2014 (Chapis Pagan MD, R3) Family History Family History: Negative (Chapis Pagan MD, R3) Social History Alcohol Use: No Tobacco Use: Yes (occasional cigarettes) Substance Abuse: Yes (history of marijuana abuse) (Chapis Pagan MD, R3) Allergies-Medications (Allergen,Severity, Reaction): Coded Allergies: doxycycline (Unverified Adverse Reaction, Severe, VOMITING, 09/30/16) Home Meds Active Scripts Clonazepam (Klonopin) 0.5 Mg Tab, 0.5 MG PO Q12HR for Anxiety and/or Insomnia, # 60 TAB Prov:Chapis Pagan MD, R3 10/04/16 Nitrofurantoin Macrocrystal (Nitrofurantoin Macrocrystal) 100 Mg Cap, 100 MG PO BID for Infection, #14 CAP 0 Refills Prov:Chapis Pagan MD, R3 10/04/16 Promethazine Supp (Phenergan Supp) 25 Mg Supp, 25 MG RECTAL Q6H Y for NAUSEA OR VOMITING, #30 SUPP 0 Refills if unable to take PO Prov:Chen Leiva MD R2 09/29/16 Ferrous Sulfate (Ferrous Sulfate) 325 Mg (65 Mg Iron) Tablet, 325 MG PO TIDPC for Nutritional Supplement, #90 TAB 0 Refills Prov:Chapis Pagan MD, R3 09/25/16 Hydroxyzine Pamoate (Vistaril) 50 Mg Cap, 50 MG PO QID, #120 CAP 0 Refills Prov:Chapis Pagan MD, R3 09/25/16 Metoclopramide (Reglan) 10 Mg Tab, 10 MG PO QID, #120 TAB 0 Refills Prov:Chapis Pagan MD, R3 09/25/16 Promethazine (Phenergan) 25 Mg Tablet, 25 MG PO Q6H Y for NAUSEA OR VOMITING, # 120 TAB Take scheduled every 6 hours for a couple days, then take as needed Prov:Rocael Vasquez MD, R2 09/01/16 Pyridoxine (B-6) 50 Mg Tab, 25 MG PO Q6HR for nausea, #120 TAB Prov:Rocael Vasquez MD, R2 09/01/16 Sertraline (Sertraline) 50 Mg Tab, 50 MG PO DAILY Y for depression/anxiety, #30 TAB 0 Refills Prov:Ian Wood MD R1 08/27/16 W/O Vit A W/ Fe Carbo Pack (Citranatal 90 Dha Pack) 90-1 & 300 Mg Pack , 1 EA PO DAILY for Nutritional Supplement, #60 PACK 11 Refills 30 day supply. Prov:Aani Holley 06/18/16 Discontinued Scripts Hydroxyzine Pamoate (Vistaril) 50 Mg Cap, 50 MG PO TID Y for NAUSEA OR VOMITING , #60 CAP 0 Refills Prov:Rocael Vasquez MD, R2 09/01/16 Review of Systems Except as stated in HPI: all other systems reviewed are Neg General / Constitutional: No: Fever, Chills Eyes: Visual changes HENT: Headaches Cardiovascular: No: Chest Pain or Discomfort, Palpitations Respiratory: No: Cough, Short of Breath Gastrointestinal: Nausea, Vomiting, Abdominal Pain, Loss of Appetite, No: Diarrhea, Constipation Genitourinary: Pelvic Pain, No: Dysuria, Hematuria, Discharge, Vaginal Bleeding Musculoskeletal: No: Edema Psychiatric: Substance Abuse (Chapis Pagan MD, R3) Physical Exam Narrative GENERAL: Well-nourished, well-developed patient. SKIN: Warm and dry. HEAD: Normocephalic and atraumatic. EYES: No scleral icterus. No injection or drainage. ENT: No nasal drainage noted. Mucous membranes pink. Airway patent. NECK: Supple, trachea midline. No JVD. CARDIOVASCULAR: Regular rate and rhythm without murmurs, gallops, or rubs. RESPIRATORY: Breath sounds equal bilaterally. No accessory muscle use. ABDOMEN/GI: Abdomen soft, moderately tender to palpation in lower abdomen, mildly tender to palpation in RUQ, bowel sounds present Gravid to 25 weeks size GENITOURINARY: External Genitalia: intact and normal in appearance BUS glands: normal Cervix: posterior Dilatation: 0 Effacement: 0 Station: -3 Presentation: Breech Membranes: intact Uterine Contractions: none FHT's: Category: I Baseline: 140 Reactive: + Variability: moderate Decels: none EXTREMITIES: No cyanosis or edema. BACK: Nontender without obvious deformity. Right CVA tenderness. NEUROLOGICAL: Awake and alert. Motor and sensory grossly within normal limits. Normal speech. (Chapis Pagan MD, R3) Data Data Vital Signs Reviewed: Yes (Chapis Pagan MD, R3) MDM Medical Record Reviewed: Yes Narrative Course / MDM 21 year old at 25-4/7 weeks gestation. 1. IUP- Category I tracing, reassuring. 2. Abdominal Pain- will monitor toco for contractions, obtain UA, CBC, IV LR bolus. FFN collected. Cervix is closed. dw Dr. Tracey and Dr. Prasad R1 Addendum: No contractions on toco, FFN negative. UA significant for elevated WBC's, large leuk esterase, occ bacteria. Will treat for acute cystitis with Nitrofurantoin 100mg PO Q12H x 7 days. CBC significant for anemia, continue ferrous sulfate 325mg PO TID as prescribed by outpatient provider. Symptoms improving with IV fluids. Patient states her anxiety is what is bothering her the most and she just ran out of her Klonopin. Will refill Klonopin but advise patient to discuss anxiety further with outpatient provider for further management. Will discharge to home. Follow-up with [facility]. (Chapis Pagan MD, R3) Attending Attestation Patient seen and evaluated with resident under direct supervision, agree with assessment and plan. (Forrest Tracey MD) Diagnosis Diagnosis: Primary Impression: Acute cystitis during Qualified Codes: O23.12 - Infections of bladder in , second trimester Additional Impression: 25 weeks gestation of Disposition: DISCHARGE HOME Condition: Stable Scripts Clonazepam (Klonopin) 0.5 Mg Tab 0.5 MG PO Q12HR for Anxiety and/or Insomnia, #60 TAB Prov: Chapis Pagan MD, R3 10/04/16 Nitrofurantoin Macrocrystal (Nitrofurantoin Macrocrystal) 100 Mg Cap 100 MG PO BID for Infection, #14 CAP 0 Refills Prov: Chapis Pagan MD, R3 10/04/16 Chapis Pagan MD, R3 Oct 04, 2016 10:52 Forrest Tracey MD Oct 04, 2016 14:32
[2016-10-04 11:01] VITALS: BP 101/64; PULSE 64
[2016-10-04 11:08] LABS: HEMATOCRIT 26.9 % (35.0-46.0); MEAN CELL VOLUME 82.7 FL (80.0-100.0); MEAN CORPUSCULAR HEMOGLOBIN 26.1 PG (27.0-34.0); MEAN CORPUSCULAR HGB CONC 31.5 % (32.0-36.0); PLATELET COUNT 277 TH/MM3 (150-450); RED BLOOD COUNT 3.25 MIL/MM3 (4.00-5.30); RED CELL DISTRIBUTION WIDTH 18.8 % (11.6-17.2); REVIEW FLAG FINAL; WHITE BLOOD COUNT 11.3 TH/MM3 (4.0-11.0)
[2016-10-04 11:15] VITALS: RESP 18; TEMP 97.1
[2016-10-04 11:28] LABS: BACTERIA, URINE OCC /hpf; BLOOD, URINE NEG (NEG); GLUCOSE,URINE NEG (NEG); HYALINE CAST, URINE 2 /lpf (RARE); KETONE, URINE NEG (NEG); MUCUS URINE FEW /lpf (OCC); NITRITE,URINE NEG (NEG); SQUAMOUS EPITHELIAL CELL URINE 20 /hpf (0-5); URINE COLOR YELLOW (YELLW/STRAW)
[2016-10-04 11:32] LABS: COMMENT (UR) CULTURE INDICATED; CULTURE IF INDICATED CULTURE INDICATED
[2016-10-04] MEDS ORDERED: NITR1CAP36 PO (11:53)
[2016-10-04] MEDS ORDERED: LACTATED RINGER'S 1000 ML INJ 1,000 ML IV SCH (12:00)
[2016-10-04] MEDS ORDERED: CLON.5 PO (12:02)
[2016-11-14] MEDS ORDERED: GNP150TA PO (14:14)
[2016-11-14] MEDS ORDERED: CITA20TA4 PO (14:28)
[2016-11-14] MEDS ORDERED: CITA10TA4 PO (14:28)
== END 2016-10-04 12:28 | disposition home or self-care (01) ==
LOC: HOBED 10:05
DX: O23.12 Infections of bladder in pregnancy, second trimester (principal); O99.012 Anemia complicating pregnancy, second trimester; O99.342 Other mental disorders complicating pregnancy, second trimester; F39 Unspecified mood [affective] disorder; R51 Headache; R11.2 Nausea with vomiting, unspecified; O99.332 Smoking (tobacco) complicating pregnancy, second trimester; Z3A.25 25 weeks gestation of pregnancy
CPT/HCPCS: 81001; 82731; 85027; 87086; 96360

== ENCOUNTER 2016-10-28 10:45 | Observation (INO) | payer OTHER ==
[~2016-10-28] VITALS: Ht 157.5 cm; Wt 52.0 kg
[~2016-10-28 10:45] MED LIST changes: +NITR1CAP36 PO
[2016-10-28 10:59] VITALS: BP 112/70; PULSE 65
[2016-10-28 11:00] VITALS: RESP 18; TEMP 98.8
[2016-10-28] MEDS ORDERED: ONDANSETRON HCL 4 MG/2 ML VIAL IV ONE (11:00)
[2016-10-28] MEDS ORDERED: PROMETHAZINE INJ 25 MG/ML VIAL IM ONE (11:15)
[2016-10-28 11:33] LABS: HEMATOCRIT 31.4 % (35.0-46.0); MEAN CELL VOLUME 82.1 FL (80.0-100.0); MEAN CORPUSCULAR HEMOGLOBIN 25.9 PG (27.0-34.0); MEAN CORPUSCULAR HGB CONC 31.6 % (32.0-36.0); PLATELET COUNT 402 TH/MM3 (150-450); RED BLOOD COUNT 3.83 MIL/MM3 (4.00-5.30); RED CELL DISTRIBUTION WIDTH 19.7 % (11.6-17.2); REVIEW FLAG FINAL; WHITE BLOOD COUNT 14.5 TH/MM3 (4.0-11.0)
[2016-10-28] MEDS ORDERED: SERTRALINE HCL 50 MG TAB PO PRN (11:45)
[2016-10-28 11:50] LABS: ALT (GPT) 12 U/L (10-53); ANION GAP 11 MEQ/L (5-15); AST (GOT) 11 U/L (15-37); BICARBONATE 21.9 MEQ/L (21.0-32.0); BLOOD UREA NITROGEN 8 MG/DL (7-18); CHLORIDE 106 MEQ/L (98-107); GLOMERULAR FILTRATION RATE 93 ML/MIN (>89); POTASSIUM 3.7 MEQ/L (3.5-5.1); SODIUM (NA) 139 MEQ/L (136-145)
[2016-10-28 11:53] LABS: ALKALINE PHOSPHATASE 77 U/L (45-117); TOTAL BILIRUBIN ADULT 0.8 MG/DL (0.2-1.0)
[2016-10-28] MEDS ORDERED: LACTATED RINGER'S 1000 ML INJ 1,000 ML IV ONE (12:00)
[2016-10-28] MEDS ORDERED: METOCLOPRAMIDE HCL 10 MG/2 ML VIAL IV PUSH ONE (12:00)
[2016-10-28 13:50] LABS: BACTERIA, URINE RARE /hpf; BLOOD, URINE NEG (NEG); COMMENT (UR) CULT NOT INDICATED; CULTURE IF INDICATED CULT NOT INDICATED; GLUCOSE,URINE NEG (NEG); KETONE, URINE 80 mg/dL (NEG); MUCUS URINE FEW /lpf (OCC); NITRITE,URINE NEG (NEG); SQUAMOUS EPITHELIAL CELL URINE 9 /hpf (0-5); URINE COLOR YELLOW (YELLW/STRAW)
[2016-10-28] MEDS ORDERED: ACETAMINOPHEN 325 MG TAB PO PRN (14:15)
[2016-10-28] MEDS ORDERED: SODIUM CHLORIDE 0.9% FLUSH 10 ML FLUSH IV FLUSH PRN (14:15)
[2016-10-28] MEDS ORDERED: METOCLOPRAMIDE HCL 10 MG/2 ML VIAL IV PUSH PRN (14:15)
--- NOTE | 2016-10-28 14:32 | HHI.HP ---
History & Physical H&P HPI HPI Chief Complaint 1 day hx N/V Date Seen: Oct 28, 2016 Time Seen: 11:26 Travel History International Travel<30 Days: No Contact w/Intl Traveler<30Days: No History of Present Illness HPI 21 yo at 29 weeks presents to OB triage with complains of 1 day hx of N/V, associated with chills, and body aches. Pt stated she has had N/V on and off throughout this whole . Denies Fever, diarrhea and dysuria. Denies LOF and vaginal bleeding and contractions. Endorses movement. Pt also stated she consumed marijuana about 2 days ago to help with her sxs. Of note: pt has been seen multiple time throughout this for similar issues of N/V. Weeks Gestation: 29 Para: 2 : 3 Miscarriage: 1 History (Limited) History Past Medical History Narrative Medical Prolonged QT, per chart review Obstetric History Obstetric History at 29 wks. Prior c/s due to HTN. 1 miscarriage. No other complications with prior pregnancies. Pt stated she has had intermittent N/V throughout this . Past Surgical History Narrative Surgical -prior c/s Family History Family History: Negative Social History Alcohol Use: No Tobacco Use: No Substance Abuse: Yes (Pt stated she uses marijuna sometimes to help with her N/ V, last used about 2 days ago amount: 1 joint) Allergies-Medications Allergies-Medications (Allergen,Severity, Reaction): Coded Allergies: doxycycline (Unverified Adverse Reaction, Severe, VOMITING, 09/30/16) Home Meds Active Scripts Clonazepam (Klonopin) 0.5 Mg Tab, 0.5 MG PO Q12HR for Anxiety and/or Insomnia, # 60 TAB Prov:Chapis Pagan MD, R3 10/04/16 Ferrous Sulfate (Ferrous Sulfate) 325 Mg (65 Mg Iron) Tablet, 325 MG PO TIDPC for Nutritional Supplement, #90 TAB 0 Refills Prov:Chapis Pagan MD, R3 09/25/16 Hydroxyzine Pamoate (Vistaril) 50 Mg Cap, 50 MG PO QID, #120 CAP 0 Refills Prov:Chapis Pagan MD, R3 09/25/16 Pyridoxine (B-6) 50 Mg Tab, 25 MG PO Q6HR for nausea, #120 TAB Prov:Rocael Vasquez MD, R2 09/01/16 Sertraline (Sertraline) 50 Mg Tab, 50 MG PO DAILY Y for depression/anxiety, #30 TAB 0 Refills Prov:Ian Wood MD R1 08/27/16 W/O Vit A W/ Fe Carbo Pack (Citranatal 90 Dha Pack) 90-1 & 300 Mg Pack , 1 EA PO DAILY for Nutritional Supplement, #60 PACK 11 Refills 30 day supply. Prov:Anai Holley 06/18/16 Discontinued Scripts Nitrofurantoin Macrocrystal (Nitrofurantoin Macrocrystal) 100 Mg Cap, 100 MG PO BID for Infection, #14 CAP 0 Refills Prov:Chapis Pagan MD, R3 10/04/16 Promethazine Supp (Phenergan Supp) 25 Mg Supp, 25 MG RECTAL Q6H Y for NAUSEA OR VOMITING, #30 SUPP 0 Refills if unable to take PO Prov:Chen Leiva MD R2 09/29/16 Metoclopramide (Reglan) 10 Mg Tab, 10 MG PO QID, #120 TAB 0 Refills Prov:Chapis Pagan MD, R3 09/25/16 Promethazine (Phenergan) 25 Mg Tablet, 25 MG PO Q6H Y for NAUSEA OR VOMITING, # 120 TAB Take scheduled every 6 hours for a couple days, then take as needed Prov:Rocael Vasquez MD, R2 09/01/16 ROS Review of Systems Except as stated in HPI: all other systems reviewed are Neg Physical Exam Physical Exam Vital Signs Date Time Temp Pulse Resp B/P (MAP) Pulse Ox O2 Delivery O2 Flow Rate FiO2 10/28/16 11:00 98.8 18 10/28/16 10:59 65 112/70 (84) Narrative GENERAL: Well-nourished, well-developed patient. SKIN: Warm and dry. HEAD: Normocephalic and atraumatic. EYES: No scleral icterus. No injection or drainage. ENT: No nasal drainage noted. Mucous membranes pink. Airway patent. NECK: Supple, trachea midline. No JVD. CARDIOVASCULAR:Normal S1 and s2. Regular rate and rhythm without murmurs, gallops, or rubs. RESPIRATORY: Breath sounds equal bilaterally. No accessory muscle use. BREASTS: Bilateral exam showed no masses , no retractions, no nipple discharge. ABDOMEN/GI: Abdomen soft, non-tender, bowel sounds present, no rebound, no guarding Gravid to 29 weeks size GENITOURINARY: Membranes: intact Uterine Contractions: none FHT's: Category: 1 Baseline: 140 Reactive: positive Variability: moderate Decels: none EXTREMITIES: No cyanosis or edema. BACK: Nontender without obvious deformity. No CVA tenderness. NEUROLOGICAL: Awake and alert. Motor and sensory grossly within normal limits. Five out of 5 muscle strength in all muscle groups. Normal speech. Data Data Data Vital Signs Reviewed: Yes Orders Orders Vital Signs (Adult) .ON ADMISSION (10/28/16 10:55) ^ Labor Status (10/28/16 10:55) ^ Hydration (10/28/16 10:55) Ondansetron Inj (Zofran Inj) (10/28/16 11:00) Urinalysis - C+S If Indicated (10/28/16 10:56) Drug Screen, Random Urine (10/28/16 10:56) Cbc No Diff, Includes Plts (10/28/16 11:02) Comprehensive Metabolic Panel (10/28/16 11:02) Lipase (10/28/16 11:02) Lactated Ringer's 1000 Ml Inj (Lr 1000 M (10/28/16 12:00) Magnesium (Mg) (10/28/16 11:02) Phosphorus (Po4) (10/28/16 11:02) Promethazine Inj (Phenergan Inj) (10/28/16 11:15) Metoclopramide Inj (Reglan Inj) (10/28/16 11:30) MDM MDM Medical Record Reviewed: Yes Plan 21 yo at 29 wks presents with 1 day hx of N/V. 1. IUP at 29 wks -continue routine OB care -encourage po hydration as tolerated -FHT, cat 1 2. N/V with recent marijuana use - VS: WNL -1 LR IV -Reglan 10mg IV once -c/w home meds except Klonopin (held) -pending labs: CMP, lipase, mag, phosphorous, UA, urine drug screen. update: elevated WBC, other labs normal, urine positive for cannabinoids, urine with ketones will admit for 23hrs for observation. taina Genao Diagnosis Diagnosis: Primary Impression: Nausea and vomiting during Additional Impression: 29 weeks gestation of Gala Ortiz MD R1 Oct 28, 2016 14:32
[2016-10-28] MEDS: LACTATED RINGER'S 1000 ML INJ 1,000 ML IV SCH (15:12)
[2016-10-28] MEDS ORDERED: PILL SPLITTER OTHER PRN (15:45)
[2016-10-28] MEDS: PYRIDOXINE HCL 50 MG TAB PO SCH (15:53)
[2016-10-28 16:08] VITALS: BP 111/51; PULSE 50; RESP 16
[2016-10-28 21:00] VITALS: BP 117/56; PULSE 52; RESP 18; TEMP 98.8
[2016-10-28] MEDS: SODIUM CHLORIDE 0.9% FLUSH 10 ML FLUSH IV FLUSH SCH (21:00)
[2016-10-28 23:31] VITALS: TEMP 98
[2016-10-28 23:32] VITALS: BP 118/63; PULSE 53; RESP 18
[2016-10-29] MEDS: PYRIDOXINE HCL 50 MG TAB PO SCH ×2 (00:27→08:53)
[2016-10-29] MEDS: LACTATED RINGER'S 1000 ML INJ 1,000 ML IV SCH (00:30)
[2016-10-29] MEDS ORDERED: clonazePAM 0.5 MG TAB PO ONE (01:00)
[2016-10-29] MEDS: clonazePAM 0.5 MG TAB PO SCH ×2 (06:00→08:53)
[2016-10-29 06:25] LABS: BICARBONATE 22.5 MEQ/L (21.0-32.0); POTASSIUM 3.5 MEQ/L (3.5-5.1)
--- NOTE | 2016-10-29 08:23 | PD.OB.ANTE ---
Subjective Interval History Pt seen and examined at bedside. Pt stated she woke up 3 times overnight with nausea and anxiety. Vomiting has resolved. Denies fever, CP. Denies LOF, vaginal bleeding or contractions. Pt endorses movement. Antepartum ROS: Reports: New complaints Objective Vital Signs Vital Signs Date Time Temp Pulse Resp B/P (MAP) Pulse Ox O2 Delivery O2 Flow Rate FiO2 10/28/16 23:32 53 18 10/28/16 23:32 118/63 (81) 10/28/16 23:31 98.0 10/28/16 21:00 52 10/28/16 21:00 117/56 (76) 10/28/16 21:00 98.8 18 10/28/16 16:08 50 16 111/51 (71) 10/28/16 11:00 98.8 18 10/28/16 10:59 65 112/70 (84) Lab & Micro Results Test 10/28/16 11:00 10/28/16 12:20 10/29/16 04:59 White Blood Count 14.5 TH/MM3 Red Blood Count 3.83 MIL/MM3 Hemoglobin 9.9 GM/DL Hematocrit 31.4 % Mean Corpuscular Volume 82.1 FL Mean Corpuscular Hemoglobin 25.9 PG Mean Corpuscular Hemoglobin Concent 31.6 % Red Cell Distribution Width 19.7 % Platelet Count 402 TH/MM3 Mean Platelet Volume 7.6 FL Blood Urea Nitrogen 8 MG/DL 7 MG/DL Creatinine 0.77 MG/DL 0.64 MG/DL Random Glucose 95 MG/DL 71 MG/DL Total Protein 7.9 GM/DL Albumin 3.5 GM/DL Calcium Level 8.9 MG/DL 8.2 MG/DL Phosphorus Level 2.6 MG/DL Magnesium Level 2.0 MG/DL Alkaline Phosphatase 77 U/L Aspartate Amino Transf (AST/SGOT) 11 U/L Alanine Aminotransferase (ALT/SGPT) 12 U/L Total Bilirubin 0.8 MG/DL Sodium Level 139 MEQ/L 136 MEQ/L Potassium Level 3.7 MEQ/L 3.5 MEQ/L Chloride Level 106 MEQ/L 105 MEQ/L Carbon Dioxide Level 21.9 MEQ/L 22.5 MEQ/L Anion Gap 11 MEQ/L 9 MEQ/L Estimat Glomerular Filtration Rate 93 ML/MIN 115 ML/MIN Lipase 85 U/L Urine Color YELLOW Urine Turbidity HAZY Urine pH 8.0 Urine Specific [place] 1.023 Urine Protein 30 mg/dL Urine Glucose (UA) NEG mg/dL Urine Ketones 80 mg/dL Urine Occult Blood NEG Urine Nitrite NEG Urine Bilirubin NEG Urine Urobilinogen LESS THAN 2.0 MG/DL Urine Leukocyte Esterase SMALL Urine WBC 2 /hpf Urine Squamous Epithelial Cells 9 /hpf Urine Bacteria RARE /hpf Urine Mucus FEW /lpf Microscopic Urinalysis Comment CULT NOT INDICATED Urine Opiates Screen NEG Urine Barbiturates Screen NEG Urine Amphetamines Screen NEG Urine Benzodiazepines Screen NEG Urine Cocaine Screen NEG Urine Cannabinoids Screen POS Physical Exam GENERAL: Well-nourished, well-developed patient. CARDIOVASCULAR: Regular rate and rhythm without murmurs, gallops, or rubs. RESPIRATORY: Breath sounds equal bilaterally. No accessory muscle use. ABDOMEN/GI: Abdomen soft, non-tender. 29 wks gestation GENITOURINARY: Membranes: intact Uterine Contractions: none FHT's: Category: 1 Baseline: 140 Reactive: positive Variability: moderate Decels: none EXTREMITIES: No cyanosis or edema, non-tender, without signs of DVT. Assessment and Plan Problem List: (1) 29 weeks gestation of ICD Codes: Z3A.29 - 29 weeks gestation of Status: Acute (2) Nausea and vomiting during ICD Codes: O21.9 - Vomiting of , unspecified Status: Acute Assessment and Plan 21 yo at 29/1 admitted for N/V and dehydration. N/V resolved, pt doing well. 1. IUP at 29/1 weeks gestation -Continue routine OB care -Encourage oral hydration -Encourage vitamins - FHT, cat 1 2. N/V associated with recent , resolved -pt hydrated -VS are WNL -tolerating po -script for reglan 10mg TID with 4 refills submitted to pt's pharmacy -plan to be discharge home today, 10/29 -pt to f/u with [facility] in 1-2 wks dw Gala Scott MD R1 Oct 29, 2016 08:23
[2016-10-29] MEDS: SODIUM CHLORIDE 0.9% FLUSH 10 ML FLUSH IV FLUSH SCH (08:53)
[2016-10-29] MEDS ORDERED: MULTIVIT/MIN/PREN/FOL AC/IRON PRENATAL TAB PO SCH (09:00)
[2016-10-29] MEDS ORDERED: REGL10TA5 PO (10:54)
--- NOTE | 2016-10-29 11:05 | HHI.DS ---
Gala Ortiz MD R1 10/29/16 1105: Admission Date Oct 28, 2016 at 14:35 Discharge Date: Oct 29, 2016 Admitting Diagnosis Diagnosis: Brief History 21 yo at 29 weeks presents to OB triage with complains of 1 day hx of N/V, associated with chills, and body aches. Pt stated she has had N/V on and off throughout this whole . Denies Fever, diarrhea and dysuria. Denies LOF and vaginal bleeding and contractions. Endorses movement. Pt also stated she consumed marijuana about 2 days ago to help with her sxs. Of note: pt has been seen multiple time throughout this for similar issues of N/V. Hospital Course Pt admitted fro N/V at 29 wks gestation. Pt was hydrated, vomiting resolved and tolerating PO. Pt Condition on Discharge: Good Discharge Disposition: Discharge Home Discharge Instructions Diet Instructions: As Tolerated, No Restrictions Activities You Can Perform: Regular-No Restrictions Sheridan Genao MD 11/19/16 1715: Collaborating MD Comments Multiple admission for hyperemesis. Agree with discharge plans. Gala Ortiz MD R1 Oct 29, 2016 11:05 Sheridan Genao MD Nov 19, 2016 17:15
[2016-10-31 09:13] LABS: BATH SALTS (MDPV) UR NEG (NEG); ECSTASY (MDMA) UR NEG (NEG); GABAPENTIN UR NEG (NEG); HEROIN (6-ACETYLMORPHINE) UR NEG (NEG); HYDROMORPHONE U NEG (NEG); K2 SPICE UR NEG (NEG); OBMETHADONE UR NEG (NEG); PHENCYCLIDINE URINE NEG (NEG)
[2016-11-14] MEDS ORDERED: GNP150TA PO (14:14)
[2016-11-14] MEDS ORDERED: CITA10TA4 PO (14:28)
[2016-11-14] MEDS ORDERED: CITA20TA4 PO (14:28)
== END 2016-10-29 11:57 | disposition home or self-care (01) ==
LOC: HOBED 10:45 → H2EA 14:35
PROVIDERS: ADMIT Obstetrics & Gynecology Obstetrics; ATTEND Obstetrics & Gynecology Obstetrics
DX: O21.9 Vomiting of pregnancy, unspecified (principal); E86.0 Dehydration; F12.90 Cannabis use, unspecified, uncomplicated; Z3A.29 29 weeks gestation of pregnancy
CPT/HCPCS: 80048; 80053; 80307; 81001; 83690; 83735; 84100; 85027; 96361; 96374; 99285; G0378; G0481; J2765; J7120

== ENCOUNTER 2016-11-26 14:36 | Emergency (ER) | payer OTHER ==
[~2016-11-26 14:36] MED LIST changes: +CITA10TA4 PO; +CITA20TA4 PO; +GNP150TA PO; -NITR1CAP36 PO; -PROM1SUP7 RECTAL; -PROM25TA10 PO
--- NOTE | 2016-11-26 15:27 | PD ---
HPI Travel History International Travel<30 Days: No Contact w/Intl Traveler<30Days: No History of Present Illness HPI 21 yr old A1 at 33/1 weeks presents with 2x history of abdominal pain and diarrhea. She reports that the abdominal pain began yesterday. It is diffuse, intermittent, pressure-like, and sharp. She states that she has 2 episodes of watery non-bloody diarrhea today. Has tried Tylenol with slight improvement. She endorses FUENTES and slight chills. She has been eating well. She denies sick contacts, fever, vomiting, dysuria, URI symptoms and recent use of abx. She denies vaginal bleeding, leakage of fluids, and contractions. She has been receiving her care at [facility]. History Past Medical History Narrative Medical Sleep Apnea HTN Anemia Anxiety Obstetric History Obstetric History A1 1st , 2014 due to preeclampsia and breech presentation - 2nd , at 17weeks Past Surgical History Narrative Surgical Family History Narrative Family History Dad- HTN, Hemophilia Social History Alcohol Use: No Tobacco Use: No (Smoking during beginning of , quit 3 months ago) Substance Abuse: Yes (chronic marijuana use ) Allergies-Medications (Allergen,Severity, Reaction): Coded Allergies: doxycycline (Verified Adverse Reaction, Severe, VOMITING, 11/26/16) Home Meds Active Scripts Citalopram (Citalopram) 20 Mg Tab, 20 MG PO DAILY for Control Depression, #30 TAB 3 Refills Prov:Julián Montalvo MD 11/14/16 Citalopram (Citalopram) 10 Mg Tab, 10 MG PO DAILY for Control Depression, #7 TAB 0 Refills Prov:Julián Montalvo MD 11/14/16 Ranitidine HCl (Gnp Acid Control 150 Maxi) 150 Mg Tab, 1 TAB PO BID, #60 BOTTLE 6 Refills Prov:Anai Holley 11/14/16 Metoclopramide (Reglan) 10 Mg Tab, 10 MG PO TID, #42 TAB 4 Refills Prov:Gala Ortiz MD, R1 10/29/16 Clonazepam (Klonopin) 0.5 Mg Tab, 0.5 MG PO Q12HR for Anxiety and/or Insomnia, # 60 TAB Prov:Chapis Pagan MD, R3 10/04/16 Ferrous Sulfate (Ferrous Sulfate) 325 Mg (65 Mg Iron) Tablet, 325 MG PO TIDPC for Nutritional Supplement, #90 TAB 0 Refills Prov:Chapis Pagan MD, R3 09/25/16 Hydroxyzine Pamoate (Vistaril) 50 Mg Cap, 50 MG PO QID, #120 CAP 0 Refills Prov:Chapis Pagan MD, R3 09/25/16 Pyridoxine (B-6) 50 Mg Tab, 25 MG PO Q6HR for nausea, #120 TAB Prov:Rocael Vasquez MD, R2 09/01/16 Sertraline (Sertraline) 50 Mg Tab, 50 MG PO DAILY Y for depression/anxiety, #30 TAB 0 Refills Prov:Ian Wood MD R1 08/27/16 W/O Vit A W/ Fe Carbo Pack (Citranatal 90 Dha Pack) 90-1 & 300 Mg Pack , 1 EA PO DAILY for Nutritional Supplement, #60 PACK 11 Refills 30 day supply. Prov:Anai Holley 06/18/16 Review of Systems Except as stated in HPI: all other systems reviewed are Neg Physical Exam Narrative GENERAL: Well-nourished, well-developed patient. SKIN: Warm and dry. HEAD: Normocephalic and atraumatic. EYES: No scleral icterus. No injection or drainage. ENT: No nasal drainage noted. Mucous membranes pink. Airway patent. NECK: Supple, trachea midline. CARDIOVASCULAR: Regular rate and rhythm without murmurs, gallops, or rubs. RESPIRATORY: Breath sounds equal bilaterally. No accessory muscle use. ABDOMEN/GI: Abdomen soft, non-distended, voluntarily guarding, diffuse tenderness FHT's: category 1, 120s baseline, reactive, moderate variability EXTREMITIES: No cyanosis or edema. BACK: Nontender without obvious deformity. NEUROLOGICAL: Awake and alert. Motor and sensory grossly within normal limits. Data Data Vital Signs Reviewed: Yes MDM Plan 21 yr old A1 at 33/1 weeks presents with 2x history of abdominal pain and diarrhea. Abdominal US, the appendix was not visualized. The right fallopian tube appears to be dilated with some complex fluid suggestive of hydrosalpinx. Low suspicious for appendicitis based on clinical findings. UA showed mild leukocyte esterases, otherwise, negative FHTs: category 1,baseline 120s, reactive, moderate variability Hx of prolonged QT interval. She recently switch from Klonopin to Zoloft 2 weeks ago for her anxiety. Recommended to talk to PCP about monitoring with EKG while on Zoloft as it can worsen QT interval Tylenol for pain Hydrate regularly by drinking plenty of fluids Return to the ED if symptoms persist Diagnosis Diagnosis: Primary Impression: Abdominal pain in Additional Impression: Diarrhea Disposition: 01 DISCHARGE HOME Condition: Good Rasheeda Rodriguez MD R1 Nov 26, 2016 15:27
--- NOTE | 2016-11-26 15:48 | RADRPT ---
EXAM DATE/TIME: 11/26/2016 15:32 [facility] COMPARISON: No previous studies available for comparison. INDICATIONS : Right lower quadrant pain, appendicitis. MEDICAL HISTORY : Hypertension. 33 weeks . Anemia. SURGICAL HISTORY : section. ENCOUNTER: Initial ACUITY: 3 days PAIN SCORE: 7/10 LOCATION: Right lower quadrant AREA EVALUATED: Right lower quadrant. FINDINGS: A focused ultrasound of the right lower quadrant was performed. The appendix was not visualized. No d efinite free fluid or loculated fluid collections are seen. The right ovary appears to be unremarkabl e. However, it appears that the right fallopian tube is dilated with some fluid. CONCLUSION: 1. The appendix was not visualized. 2. The right fallopian tube appears to be dilated with some complex fluid suggestive of hydrosalpinx. Soy Acharya MD on November 26, 2016 at 15:44 Board Certified Radiologist. This report was verified electronically.
== END 2016-11-26 16:08 | disposition home or self-care (01) ==
LOC: HOBED 14:36
DX: O26.893 Other specified pregnancy related conditions, third trimester (principal); R10.9 Unspecified abdominal pain; R19.7 Diarrhea, unspecified; Z3A.33 33 weeks gestation of pregnancy
CPT/HCPCS: 76705; 99284

== ENCOUNTER → 2016-12-27 | Emergency (ER) | payer OTHER ==
[~2016-12-27] MED LIST changes: +AMOX500C PO; -CLON.5 PO; +FERR325T18 PO; -FERR325T8 PO; +IBUP-232 PO; +OXYC1TAB63 PO; +PROM25TA10 PO; -SERT-132 PO; +ZOFR8TAB PO
== END | disposition home or self-care (01) ==
LOC: HOBED 10:10
DX: O26.893 Other specified pregnancy related conditions, third trimester (principal); Z3A.37 37 weeks gestation of pregnancy; R51 Headache; R03.0 Elevated blood-pressure reading, without diagnosis of hypertension
CPT/HCPCS: 99281

== ENCOUNTER 2016-12-30 08:34 | Inpatient (IN) | payer OTHER ==
[2016-12-30] VITALS (9 sets, daily range): BP systolic 130–141; BP diastolic 66–85; PULSE 50–66; RESP 14–20; TEMP 97.8–98.2; O2SAT 100
[~2016-12-30] VITALS: Ht 157.5 cm; Wt 56.7 kg
[~2016-12-30 08:34] MED LIST changes: -IBUP-232 PO; -OXYC1TAB63 PO; -PROM25TA10 PO; -ZOFR8TAB PO
[2016-12-30] MEDS ORDERED: LACTATED RINGER'S 1000 ML INJ 1,000 ML IV ONE (09:02)
--- NOTE | 2016-12-30 09:05 | HHI.HP ---
History & Physical H&P [employer] Consult (Detail) Patient Name: Payton Simon Unit Number: [id number] Date of : 1995 Patient Status: Registered Clinic Attending Doctor: Oni Bolton II, MD HPI HPI Chief Complaint Patient is a 36-37 week intrauterine previous for repeat C- section Date Seen: Dec 19, 2016 Time Seen: 13:15 Travel History International Travel<30 Days: No Contact w/Intl Traveler<30Days: No Known Affected Area: No History of Present Illness HPI Patient is a 21-year-old white female A1 previous now at 38-1/2 weeks sees [facility] and presents for repeat C/ S. her baby is active done well with this she has been having quite a bit of nausea vomiting throughout . Also the patient is seen OB diagnostics twice weekly for ultrasounds following mild IUGR. She denies bleeding or leakage of fluid or pain at this time. Weeks Gestation: 36 Para: 1 : 3 Miscarriage: 1 History (Limited) History Past Medical History Narrative Medical Depression and anxiety and is been on Zoloft during this and at one point was taking Klonopin as well for this Obstetric History Obstetric History Patient's had 1 for failed induction and one first trimester miscarriage Patient has mild IUGR with this and delivery has been recommended for 38 wks by [facility] Past Surgical History Narrative Surgical 1 Social History Alcohol Use: No Tobacco Use: Yes Substance Abuse: No Allergies-Medications Allergies-Medications (Allergen,Severity, Reaction): Coded Allergies: doxycycline (Verified Adverse Reaction, Severe, VOMITING, 12/10/16) Home Meds Active Scripts Amoxicillin (Amoxicillin) 500 Mg Cap, 500 MG PO TID for Infection, #21 CAP 0 Refills Prov:Anai Holley 12/12/16 Citalopram (Citalopram) 20 Mg Tab, 20 MG PO DAILY for Control Depression, #30 TAB 3 Refills Prov:Julián Montalvo MD 11/14/16 Citalopram (Citalopram) 10 Mg Tab, 10 MG PO DAILY for Control Depression, #7 TAB 0 Refills Prov:Julián Montalvo MD 11/14/16 Ranitidine HCl (Gnp Acid Control 150 Maxi) 150 Mg Tab, 1 TAB PO BID, #60 BOTTLE 6 Refills Prov:Anai Holley 11/14/16 Metoclopramide (Reglan) 10 Mg Tab, 10 MG PO TID, #42 TAB 4 Refills Prov:Gala Ortiz MD, R1 10/29/16 Clonazepam (Klonopin) 0.5 Mg Tab, 0.5 MG PO Q12HR for Anxiety and/or Insomnia, # 60 TAB Prov:Chapis Pagan MD, R3 10/04/16 Ferrous Sulfate (Ferrous Sulfate) 325 Mg (65 Mg Iron) Tablet, 325 MG PO TIDPC for Nutritional Supplement, #90 TAB 0 Refills Prov:Chapis Pagan MD, R3 09/25/16 Hydroxyzine Pamoate (Vistaril) 50 Mg Cap, 50 MG PO QID, #120 CAP 0 Refills Prov:Chapis Pagan MD, R3 09/25/16 Pyridoxine (B-6) 50 Mg Tab, 25 MG PO Q6HR for nausea, #120 TAB Prov:Rocael Vasquez MD, R2 09/01/16 Sertraline (Sertraline) 50 Mg Tab, 50 MG PO DAILY Y for depression/anxiety, #30 TAB 0 Refills Prov:Ian Wood MD R1 08/27/16 W/O Vit A W/ Fe Carbo Pack (Citranatal 90 Dha Pack) 90-1 & 300 Mg Pack , 1 EA PO DAILY for Nutritional Supplement, #60 PACK 11 Refills 30 day supply. Prov:Anai Holley 06/18/16 ROS Review of Systems General / Constitutional: No: Fever, Weight Gain, Chills, Other Eyes: No: Diploplia, Blurred Vision, Visual changes, Pain, Photophobia HENT: No: Headaches, Vertigo, Lightheadedness Cardiovascular: No: Irregular Rhythm, Chest Pain or Discomfort, Palpitations, Tachycardia, Syncope, Varicosities, Edema, Cyanosis Respiratory: No: Cough, Short of Breath, Other Gastrointestinal: No: Nausea, Vomiting, Diarrhea Genitourinary: No: Decreased Urinary Output, Oliguria Musculoskeletal: No: Limited ROM, Weakness, Cramping, Edema, Pain Skin: No Rash, No Itching, No Dryness, No Lumps, No Change in Pigmentation, No Change in Nails, No Alopecia, No Lesions Neurologic: No: Weakness, Dizziness, Syncope, Focal Abnormalities, Coordination Problem, Headache, Slurred Speech, Seizures Psychiatric: Anxiety, Depression, No: Suicidal Ideations, Homicidal Ideation Endocrine: No: Heat Intolerance, Cold Intolerance, Polydipsia, Polyuria, Other Physical Exam Physical Exam Narrative GENERAL: Well-nourished, well-developed patient. SKIN: Warm and dry. HEAD: Normocephalic and atraumatic. EYES: No scleral icterus. No injection or drainage. ENT: No nasal drainage noted. Mucous membranes pink. Airway patent. NECK: Supple, trachea midline. No JVD. CARDIOVASCULAR: Regular rate and rhythm without murmurs, gallops, or rubs. RESPIRATORY: Breath sounds equal bilaterally. No accessory muscle use. BREASTS: Bilateral exam showed no masses , no retractions, no nipple discharge. ABDOMEN/GI: Abdomen soft, non-tender, bowel sounds present, no rebound, no guarding Gravid to [3 6-] weeks size Fundal Height: [3 6-] GENITOURINARY: External Genitalia: intact and normal in appearance BUS glands: [-] Cervix: [post-] Dilatation: [closed-] Effacement: [-0] Station: [-3] Membranes: [intact ] Uterine Contractions: [0-] FHT's: Category: [1-] Baseline: [-133] Reactive: [-yes] Variability: [mod-] Decels: [-0] EXTREMITIES: No cyanosis or edema. BACK: Nontender without obvious deformity. No CVA tenderness. NEUROLOGICAL: Awake and alert. Motor and sensory grossly within normal limits. Five out of 5 muscle strength in all muscle groups. Normal speech. Data Data MDM [facility] Interpretation(s) Patient is a 21-year-old white female A1 previous now at 38 weeks presents for . [facility] and has a maternal medicine for ultrasounds 2 times a week for IUGR. Maternal medicine recommends delivery at 38 weeks for IUGR, will have repeat C- section scheduled for 12/30/16 Plan Plan to repeat delivery at 38 weeks in this patient with a previous C- section & IUGR with this Diagnosis: previous , IUGR Disposition: ADMIT Condition: Stable Oni Bolton II, MD Dec 30, 2016 13:48 Oni Bolton II, MD Dec 30, 2016 09:05
[2016-12-30] MEDS ORDERED: ACETAMINOPHEN 1000 MG/100 ML 100 ML IV ONE ×2 (09:13→12:15)
[2016-12-30] MEDS ORDERED: LACTATED RINGER'S 1000 ML INJ 1,000 ML IV SCH ×2 (09:32→17:03)
[2016-12-30] MEDS ORDERED: ZOFR8TAB PO (09:38)
[2016-12-30] MEDS ORDERED: PROM25TA10 PO (09:38)
[2016-12-30] MEDS ORDERED: BUPIVACAINE HCL PF 0.5% 30 ML VIAL ONE (09:57)
[2016-12-30] MEDS ORDERED: DEXAMETHASONE SOD PHOS PF 10 MG/ML VIAL ONE (09:57)
[2016-12-30] MEDS ORDERED: BUPRENORPHINE HCL 0.3 MG/1 ML VIAL ONE (09:58)
[2016-12-30 10:01] LABS: BASOPHIL # 0.1 TH/MM3 (0-0.2); EOSINOPHIL # 0.1 TH/MM3 (0-0.4); EOSINOPHIL % 0.8 % (0.0-4.0); HEMATOCRIT 34.7 % (35.0-46.0); HEMO FLAGS DIFF FINAL; LYMPH % 16.6 % (9.0-44.0); LYMPHOCYTE # 2.3 TH/MM3 (1.0-4.8); MEAN CELL VOLUME 81.5 FL (80.0-100.0); MEAN CORPUSCULAR HEMOGLOBIN 25.8 PG (27.0-34.0); MEAN CORPUSCULAR HGB CONC 31.6 % (32.0-36.0); MONO % 3.6 % (0.0-8.0); PLATELET COUNT 342 TH/MM3 (150-450); RED BLOOD COUNT 4.25 MIL/MM3 (4.00-5.30); RED CELL DISTRIBUTION WIDTH 18.4 % (11.6-17.2); WHITE BLOOD COUNT 14.1 TH/MM3 (4.0-11.0)
[2016-12-30] MEDS ORDERED: ceFAZolin 2 GM PREMIX 50 ML IV SCH (10:15)
[2016-12-30] MEDS ORDERED: SODIUM CHLORIDE 0.9% 20 ML VIAL ONE (10:19)
[2016-12-30] MEDS ORDERED: EPIDURAL-NALOXONE HCL 0.4 MG/ML AMP IV PUSH PRN (10:30)
[2016-12-30] MEDS ORDERED: EPIDURAL-DO NOT ADMINISTER ANTICOAGULANTS PRN (10:30)
[2016-12-30] MEDS ORDERED: EPIDURAL-DIPHENHYDRAMINE HCL 50 MG CAP PO PRN (10:30)
[2016-12-30] MEDS ORDERED: EPIDURAL-NO SYSTEMIC NARCOTICS PRN (10:30)
[2016-12-30] MEDS ORDERED: EPIDURAL-DIPHENHYDRAMINE HCL 50 MG/ML VIAL IV PUSH PRN (10:30)
[2016-12-30] MEDS ORDERED: CITRIC ACID-SODIUM CITRATE LIQ 30 ML UDC PO SCH (10:45)
[2016-12-30 11:33] LABS: BLOOD, URINE NEG (NEG); GLUCOSE,URINE NEG (NEG); KETONE, URINE NEG (NEG); NITRITE,URINE NEG (NEG); URINE COLOR YELLOW (YELLW/STRAW)
[2016-12-30 11:38] LABS: MUCUS URINE MOD /lpf (OCC); RBC, URINE 0-3 /hpf (0-3); SQUAMOUS EPITHELIAL CELL URINE > 8 /hpf (0-5)
[2016-12-30 11:39] LABS: BACTERIA, URINE FEW /hpf; COMMENT (UR) CULT NOT INDICATED; CULTURE IF INDICATED CULT NOT INDICATED
[2016-12-30 11:53] LABS: BLOOD GAS BASE EXCESS -2.4 mmol/L (-2-2); BLOOD GAS O2 HGB SATURATION 18 % (90-100); CORD BLOOD GAS HCO3 24 mmol/L (21-29); CORD BLOOD GAS PCO2 55 mmHG (34-78); CORD BLOOD GAS PH 7.26 (7.14-7.42); CORD BLOOD GAS PO2 14 mmHG (3.0-40.0); DRAW SITE CORD BLOOD; STAT NO
[2016-12-30] MEDS ORDERED: KETOROLAC TROMETHAMINE 60 MG/2 ML (IM) VIAL IM PRN (12:15)
[2016-12-30] MEDS ORDERED: OXYTOCIN 30 UNITS-500ML PREMIX 500 ML IV ONE (12:15)
[2016-12-30] MEDS ORDERED: oxyCODONE/ACETAMINOPHEN 5 MG/325 MG TAB PO PRN (12:15)
[2016-12-30] MEDS ORDERED: ZOLPIDEM TARTRATE 5 MG TAB PO PRN (12:15)
[2016-12-30] MEDS ORDERED: ONDANSETRON HCL 4 MG/2 ML VIAL IV PUSH PRN (12:15)
[2016-12-30] MEDS ORDERED: ACETAMINOPHEN 325 MG TAB PO PRN (12:15)
[2016-12-30] MEDS ORDERED: SIMETHICONE 80 MG CHEWABLE TAB PO PRN (12:15)
[2016-12-30] MEDS ORDERED: DOCUSATE SODIUM 50 MG/SENNA 8.6 MG TAB PO PRN (12:15)
[2016-12-30] MEDS ORDERED: SODIUM CHLORIDE 0.9% FLUSH 10 ML FLUSH IV FLUSH PRN (12:15)
--- NOTE | 2016-12-30 13:02 | MP ---
cc: DREW BOLTON MD DATE OF SURGERY: 12/30/2016 PREOPERATIVE DIAGNOSIS 38-week intrauterine , previous with IUGR and recommended delivery at 38-weeks by maternal medicine. POSTOPERATIVE DIAGNOSIS 38-week intrauterine , previous with IUGR and recommended delivery at 38-weeks by maternal medicine. PROCEDURE PERFORMED Repeat low transverse section. SURGEON Dr. Bolton. SELF PAY COLLECTOR [facility], [facility]. ANESTHESIA Spinal. PREOPERATIVE NOTE The patient is a 21-year-old white female, G3, P1, A1, a previous at 38 and 1/2 weeks, who has diagnosed IUGR and followed by maternal medicine. The recommendation was delivery at 38-weeks. The patient now for repeat . She does not want a attempt. PROCEDURE The patient was taken to the operating room and placed in the supine position on the operating table. After adequate spinal anesthesia was administered, she was prepped and draped for abdominal surgery. A previous Pfannenstiel incision was excised out and cast off. Incision was carried to the fascia sharply and the fascia dissected laterally off the rectus muscle. The peritoneal cavity was entered sharply and the incision extended superiorly and inferiorly with care used to avoid the bladder. The incision stretched open, the bladder blade placed in lower incision and the visceral peritoneum reflected off the lower uterine segment and placed on the bladder blade. Transverse hysterotomy was made and extended bilaterally and clear fluid noted. Baby was in a vertex presentation and was delivered at 10:55 a.m. Apgars 8 and 8, weight 2410 grams, 5 pounds 5 ounces. Delayed cord clamping was done. Cord gas was obtained 7.26. Cord blood obtained. Placenta was manually extracted and sent to pathology. The uterus exteriorized. Hysterotomy was closed in running layer of Chromic followed by imbricating suture of same and hemostasis was achieved with a couple of stick ties of Chromic. The bladder was reapproximated using running layer of 2-0 Vicryl. The uterus was elevated and blood was suctioned from cul-de-sac and gutters and the uterus replaced in peritoneal cavity. The parietal peritoneum then closed in running layer of 2-0 Vicryl. The muscle reapproximated with stick ties of Chromic and Vicryl. The fascia closed in running layer of 0-Vicryl. Subcutaneous tissue was reapproximated with a running 3-0 plain gut suture and the skin was closed with 3-0 Monocryl subcuticular stitch. Pressure dressing was applied. The sponge and needle count were correct x2. There were no complications. The patient was taken to recovery in stable condition. MD SAMUEL Rudd/ANJALI /12:12 PM /12:47 PM
[2016-12-30] MEDS: IBUPROFEN 600 MG TAB PO PRN (18:45)
[2016-12-30] MEDS ORDERED: SODIUM CHLORIDE 0.9% FLUSH 10 ML FLUSH IV FLUSH SCH (21:00)
[2016-12-30] MEDS ORDERED: OXYTOCIN 30 UNITS-500ML PREMIX 500 ML IV PRN (22:15)
[2016-12-30] MEDS: oxyCODONE/ACETAMINOPHEN 5 MG/325 MG TAB PO PRN (23:24)
[2016-12-31] VITALS (10 sets, daily range): BP systolic 119–140; BP diastolic 71–88; PULSE 49–56; RESP 16–21; TEMP 98–98.8; O2SAT 98–100
[2016-12-31] MEDS: IBUPROFEN 600 MG TAB PO PRN ×4 (04:15→23:19)
[2016-12-31] MEDS: oxyCODONE/ACETAMINOPHEN 5 MG/325 MG TAB PO PRN ×5 (04:15→23:18)
[2016-12-31 06:03] LABS: AUTOMATED NEUTROPHIL # 21.5 TH/MM3 (1.8-7.7); BASOPHIL % 0.1 % (0.0-2.0); HEMATOCRIT 21.2 % (35.0-46.0); LYMPHOCYTE # 1.4 TH/MM3 (1.0-4.8); MEAN CELL VOLUME 79.8 FL (80.0-100.0); MEAN CORPUSCULAR HEMOGLOBIN 24.9 PG (27.0-34.0); MEAN CORPUSCULAR HGB CONC 31.2 % (32.0-36.0); MONO % 3.4 % (0.0-8.0); NEUT % 90.5 % (16.0-70.0); PLATELET COUNT 296 TH/MM3 (150-450); RED BLOOD COUNT 2.66 MIL/MM3 (4.00-5.30); RED CELL DISTRIBUTION WIDTH 17.9 % (11.6-17.2); WHITE BLOOD COUNT 23.8 TH/MM3 (4.0-11.0)
[2016-12-31 06:04] LABS: HEMO FLAGS DIFF FINAL
--- NOTE | 2016-12-31 07:58 | HHI.OB ---
Subjective Post Operative Day: 1 Remarks Day 1 status post section scheduled afebrile vital signs stable Patient doing well, bleeding decreased, tolerating diet, ambulating somewhat. She is a little bit dizzy when she is up and around. Postoperative hemoglobin 6.6 Objective Vitals/I&O Vital Signs Date Time Temp Pulse Resp B/P (MAP) Pulse Ox O2 Delivery O2 Flow Rate FiO2 12/31/16 03:52 16 12/31/16 00:00 98.0 52 18 12/30/16 20:00 98.1 60 20 130/85 (100) 12/30/16 15:12 20 12/30/16 14:48 19 12/30/16 12:45 66 20 141/66 (91) 100 12/30/16 12:44 98.2 12/30/16 12:37 100 12/30/16 12:36 53 12/30/16 12:36 16 12/30/16 12:36 135/67 (89) 12/30/16 12:26 140/77 (98) 12/30/16 12:26 18 12/30/16 12:26 61 14 100 12/30/16 12:10 97.8 50 16 138/79 (98) 100 Result Diagram: 12/31/16 0428 Objective Remarks GENERAL: Well-nourished, well-developed patient. CARDIOVASCULAR: Regular rate and rhythm without murmurs, gallops, or rubs. RESPIRATORY: Breath sounds equal bilaterally. No accessory muscle use. ABDOMEN/GI: Abdomen soft, non-tender, bowel sounds present. Incision: Clean, dry and intact. Fundus: Firm, non-tender at umbilicus. GENITOURINARY: Light to moderate bleeding. EXTREMITIES: No cyanosis or edema, non-tender, without signs of DVT. Medications and IVs Current Medications Medications (Trade) Dose Ordered Sig/Viviana Route Start Time Stop Time Status Last Admin Lactated Ringer's 1,000 ml @ 100 mls/hr Q10H IV 12/30/16 17:03 12/31/16 13:02 12/30/16 21:45 Oxytocin 500 ml @ 100 mls/hr UNSCH X1 PRN IV 12/30/16 22:15 12/31/16 22:14 12/30/16 13:44 (NS Flush) 2 ml BID IV FLUSH 12/30/16 21:00 (NS Flush) 2 ml UNSCH PRN IV FLUSH 12/30/16 12:15 (Mylicon Chew) 80 mg QID PRN PO 12/30/16 12:15 (Tylenol) 650 mg Q6H PRN PO 12/30/16 12:15 12/30/16 18:44 (Motrin) 600 mg Q6H PRN PO 12/30/16 12:15 12/31/16 04:15 (Toradol Inj) 60 mg UNSCH X1 PRN IM 12/30/16 12:15 12/31/16 12:14 (Percocet 5-325 Mg) 1 tab Q4H PRN PO 12/30/16 12:15 (Percocet 5-325 Mg) 2 tab Q4H PRN PO 12/30/16 12:15 12/31/16 04:15 Cefazolin Sodium 1000 mg/Sodium Chloride 100 ml @ 200 mls/hr Q8H IV 12/30/16 18:00 12/31/16 10:29 12/31/16 02:07 (Rossy-Colace) 2 tab Q12H PRN PO 12/30/16 12:15 (Ambien) 5 mg HS PRN PO 12/30/16 12:15 (M-M-R Ii Inj) 0.5 ml ONCE ONCE SQ 12/31/16 16:00 12/31/16 16:01 (Boostrix Inj) 0.5 ml ONCE ONCE IM 12/31/16 16:00 12/31/16 16:01 (Zofran Inj) 4 mg Q6H PRN IV PUSH 12/30/16 12:15 12/30/16 16:59 Miscellaneous Information NO SYSTEMIC NARCOTICS TO BE GIVEN FO... UNSCH PRN .XX 12/30/16 10:30 12/31/16 10:29 (Narcan Inj) 0.4 mg UNSCH PRN IV PUSH 12/30/16 10:30 12/31/16 10:29 (Benadryl Inj) 25 mg Q6H PRN IV PUSH 12/30/16 10:30 12/31/16 10:29 (Benadryl) 50 mg Q6H PRN PO 12/30/16 10:30 12/31/16 10:29 Miscellaneous Information ALL NURSING DEPARTMENTS UNSCH PRN .XX 12/30/16 10:30 12/31/16 10:29 Assessment/Plan Assessment and Plan Postoperative day 1 status post section scheduled as a repeat Postoperative anemia with hemoglobin 6.6 hematocrit 21--patient did not have excessive blood loss time of surgery. But has bled moderate lochia Plan is to transfuse 2 units of blood today check posttransfusion crit Oni Bolton II, MD Dec 31, 2016 07:58
[2016-12-31] MEDS ORDERED: SODIUM CHLOR 0.9% 250 ML INJ 250 ML IV ONE (08:15)
[2016-12-31] MEDS ORDERED: diphenhydrAMINE HCL 25 MG CAP PO PRN (08:15)
[2016-12-31] MEDS ORDERED: ACETAMINOPHEN 325 MG TAB PO PRN (08:15)
[2016-12-31] MEDS ORDERED: MEASLES, MUMPS, RUBELLA VACCINE 0.5 ML VIAL SQ ONE (16:00)
[2016-12-31] MEDS ORDERED: DIPHTH/TETANUS/ACEL PERTUSSIS (BOOSTER) 0.5 ML VIAL/PFS IM ONE (16:00)
[2016-12-31 21:37] LABS: HEMATOCRIT 26.7 % (35.0-46.0); MEAN CELL VOLUME 78.7 FL (80.0-100.0); MEAN CORPUSCULAR HEMOGLOBIN 25.4 PG (27.0-34.0); MEAN CORPUSCULAR HGB CONC 32.3 % (32.0-36.0); PLATELET COUNT 266 TH/MM3 (150-450); RED BLOOD COUNT 3.39 MIL/MM3 (4.00-5.30); RED CELL DISTRIBUTION WIDTH 17.7 % (11.6-17.2); REVIEW FLAG FINAL
[2017-01-01] MEDS: oxyCODONE/ACETAMINOPHEN 5 MG/325 MG TAB PO PRN ×3 (04:06→12:13)
[2017-01-01] MEDS: IBUPROFEN 600 MG TAB PO PRN (08:16)
[2017-01-01] MEDS ORDERED: DIPHTH/TETANUS/ACEL PERTUSSIS (BOOSTER) 0.5 ML VIAL/PFS IM ONE (09:15)
--- NOTE | 2017-01-01 09:58 | HHI.OB ---
Subjective Post Operative Day: 2 Remarks Patient is a 21-year-old delivered at 38 weeks and 0 days. Patient is day 2 after repeat scheduled . Patient's pain is the same. Patient reports eating and drinking without any nausea or vomiting. Patient reports minimal bleeding. Patient has not passed gas or bowel movements. Patient is walking without lower extremity pain or shortness of breath. Patient reports desire for contraception through her outpatient provider and both breast -feeding and formula-feeding. Objective Vitals/I&O Vital Signs Date Time Temp Pulse Resp B/P (MAP) Pulse Ox O2 Delivery O2 Flow Rate FiO2 12/31/16 19:55 98.2 56 18 139/88 (105) 12/31/16 18:26 98.8 54 20 131/76 99 12/31/16 15:12 98.1 49 20 119/78 100 12/31/16 14:55 98.1 51 21 140/82 98 12/31/16 14:53 98.1 51 21 140/82 98 12/31/16 12:01 98.1 54 20 122/75 100 12/31/16 11:48 98.2 54 20 123/71 100 Result Diagram: 12/31/162116 Objective Remarks GENERAL: Well-nourished, well-developed patient. CARDIOVASCULAR: Regular rate and rhythm without murmurs, gallops, or rubs. RESPIRATORY: Breath sounds equal bilaterally. No accessory muscle use. ABDOMEN/GI: Abdomen soft, non-tender, bowel sounds present. Incision: Clean, dry and intact. Fundus: Firm, non-tender at umbilicus. GENITOURINARY: Light to moderate bleeding. EXTREMITIES: No cyanosis or edema, non-tender, without signs of DVT. Medications and IVs Current Medications Medications (Trade) Dose Ordered Sig/Viviana Route Start Time Stop Time Status Last Admin (NS Flush) 2 ml BID IV FLUSH 12/30/16 21:00 (NS Flush) 2 ml UNSCH PRN IV FLUSH 12/30/16 12:15 (Mylicon Chew) 80 mg QID PRN PO 12/30/16 12:15 12/31/16 18:45 (Tylenol) 650 mg Q6H PRN PO 12/30/16 12:15 12/30/16 18:44 (Motrin) 600 mg Q6H PRN PO 12/30/16 12:15 01/01/17 08:16 (Percocet 5-325 Mg) 1 tab Q4H PRN PO 12/30/16 12:15 (Percocet 5-325 Mg) 2 tab Q4H PRN PO 12/30/16 12:15 01/01/17 08:16 (Rossy-Colace) 2 tab Q12H PRN PO 12/30/16 12:15 01/01/17 04:06 (Ambien) 5 mg HS PRN PO 12/30/16 12:15 (Zofran Inj) 4 mg Q6H PRN IV PUSH 12/30/16 12:15 12/30/16 16:59 (Tylenol) 650 mg Q4H PRN PO 12/31/16 08:15 (Benadryl) 25 mg Q4H PRN PO 12/31/16 08:15 Assessment/Plan Problem List: (1) S/P repeat low transverse ICD Codes: Z98.891 - History of uterine scar from previous surgery Assessment and Plan Patient is a 21-year-old delivered at 38 weeks and 0 days. Patient is day 2 after repeat scheduled . Patient was counseled to do 6 weeks of pelvic rest. Patient was counseled to follow up in 1 and 6 weeks. Patient requested follow-up and contraception through her outpatient provider. 1. Routine postop/ care --AF VSS --Continue routine care --Motrin and Percocet when necessary for pain --Encourage OOB --Pelvic rest for 6 weeks will need follow-up appointment at that time. Follow- up for one week incision check. --Contraception: Patient will arrange to her outpatient provider --Anticipate discharge tomorrow or today 2. Postoperative anemia with hemoglobin 6.6 hematocrit 21--patient did not have excessive blood loss time of surgery. But has bled with moderate lochia. --patient received transfusion of 2 units of blood yesterday. --posttransfusion H&H 8.6/26.7 s/d/w Dr. Prince and Dr. Tanner King,Vijay Romeo MD R2 Jan 01, 2017 09:58
[2017-01-01 11:30] VITALS: BP_SYST 121; BP_SYST 125; BP_DIAS 67; BP_DIAS 78; PULSE 87; PULSE 88; RESP 20; TEMP 98; O2SAT 98
[2017-01-01] MEDS ORDERED: OXYC1TAB63 PO (12:03)
[2017-01-01] MEDS ORDERED: IBUP-232 PO (12:03)
--- NOTE | 2017-01-01 12:04 | HHI.DCPOC ---
Discharge Care Plan Diagnosis: (1) S/P repeat low transverse (2) Status post Report Symptoms to Your Doctor -Temperature above 100.5 degrees -Redness, of incision or excessive or foul smelling drainage -Unusual pain or calf pain -Increased vaginal bleeding -Painful or difficulty urinating -Feelings of extreme sadness or anxiety after 2 weeks Goals to Promote Your Health * To prevent worsening of your condition and complications, please follow-up with your doctor within 1 week for an incision check and again within 6 weeks for general checkup. Please take medications as prescribed. * To maintain your health at the optimal level, please follow medical recommendations. Directions to Meet Your Goals Take your medications as prescribed Follow your dietary instruction Follow activity as directed Ensure plenty of rest for recovery Drink fluids for hydration Keep your appointments as scheduled Take your immunizations and boosters as scheduled If your symptoms worsen call your PCP, if no PCP go to Urgent Care Center or Emergency Room Smoking is Dangerous to Your Health. Avoid second hand smoke Call the 24-hour crisis hotline for domestic abuse at Vijay King MD R2 Jan 01, 2017 12:04
== END 2017-01-01 15:57 | disposition home or self-care (01) | DRG 765 ==
LOC: H2EB 08:34 → H1EA 13:18
PROVIDERS: ADMIT Obstetrics & Gynecology Maternal & Fetal Medicine; ATTEND Obstetrics & Gynecology Maternal & Fetal Medicine
PROC: 10D00Z1 Extraction of Products of Conception, Low, Open Approach (ICD-10-PCS; principal; 2016-12-30)
PROC: 30253N1 (ICD-10-PCS; 2016-12-30)
DX: O34.219 Maternal care for unspecified type scar from previous cesarean delivery (principal); O36.5930 Maternal care for other known or suspected poor fetal growth, third trimester, not applicable or unspecified; Z37.0 Single live birth; O99.02 Anemia complicating childbirth; D64.9 Anemia, unspecified; Z3A.38 38 weeks gestation of pregnancy; Z72.0 Tobacco use
CPT/HCPCS: 36430; 59025; 80307; 81001; 82805; 85025; 85027; 86077; 86850; 86870; 86900; 86901; 86920; 86922; 88307; 90715; J0131; J0592; J0690; J1100; J2405; J2590; J7050; J7120; P9016

== ENCOUNTER 2017-05-04 12:42 | Emergency (ER) | payer OTHER ==
[~2017-05-04] VITALS: Ht 157.5 cm; Wt 49.5 kg
[~2017-05-04 12:42] MED LIST changes: +IBUP-232 PO; +OXYC1TAB63 PO; +PROM25TA10 PO; +ZOFR8TAB PO
[2017-05-04 12:50] VITALS: BP 148/73; PULSE 120; RESP 18; TEMP 99.5; O2SAT 100
[2017-05-04 12:55] VITALS: BP 148/73; PULSE 120; RESP 18; TEMP 99.5; O2SAT 100
[2017-05-04] MEDS ORDERED: LABE100T2 PO (15:15)
[2017-05-04] MEDS ORDERED: FERR325T18 PO (15:15)
[2017-05-04] MEDS ORDERED: PRED20 PO (15:41)
[2017-05-04] MEDS ORDERED: NAPR500 PO (15:41)
[2017-05-04] MEDS ORDERED: VENTAER INH (15:41)
[2017-05-04] MEDS ORDERED: AUGM875T3 PO (15:41)
--- NOTE | 2017-05-04 15:42 | PD ---
HPI Chief Complaint: Cold / Flu Symptoms Time Seen by Provider: 15:18 Travel History International Travel<30 days: No Contact w/Intl Traveler<30days: No Traveled to known affect area: No History of Present Illness HPI 21-year-old female here with productive cough, colored sputum, subjective fevers , reported intermittent wheezing times one week. She reports her child was recently diagnosed with whooping cough. Symptom severity is moderate. No aggravating or alleviating factors. Patient denies chest pain or shortness of breath. She also reports right sided upper dental pain. PFSH Past Medical History Hx Anticoagulant Therapy: No Anemia: Yes Cardiovascular Problems: Yes ("LONG CT INTERVAL") Chemotherapy: No Cerebrovascular Accident: No Diabetes: No Diminished Hearing: No (NEEDS TUBES IN EARS) Hypertension: Yes Respiratory: No Sleep Apnea: Yes ?: Not Menopausal: Yes : 2 Para: 1 Miscarriage: 1 Dilation and Curettage (D&C): No Past Surgical History Section: Yes Social History Alcohol Use: No Tobacco Use: Yes (/2 PPD) Substance Use: No Allergies-Medications (Allergen,Severity, Reaction): Coded Allergies: doxycycline (Verified Adverse Reaction, Severe, THROAT SWELLS, 05/04/17) Reported Meds & Prescriptions Reported Meds & Active Scripts Active Reported Ferrous Sulfate 325 Mg (65 Mg Iron) Tablet 325 Mg PO DAILY Labetalol (Labetalol HCl) 100 Mg Tab 100 Mg PO BID Review of Systems General / Constitutional: Positive: Fever Eyes: No: Visual changes HENT: No: Headaches Cardiovascular: No: Chest Pain or Discomfort Respiratory: Positive: Cough, Wheezing Gastrointestinal: No: Abdominal Pain Genitourinary: No: Dysuria Musculoskeletal: No: Pain Physical Exam Narrative GENERAL: Alert and well-appearing 21-year-old female. Hoarse voice SKIN: Warm and dry. HEAD: Normocephalic. EYES: No injection or drainage. NECK: Supple CARDIOVASCULAR: Regular rate and rhythm. No murmur appreciated RESPIRATORY: Breath sounds equal bilaterally. No accessory muscle use. Rhonchorous cough GASTROINTESTINAL: Abdomen soft, non-tender, nondistended. MUSCULOSKELETAL: No cyanosis, or edema. BACK: Nontender without obvious deformity. No CVA tenderness. Data Data Last Documented VS Vital Signs Date Time Temp Pulse Resp B/P (MAP) Pulse Ox O2 Delivery O2 Flow Rate FiO2 05/04/17 12:55 99.5 120 18 148/73 (98) 100 Room Air MDM Medical Decision Making Medical Screen Exam Complete: Yes Emergency Medical Condition: Yes Differential Diagnosis Bronchitis, pneumonia, influenza Narrative Course 21-year-old female here with reported productive cough and wheezing. She also has a dental abscess of the right upper molar. She has a rhonchorous cough. No respiratory distress. Vital signs are stable. Nontoxic appearing. She'll be treated with Augmentin, prednisone, albuterol. She was instructed to follow- up with her primary doctor. Diagnosis Primary Impression: Bronchitis Additional Impression: Dental abscess Referrals: [facility] Dentist Additional Instructions: Medication as directed. Follow-up with the is a clinic. Follow-up with the dentist. Return if he developed new or worsening symptoms. Scripts Albuterol 18 GM Inh (Ventolin Hfa 18 GM Inh) 90 Mcg/Act Aer 2 PUFF INH Q4-6H Y for SHORTNESS OF BREATH, #1 INHALER 0 Refills Prov: Shelbie Dutton 05/04/17 Prednisone (Prednisone) 20 Mg Tab 40 MG PO DAILY, #10 TAB 0 Refills Take 40 mg (2 tablets) daily for 5 days Prov: Shelbie Dutton 05/04/17 Amoxicillin-Clavulanate (Augmentin) 875-125 Mg Tab 1 TAB PO BID for Infection, #20 TAB 0 Refills Prov: Shelbie Dutton 05/04/17 Disposition: 01 DISCHARGE HOME Condition: Stable Shelbie Dutton May 04, 2017 15:42
[2017-05-04 15:44] VITALS: PULSE 84; RESP 17; O2SAT 100
== END 2017-05-04 15:55 | disposition home or self-care (01) ==
LOC: PHED 12:42 → PHEFT 15:55
DX: J40 Bronchitis, not specified as acute or chronic (principal); K04.7 Periapical abscess without sinus; D64.9 Anemia, unspecified; I10 Essential (primary) hypertension; F17.200 Nicotine dependence, unspecified, uncomplicated; Z79.899 Other long term (current) drug therapy; Z88.8 Allergy status to other drugs, medicaments and biological substances
CPT/HCPCS: 99284

== ENCOUNTER 2017-06-19 17:53 | Emergency (ER) | payer OTHER ==
[~2017-06-19] VITALS: Ht 157.5 cm; Wt 49.2 kg
[~2017-06-19 17:53] MED LIST changes: -AMOX500C PO; +AUGM875T3 PO; -B-650TAB PO; -CITA10TA4 PO; -CITA20TA4 PO; -GNP150TA PO; -IBUP-232 PO; +LABE100T2 PO; -OXYC1TAB63 PO; +PRED20 PO; -PREN1MIS11 PO; -PROM25TA10 PO; -REGL10TA5 PO; +VENTAER INH; -VIST50CA PO; -ZOFR8TAB PO
[2017-06-19 17:58] VITALS: BP 156/76; PULSE 74; RESP 18; TEMP 98.6; O2SAT 100
[2017-06-19] MEDS ORDERED: predniSONE 20 MG TAB PO ONE (19:00)
[2017-06-19] MEDS ORDERED: KETOROLAC TROMETHAMINE 60 MG/2 ML (IM) VIAL IM ONE (19:00)
--- NOTE | 2017-06-19 19:10 | PD ---
HPI Chief Complaint: Back/ Neck Pain or Injury Time Seen by Provider: 18:37 Travel History International Travel<30 days: No Contact w/Intl Traveler<30days: No Traveled to known affect area: No History of Present Illness HPI 21-year-old female with a history of chronic back pain presents emergency department complaining of low back pain and right knee knee pain. Patient states that her back pain started hurting a few days ago while at work. Patient states that movement increases her pain and rest decreases her pain. Patient states that the pain has occasional "stretching and pulling" pain. Denies radiation of pain. Patient points to the lower lumbar region as the location of her low back pain. Says she has used [id number] medications with some relief. She denies any trauma, fever, chills, IV drug use, loss of bowel or bladder function, saddle anesthesia. Of note, patient says that she fell out of a second floor when she was 1 years old. She has had chronic back pain entire life. Says his pain is characteristic of her previous episodes of pain. Her right knee pain is located behind the patella and is "deep" in the knee. Patient says that she has occasional shooting pain behind the kneecap. Says movement increases her pain and rest decreases. Denies radiation of pain. Denies any clicking or popping. Says she does have occasional "giving out" of her knee but denies any falls or trauma to the knee. Denies any numbness or tingling. PFSH Past Medical History Hx Anticoagulant Therapy: No Anemia: Yes Cardiovascular Problems: Yes ("LONG ID INTERVAL") Chemotherapy: No Cerebrovascular Accident: No Diabetes: No Diminished Hearing: No (NEEDS TUBES IN EARS) Hypertension: Yes Respiratory: No Sleep Apnea: Yes Tetanus Vaccination: < 5 Years ?: Not LMP: 05/30/2017 Menopausal: Yes : 2 Para: 1 Miscarriage: 1 Dilation and Curettage (D&C): No Past Surgical History Section: Yes Social History Alcohol Use: No Tobacco Use: Yes (1/2 PPD) Substance Use: No Allergies-Medications (Allergen,Severity, Reaction): Coded Allergies: doxycycline (Verified Adverse Reaction, Severe, THROAT SWELLS, 06/19/17) Reported Meds & Prescriptions Reported Meds & Active Scripts Active No Active Prescriptions or Reported Medications Review of Systems Except as stated in HPI: all other systems reviewed are Neg Physical Exam Narrative GENERAL: Well-nourished, well-developed patient. SKIN: Focused skin assessment warm/dry. HEAD: Normocephalic. EYES: No scleral icterus. No injection or drainage. NECK: Supple, trachea midline. No JVD or lymphadenopathy. CARDIOVASCULAR: Regular rate and rhythm without murmurs, gallops, or rubs. RESPIRATORY: Breath sounds equal bilaterally. No accessory muscle use. MUSCULOSKELETAL: No cyanosis, or edema. BACK: No CVA tenderness. No rash. No point tenderness on palpation of the spine. Tenderness palpation to the paraspinous muscles of the lumbar spine. Palpation reproduces her pain. Right knee-tenderness palpation to the medial aspect of patella and along the medial joint line. Neurovascularly intact right lower extremity. Grade 5/5 strength. Full range of motion of knee without clicks or pops. Discomfort with valgus maneuver. No laxity of joint noted. Data Data Last Documented VS Vital Signs Date Time Temp Pulse Resp B/P (MAP) Pulse Ox O2 Delivery O2 Flow Rate FiO2 06/19/17 17:58 98.6 74 18 156/76 (102) 100 Orders Orders Prednisone (Deltasone) (06/19/17 19:00) Ketorolac Inj (Toradol Inj) (06/19/17 19:00) MDM Medical Decision Making Medical Screen Exam Complete: Yes Emergency Medical Condition: Yes Differential Diagnosis Right knee bursitis, prepatellar bursitis, contusion, fracture. Low back pain, sciatica, muscle spasm Narrative Course 21-year-old female with a history of chronic back pain presents emergency department complaining of low back pain and right knee knee pain. Patient states that her back pain started hurting a few days ago while at work. Patient states that movement increases her pain and rest decreases her pain. Patient states that the pain has occasional "stretching and pulling" pain. Denies radiation of pain. Patient points to the lower lumbar region as the location of her low back pain. Says she has used [id number] medications with some relief. She denies any trauma, fever, chills, IV drug use, loss of bowel or bladder function, saddle anesthesia. Of note, patient says that she fell out of a second floor when she was 1 years old. She has had chronic back pain entire life. Says his pain is characteristic of her previous episodes of pain. Her right knee pain is located behind the patella and is "deep" in the knee. Patient says that she has occasional shooting pain behind the kneecap. Says movement increases her pain and rest decreases. Denies radiation of pain. Denies any clicking or popping. Says she does have occasional "giving out" of her knee but denies any falls or trauma to the knee. Denies any numbness or tingling. Vital signs are stable. Physical exam findings are reassuring. Prednisone and Toradol administered in the emergency department. Patient be discharged with Robaxin and prednisone for use at home. Advised that she should follow-up with her primary care physician for further evaluation. Consider an regulatory compliance specialist for evaluation of her chronic back pain. Return for worsening or persistent symptoms. Diagnosis Primary Impression: Muscle spasm Additional Impressions: Lumbago Qualified Codes: M54.5 - Low back pain Knee pain Qualified Codes: M25.561 - Pain in right knee Referrals: [facility]ist Departure Forms: Tests/Procedures, Work Release Enter return to work date: June 20, 2017 Additional Instructions: Perform light stretches of the lower back and legs, and alternate heat and ice packs. If you develop increased pain, weakness, fever, chills, or bowel or bladder issues, return to the ED for further treatment and evaluation. Follow up with your primary care physician in 2-3 days. Use ice or heat for symptom relief. If no contraindications, you may use Tylenol or Motrin per package instructions for your pain. Elevate the joint above the heart to reduce swelling. You may use compression with Vipul wrap or similar to reduce swelling. Scripts Methocarbamol (Robaxin) 500 Mg Tab 500 MG PO TID for Muscle Spasm for 5 Days, TAB 0 Refills Prov: Jermaine Kelley MD 06/19/17 Prednisone (Prednisone) 10 Mg Tab 10 MG PO DAILY for 7 Days, #7 TAB 0 Refills Prov: Jermaine Kelley MD 06/19/17 Disposition: 01 DISCHARGE HOME Condition: Stable Albertina Mcnair June 19, 2017 19:10
[2017-06-19] MEDS ORDERED: PRED10 PO (19:12)
[2017-06-19] MEDS ORDERED: ROBA500T PO (19:12)
== END 2017-06-19 19:54 | disposition home or self-care (01) ==
LOC: PHEFT 17:53
DX: M62.838 Other muscle spasm (principal); M54.5 Low back pain; M25.561 Pain in right knee; D64.9 Anemia, unspecified; I10 Essential (primary) hypertension; G47.30 Sleep apnea, unspecified; F17.200 Nicotine dependence, unspecified, uncomplicated; Z88.8 Allergy status to other drugs, medicaments and biological substances
CPT/HCPCS: 96372; 99283; J1885; J7512